=== PATIENT | male | born 1960 | race Caucasian/White ===

== ENCOUNTER 2018-07-20 13:21 | Emergency (ER) | payer OTHER ==
[2018-07-20 13:34] VITALS: RESP 18; TEMP 98.2
[2018-07-20 15:25] LABS: Basophils # (A) 0.1 k/uL (0-0.2); Basophils % (A) 1 %; Eosinophils # (A) 0.1 k/uL (0-0.7); Eosinophils % (A) 1 %; HCT 44.4 % (39.0-53.0); HGB 14.6 gm/dL (13.0-17.5); Lymphocytes # (A) 1.7 k/uL (1.0-4.8); Lymphocytes % (A) 25 %; MCH 34.8 pg (25.0-35.0); MCV 105.4 fL (80.0-100.0); Macrocytosis Slight; Mean Platelet Volume 6.8; Monocytes # (A) 0.3 k/uL (0-1.0); Monocytes % (A) 5 %; Neutrophils # (A) 4.4 k/uL (1.3-7.7); Neutrophils % (A) 67 %; Platelet Count 336 k/uL (150-450); RBC 4.21 m/uL (4.30-5.90); WBC 6.6 k/uL (3.8-10.6)
[2018-07-20 15:44] LABS: ALT 58 U/L (21-72); AST 94 U/L (17-59); Alkaline Phosphatase 83 U/L (38-126); Anion Gap 11 mmol/L; Blood Urea Nitrogen 16 mg/dL (9-20); Calcium 9.8 mg/dL (8.4-10.2); Carbon Dioxide 23 mmol/L (22-30); Chloride 103 mmol/L (98-107); Glucose 83 mg/dL (74-99); Potassium 5.1 mmol/L (3.5-5.1); Sodium 137 mmol/L (137-145); Total Bilirubin 0.9 mg/dL (0.2-1.3); Total Protein 7.6 g/dL (6.3-8.2)
--- NOTE | 2018-07-20 15:58 | ED ---
Recheck HPI - General Chief Complaint: Recheck/Abnormal Lab/Rx Stated Complaint: HTN Time Seen by Provider: 07/20/18 14:20 Source: patient Mode of arrival: ambulatory Limitations: no limitations - History of Present Illness Initial Comments: This a 58-year-old male with past medical history of hypertension presenting today after being sent by primary care provider for evaluation for elevated blood pressure reading. Patient states that he was at his primary care provider 's office's morning when he had an elevated blood pressure reading, and EKG was obtained which she obtained a copy of. He stated that they were not concerned of the EKG. Patient stated that repeat blood pressures in office were lowering , however physicians and stated that a more thorough evaluation could be obtained in the ER. Pt denies any symptoms including headache, chest pain, dizziness, oliguria, abdominal pain, shortness of breath, shortness of breath with exertion, visual changes, diplopia, palpatations, fever, chills, LE edema, muscle weakness, jaw pain, back pain, nausea, vomiting, diarrhea or any other symptoms. Pt denies symptoms stating that he feels great. Denies history of NH, CAD, TIA or CVA. Upon arrival pt 167/93. Pt appears well, smiling in no acute distress. - Related Data Home Medications Medication Instructions Recorded Confirmed Ibuprofen [Motrin Ib] 400 mg PO Q6H PRN 07/20/18 07/20/18 Previous Rx's Medication Instructions Recorded Lisinopril [Zestril] 5 mg PO DAILY 30 Days #30 tablet 07/20/18 Allergies Allergy/AdvReac Type Severity Reaction Status Date / Time No Known Allergies Allergy Verified 07/20/18 14:21 Review of Systems ROS Statement: Those systems with pertinent positive or pertinent negative responses have been documented in the HPI. ROS Other: All systems not noted in ROS Statement are negative. Constitutional: Denies: fever, chills, weakness, weight change, night sweats Eyes: Denies: vision change ENT: Denies: ear pain, throat pain, hearing loss, epistaxis Respiratory: Denies: cough, dyspnea, wheezes, hemoptysis, stridor Cardiovascular: Denies: chest pain, palpitations, dyspnea on exertion, orthopnea , edema Endocrine: Denies: fatigue Gastrointestinal: Denies: abdominal pain, nausea, vomiting, diarrhea, constipation, hematemesis Genitourinary: Denies: urgency, dysuria, frequency, hematuria, discharge Musculoskeletal: Denies: back pain Skin: Denies: rash, lesions, change in color Neurological: Denies: headache, weakness, numbness, paresthesias, confusion, abnormal gait, vertigo Past Medical History Past Medical History: Hypertension History of Any Multi-Drug Resistant Organisms: None Reported Past Surgical History: Orthopedic Surgery, Tonsillectomy Past Psychological History: No Psychological Hx Reported Smoking Status: Current every day smoker Past Alcohol Use History: Abuse, Daily Past Drug Use History: None Reported General Exam - General Exam Comments Initial Comments: General: The patient is awake and alert, in no distress, and does not appear acutely ill. Pleasant, smiling. (-) Levigns sign. Eye: Pupils are equal, round and reactive to light, extra-ocular movements are intact. No nystagmus. There is normal conjunctiva bilaterally. No signs of icterus. Ears, nose, mouth and throat: There are moist mucous membranes and no oral lesions. Neck: The neck is supple, there is no tenderness or JVD. Cardiovascular: There is a regular rate and rhythm. No murmur, rub or gallop is appreciated. Respiratory: Lungs are clear to auscultation, respirations are non-labored, breath sounds are equal. No wheezes, stridor, rales, or rhonchi. Gastrointestinal: Soft, non-distended, non-tender abdomen without masses or organomegaly noted. There is no rebound or guarding present. No CVA tenderness. Bowel sounds are unremarkable. Musculoskeletal: Normal ROM, no tenderness. Strength 5/5 of the UE and LE equally b/l. Sensation intact. Radial pulses equal bilaterally 2+. No LE edema. Neurological: A&O x 3. CN II-XII intact, There are no obvious motor or sensory deficits. Coordination appears grossly intact. Speech is normal. Skin: Skin is warm and dry and no rashes or lesions are noted. Psychiatric: Cooperative, appropriate mood & affect, normal judgment. Limitations: no limitations Course Vital Signs 07/20/18 07/20/18 13:31 16:00 Temperature 98.2 F Pulse Rate 97 99 Respiratory 18 18 Rate Blood Pressure 131/97 142/107 O2 Sat by Pulse 98 97 Oximetry Medical Decision Making - Medical Decision Making Pt presenting for elevated BP reading with no signs of EOD. EKG from primary care provider was obtained and reviewed by myself and Dr. Schroeder- no specific findings for ACS, heart block or arrythmia. Basic labs were obtained returned unremarkable. Given pt denies any symptoms of EOD. EKG within acceptable limits and lab unremarkable. Pt stated that primary care provider did not start him on BP medications yet, just sent him here first but scheduled an appointment next Monday for BP management. Repeat BP elevated, Pt was given 10mg lisinopril and an RX for 5mg lisinopril daily, thirty day supply according to [facility]NC-8 BP guideline for chronic HTN mgmt. Case discussed with both Dr. Schroeder and Dr. Holcomb prior to d/c. Pt discharged in stable condition. - Lab Data Result diagrams: 07/20/18 15:12 07/20/18 15:12 Lab Results 07/20/18 07/20/18 Range/Units 15:12 15:12 WBC 6.6 (3.8-10.6) k/uL RBC 4.21 L (4.30-5.90) m/uL Hgb 14.6 (13.0-17.5) gm/dL Hct 44.4 (39.0-53.0) % MCV 105.4 H (80.0-100.0) fL MCH 34.8 (25.0-35.0) pg MCHC 33.0 (31.0-37.0) g/dL RDW 13.0 (11.5-15.5) % Plt Count 336 (150-450) k/uL Neutrophils % 67 % Lymphocytes % 25 % Monocytes % 5 % Eosinophils % 1 % Basophils % 1 % Neutrophils # 4.4 (1.3-7.7) k/uL Lymphocytes # 1.7 (1.0-4.8) k/uL Monocytes # 0.3 (0-1.0) k/uL Eosinophils # 0.1 (0-0.7) k/uL Basophils # 0.1 (0-0.2) k/uL Macrocytosis Slight Sodium 137 (137-145) mmol/L Potassium 5.1 (3.5-5.1) mmol/L Chloride 103 (98-107) mmol/L Carbon Dioxide 23 (22-30) mmol/L Anion Gap 11 mmol/L BUN 16 (9-20) mg/dL Creatinine 0.96 (0.66-1.25) mg/dL Est GFR (CKD-EPI)AfAm >90 (>60 ml/min/1.73 sqM) Est GFR (CKD-EPI)NonAf 87 (>60 ml/min/1.73 sqM) Glucose 83 (74-99) mg/dL Calcium 9.8 (8.4-10.2) mg/dL Total Bilirubin 0.9 (0.2-1.3) mg/dL AST 94 H (17-59) U/L ALT 58 (21-72) U/L Alkaline Phosphatase 83 (38-126) U/L Total Protein 7.6 (6.3-8.2) g/dL Albumin 4.0 (3.5-5.0) g/dL Disposition Clinical Impression: Elevated blood pressure reading in office with diagnosis of hypertension Disposition: HOME SELF-CARE Condition: Good Instructions: Hypertension in the Older Adult (ED) Additional Instructions: Please follow-up with family doctor in the next 2 days for blood pressure management. Please return to emergency room if the symptoms increase or worsen or for any other concerns. Prescriptions: Lisinopril [Zestril] 5 mg PO DAILY 30 Days #30 tablet Is patient prescribed a controlled substance at d/c from ED?: No Referrals: Iveth Goode MD [Primary Care Provider] - 1-2 days Time of Disposition: 15:57
[2018-07-20 16:05] VITALS: BP 142/107; PULSE 99
[2018-07-20] MEDS ORDERED: LISINOPRIL 10 MG TAB PO STA (16:07)
== END 2018-07-20 16:26 | disposition home or self-care (01) ==
LOC: EC 13:21
DX: I10 Essential (primary) hypertension (principal); F17.200 Nicotine dependence, unspecified, uncomplicated
CPT/HCPCS: 36415; 80053; 85025; 99283

== ENCOUNTER → 2018-10-01 | Day surgery (SDC) | payer OTHER ==
[2018-09-28 08:45] VITALS: BMI 29.4
[~2018-10-01] MED LIST: LACTATED RINGERS 1,000 ML IV SCH
== END ==
LOC: ORWHC2ENDO 08:39
PROVIDERS: ATTEND Surgery
DX: Z53.9 Procedure and treatment not carried out, unspecified reason (principal)

== ENCOUNTER 2021-12-14 12:53 | Emergency (ER) | payer OTHER ==
[2021-12-14 13:43] VITALS: TEMP 98.5
--- NOTE | 2021-12-14 14:40 | XR ---
EXAMINATION TYPE: XR foot complete bilateral DATE OF EXAM: 12/14/2021 CLINICAL HISTORY: Bilateral foot and heel pain. TECHNIQUE: Frontal, lateral, and oblique images of the bilateral feet are obtained. COMPARISON: None FINDINGS: There is no acute fracture/dislocation evident in either foot. The Vidal's toe is present bilaterally. Mild to moderate narrowing first interphalangeal joint with moderate peripheral spurrin g is seen bilaterally. There is partial visualization of surgical change in the lateral and medial ma lleolus of the left ankle. Overlying soft tissue is unremarkable bilaterally. There is some calcifica tion at distal Achilles tendon insertion on the right noted. IMPRESSION: As above.
[2021-12-14] MEDS ORDERED: Acetaminophen-Codeine 300-30mg TAB PO STA (16:57)
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
[2021-12-14 17:25] VITALS: RESP 18
[2021-12-14 17:59] LABS: ALT 15 U/L (4-49); AST 27 U/L (17-59); African American GFR (CKD) >90 (>60 ml/min/1.73 sqM); Albumin 4.5 g/dL (3.5-5.0); Alkaline Phosphatase 57 U/L (38-126); Anion Gap 13 mmol/L; Blood Urea Nitrogen 8 mg/dL (9-20); Calcium 9.3 mg/dL (8.4-10.2); Carbon Dioxide 19 mmol/L (22-30); Chloride 108 mmol/L (98-107); Glucose 92 mg/dL (74-99); Non-African American GFR(CKD) >90 (>60 ml/min/1.73 sqM); Potassium 4.7 mmol/L (3.5-5.1); Sodium 140 mmol/L (137-145); Total Bilirubin 1.2 mg/dL (0.2-1.3); Total Protein 7.7 g/dL (6.3-8.2)
[2021-12-14] MEDS ORDERED: ACET/COD 300 MG/30 MG STARTER PACK 6 TAB BTL PO STA (19:13)
[2021-12-14 19:26] VITALS: BP 150/84; PULSE 88
== END 2021-12-14 19:25 | disposition home or self-care (01) ==
LOC: EC 12:53
DX: R20.2 Paresthesia of skin (principal); M79.672 Pain in left foot; I10 Essential (primary) hypertension; F17.200 Nicotine dependence, unspecified, uncomplicated; F12.90 Cannabis use, unspecified, uncomplicated
CPT/HCPCS: 36415; 80053; 82607; 83036; 99284

== ENCOUNTER → 2021-12-17 | Outpatient (CLI) | payer OTHER ==
--- NOTE | 2021-12-17 14:32 | US ---
EXAMINATION TYPE: US venous doppler duplex LE LT DATE OF EXAM: 12/17/2021 2:20 PM COMPARISON: US 2013 CLINICAL HISTORY: M79.89 OTHER SPECIFIED SOFT TISSUE DISORDERS. Intermittent left leg pain and swelli ng SIDE PERFORMED: Left TECHNIQUE: The lower extremity deep venous system is examined utilizing real time linear array sonog stepan with graded compression, doppler sonography and color-flow sonography. VESSELS IMAGED: Common Femoral Vein Deep Femoral Vein Greater Saphenous Vein * Femoral Vein Popliteal Vein Small Saphenous Vein * Proximal Calf Veins (* superficial vessels) Left Leg: Appears negative for DVT IMPRESSION: No evidence for DVT.
== END | disposition home or self-care (01) ==
LOC: RADUSWWP 13:52
PROVIDERS: ATTEND Family Medicine
DX: M79.89 Other specified soft tissue disorders (principal)

== ENCOUNTER → 2022-09-19 | Outpatient (CLI) | payer OTHER ==
--- NOTE | 2022-09-19 10:42 | XR ---
EXAMINATION TYPE: XR ribs LT w pa chest xray DATE OF EXAM: 09/19/2022 COMPARISON: NONE HISTORY: Pain TECHNIQUE: Frontal view of the chest and 4 views of the left ribs are submitted FINDINGS: Chronic left-sided rib cage deformity. Heart size normal. Atherosclerotic change aorta. No overt failure. No pneumothorax. No acute displaced rib fracture. IMPRESSION: Chronic left-sided rib fractures with no definite acute fracture.
== END | disposition home or self-care (01) ==
LOC: RADXRMAIN 10:07
PROVIDERS: ATTEND Family Medicine
DX: S22.42XA Multiple fractures of ribs, left side, initial encounter for closed fracture (principal); R93.89 Abnormal findings on diagnostic imaging of other specified body structures; Z87.81 Personal history of (healed) traumatic fracture

== ENCOUNTER → 2023-02-08 | Outpatient (CLI) | payer OTHER ==
[2023-02-08 15:24] LABS: HCT 41.4 % (39.6-50.0); HGB 14.2 g/dL (13.0-17.0); MCH 31.3 pg (27.0-32.0); MCHC 34.3 g/dL (32.0-37.0); MCV 91.4 fL (80.0-97.0); Mean Platelet Volume 9.6 fL (9.5-12.2); NRBC Per 100 WBC 0 /100 WBCS (0.0-0.0); Platelet Count 295 X 10*3/uL (140-440); RBC 4.53 X 10*6/uL (4.40-5.60); RDW 12.5 % (11.5-14.5); WBC 7.01 X 10*3/uL (4.50-10.00)
[2023-02-08 16:23] LABS: African American GFR (CKD) 92.4 (60.0-200.0); Anion Gap 10.9 mmol/L (10.00-18.00); Blood Urea Nitrogen 16.7 mg/dL (9.0-27.0); Carbon Dioxide 24.1 mmol/L (20.0-27.5); Non-African American GFR(CKD) 79.7 (60.0-200.0); Potassium 5.2 mmol/L (3.5-5.5)
== END | disposition home or self-care (01) ==
LOC: LABPAT 09:53
PROVIDERS: ATTEND Internal Medicine
DX: Z01.812 Encounter for preprocedural laboratory examination (principal); R00.2 Palpitations; R06.02 Shortness of breath
CPT/HCPCS: 80051; 82565; 84520; 85027

== ENCOUNTER 2023-02-21 08:12 | Day surgery (SDC) | payer OTHER ==
[2023-02-16 18:04] VITALS: BMI 33.7
[~2023-02-21 08:12] MED LIST changes: +ALPRAZolam 0.25 MG TAB PO PRN; +ALPRAZolam 0.5 MG TAB PO PRN; +ASPIRIN 325 MG TAB PO ONE; +ATORVASTATIN 80 MG TAB PO ONE; +HEPARIN SODIUM,PORCINE 10,000 UNIT in SODIUM CHLORIDE 0.9% 1,000 ML IRRIGATION PRN; +HEPARIN SODIUM,PORCINE 2,500 UNIT in SODIUM CHLORIDE 0.9% 250 ML IRRIGATION PRN; -LACTATED RINGERS 1,000 ML IV SCH; +NITROGLYCERIN SL TABS 0.4 MG TAB SUBLINGUAL PRN; +SODIUM CHLORIDE 0.9% 1,000 ML in EMPTY BAG 1 BAG IV SCH
[2023-02-21] MEDS ORDERED: SODIUM CHLORIDE 0.9% 1,000 ML IV ONE (08:23)
[2023-02-21 10:25] VITALS: TEMP 97.6
[2023-02-21] MEDS ORDERED: VERAPAMIL 2.5 MG/ML 2 ML AMP ONE (10:35)
[2023-02-21] MEDS ORDERED: fentaNYL (PF) 50 MCG/ML 2 ML AMP ONE (10:41)
[2023-02-21] MEDS ORDERED: HEPARIN SODIUM 1,000 UN/ML (10ML VL) ONE (10:41)
[2023-02-21] MEDS ORDERED: fentaNYL (PF) 50 MCG/ML 2 ML AMP IV ONE (10:50)
[2023-02-21] MEDS ORDERED: MIDAZOLAM 2 MG/2 ML VIAL IV ONE (10:50)
[2023-02-21] MEDS ORDERED: LIDOCAINE 1% INJ 10MG/ML (5 ML VIAL-PF) SQ ONE (10:52)
[2023-02-21] MEDS ORDERED: VERAPAMIL SYRINGE (5 MG/10 ML) INTRAARTER ONE (10:53)
[2023-02-21] MEDS: HEPARIN SODIUM 1,000 UN/ML (10ML VL) IV ONE ×2 (10:56→11:13)
[2023-02-21] MEDS ORDERED: IOPAMIDOL-370 100ML BTL INJ ONE ×2 (11:09→11:22)
[2023-02-21 16:47] VITALS: RESP 16
[2023-02-21 16:51] VITALS: PULSE 86
[2023-02-21 16:54] VITALS: BP 139/71
--- NOTE | 2023-02-22 22:41 | P.CARDCATH ---
Date of Procedure: 02/21/23 Description of Procedure: PROCEDURES PERFORMED: Bilateral coronary angiography, iFR RCA INDICATION: Abnormal stress test CONSENT:I have discussed the risks, benefits and alternative therapies for the above-mentioned procedure and for both sedation/analgesia as well as necessary blood product administration, if indicated, as they pertain to this patient. The patient has indicated understanding and acceptance of the risks and procedures discussed. PROCEDURE: After the risks, benefits and alternatives of the above mentioned procedure explained in detail with the patient, informed consent was obtained. Patient was taken to the catheterization lab and prepped and draped in usual fashion. 1% lidocaine was used to anesthetize the right radial artery. A 6- Guyanese sheath was placed in the right radial artery using modified Seldinger technique. Left coronary angiography was performed with a 5-Guyanese JL 3.5 catheter and right coronary angiography was performed with a 5-Guyanese JR5 catheter in various views. The decision was made to perform iFR of the RCA. A 6-Guyanese AL 0.75 guide was used to engage the RCA. A 0.014 pressure wire was advanced into the proximal RCA and normalized. The wire was then advanced in the distal RCA. iFR was performed and was abnormal at 0.79. Given diffuse disease with likely significant difficulty of intervention initial medical therapy was recommended. The right radial sheath was removed and a TR band was placed with hemostasis achieved. The patient tolerated the procedure well. Patient was transported back to the post catheterization holding area in stable condition. Conscious Sedation: Patient was monitored under the direct supervision of myself for conscious sedation using Versed and fentanyl for a total duration of 24 minutes HEMODYNAMICS: Aorta: 144/76 SELECTIVE CORONARY ARTERIOGRAPHY: LEFT MAIN: The left main is a large caliber vessel which bifurcates into the LAD and circumflex. There is no significant stenosis. LEFT ANTERIOR DESCENDING CORONARY ARTERY: LAD is a large caliber vessel which wraps around to the apex. There is a mid LAD 40-50% stenosis just after the takeoff of 2 diagonal branches with nearly trifurcation. Otherwise there are mild luminal irregularities. LEFT CIRCUMFLEX CORONARY ARTERY: Left circumflex is a moderate caliber vessel with mild luminal irregularities. OM1 is small caliber and OM2 is moderate caliber with a mid 60-70% stenosis. RIGHT CORONARY ARTERY: The right coronary artery is a large caliber vessel which gives off a PDA and PLV branch and is the dominant vessel. There is diffuse heavily calcified stenosis with proximal long 50-80% stenosis and mid to distal diffuse 50-80% stenosis. FINAL IMPRESSION: 1. CAD as described above including 40-50% LAD, OM2 60-70%, proximal and distal RCA 50-80% stenosis 2. iFR abnormal of RCA PLAN: 1. Aggressive risk factor modification per most recent ACC/AHA guidelines. 2. Given long, heavily calcified and diffuse disease with likely difficult stenting with iFR wire pushing out the AL 0.75 guide, recommend trial of medical therapy. If having further angina, may consider trial of PCI likely from a femoral approach and possibly with 8FR catheters.
== END 2023-02-21 15:41 | disposition home or self-care (01) ==
LOC: CATHCVL 08:12
PROVIDERS: ATTEND Internal Medicine
DX: I25.10 Atherosclerotic heart disease of native coronary artery without angina pectoris (principal); I25.9 Chronic ischemic heart disease, unspecified; I49.3 Ventricular premature depolarization; I10 Essential (primary) hypertension; E78.5 Hyperlipidemia, unspecified; F10.90 Alcohol use, unspecified, uncomplicated; F17.210 Nicotine dependence, cigarettes, uncomplicated; Z82.49 Family history of ischemic heart disease and other diseases of the circulatory system; Z79.899 Other long term (current) drug therapy
CPT/HCPCS: 93454; 93799; 76937; 99152; 99153; C1887; C1769 ×2; C1894; J2250; J2001; J3010; J1644; Q9967

== ENCOUNTER 2023-12-03 14:29 | Inpatient (IN) | payer OTHER ==
--- NOTE | 2023-12-03 15:58 | ED ---
Abdominal Pain HPI - General Chief Complaint: Abdominal Pain Stated Complaint: NVD/Weakness Time Seen by Provider: 12/03/23 15:24 Source: patient, RN notes reviewed Mode of arrival: ambulatory Limitations: no limitations - History of Present Illness Initial Comments: This is a 63-year-old male who presents to the emergency department for weakness, shortness of breath, and heartburn. About a week ago, he had severe nausea and vomiting. That improved, however over the last several days anytime he tries to eat or even drink water, he develops severe heartburn almost immediately afterwards. He has been taking Tums, which have not been effective. Also reports feeling very weak and short of breath, which is uncommon for him. Denies any history of similar symptoms in the past. States that he barely has the energy to move through his apartment. MD Complaint: abdominal pain - Related Data Home Medications Medication Instructions Recorded Confirmed Atorvastatin [Lipitor] 20 mg PO HS 02/16/23 12/03/23 allopurinoL 100 mg PO DAILY 02/16/23 12/03/23 amLODIPine [Norvasc] 10 mg PO DAILY 02/16/23 12/03/23 Calcium Carbonate [Tums] 1,000 mg PO TID PRN 12/03/23 12/03/23 Allergies Allergy/AdvReac Type Severity Reaction Status Date / Time No Known Allergies Allergy Verified 12/03/23 14:45 Review of Systems ROS Statement: Those systems with pertinent positive or pertinent negative responses have been documented in the HPI. ROS Other: All systems not noted in ROS Statement are negative. Past Medical History Past Medical History: Hyperlipidemia, Hypertension, Osteoarthritis (OA) Additional Past Medical History / Comment(s): gout, past skull fracture (fell off bridge), tingling at times bilateral hands History of Any Multi-Drug Resistant Organisms: None Reported Past Surgical History: Orthopedic Surgery, Tonsillectomy Additional Past Surgical History / Comment(s): L foot plate/screws, rhinoplasty Past Anesthesia/Blood Transfusion Reactions: No Reported Reaction Past Psychological History: No Psychological Hx Reported Smoking Status: Current every day smoker Past Alcohol Use History: Abuse, Daily, Heavy Past Drug Use History: Marijuana - Past Family History Mother Family Medical History: Cancer Additional Family Medical History / Comment(s): Pt cannot recall type of cancer. Father Additional Family Medical History / Comment(s): ETOH General Exam Limitations: no limitations General appearance: alert, in no apparent distress Head exam: Present: atraumatic, normocephalic, normal inspection Respiratory exam: Present: normal lung sounds bilaterally. Absent: respiratory distress, wheezes, rales, rhonchi, stridor Cardiovascular Exam: Present: normal rhythm, tachycardia, normal heart sounds GI/Abdominal exam: Present: soft, normal bowel sounds. Absent: distended, tenderness, guarding, rebound, rigid Neurological exam: Present: alert, oriented X3, CN II-XII intact Psychiatric exam: Present: normal affect, normal mood Skin exam: Present: warm, dry, intact, normal color. Absent: rash Course Vital Signs 12/03/23 12/03/23 12/03/23 14:41 15:41 20:20 Temperature 98.4 F Pulse Rate 70 79 76 Respiratory 22 20 20 Rate Blood Pressure 100/75 138/105 140/101 O2 Sat by Pulse 99 97 97 Oximetry 12/03/23 12/03/23 12/04/23 22:05 22:11 00:00 Temperature Pulse Rate 74 68 Respiratory Rate Blood Pressure 144/102 O2 Sat by Pulse Oximetry 12/04/23 12/04/23 02:10 04:17 Temperature Pulse Rate 66 76 Respiratory 18 18 Rate Blood Pressure 125/89 112/77 O2 Sat by Pulse 97 98 Oximetry Medical Decision Making - Medical Decision Making This is a 63-year-old male who presents to the emergency department for weakness, shortness of breath, and heartburn. Was pt. sent in by a medical professional or institution? @ -No Did you speak to anyone other than the patient for history? @ -No Did you review nursing and triage notes? @ -Yes, and I agree, it is accurate with regards to the patient's symptoms. Were old charts reviewed? @ -No Differential Diagnosis? @ -Differential Weakness: Hypoglycemia, shock, sepsis, hyponatremia, anemia, infection, NC, ETOH, adverse medicine reaction, overdose, stroke, this is not meant to be an all-inclusive list. EKG interpreted by me (3pts min.)? @ -EKG interpreted by me demonstrating the following: Sinus tachycardia. Ventricular rate 107 bpm, HI interval 189 ms, QRS duration 95 ms, QTC 381 ms. X-rays interpreted by me (1pt min.)? @ -Chest x-ray obtained. My interpretation identifies no localized consolidations or infiltrates. CT interpreted by me (1pt min.)? @ -Not obtained U/S interpreted by me (1pt. min.)? @ -Gallbladder US obtained. My interpretation identifies no evidence of wall thickening. What testing was considered but not performed? (CT, X-rays, U/S, labs)? Why? @ -None What meds were considered but not given? Why? @ -None Did you discuss the management of the patient with other professionals? @ -Yes, Virginia Barron with [facility], who accepts the patient for admission. Did you reconcile home meds? @ -Yes - Tums on hold due to hypercalcemia Was smoking cessation discussed for >3mins.? @ -I discussed smoking cessation for greater than 3 minutes. The risk of smoking were discussed with the patient including but not limited to risks of cancer, stroke, coronary artery disease and COPD. Also discussed with patient were multiple methods of quitting smoking. Lastly we discussed the financial cost of smoking. Was critical care preformed (if so, how long)? @ -No Were there social determinants of health that impacted care today? How? (Homelessness, low income, unemployed, alcoholism, drug addiction, transportatio n, low edu. Level, literacy, decrease access to med. care, residential, rehab)? @ -No Was there de-escalation of care discussed even if they declined? (Discuss DNR or withdrawal of care, Hospice)? @ -No What co-morbidities impacted this encounter? (DM, HTN, Smoking, COPD, CAD, Cancer, CVA, Hep., AIDS, mental health diagnosis, sleep apnea, morbid obesity)? @ -HTN, HLD, smoking Was patient admitted / discharged? @ -Admitted. Lab work obtained revealing critically elevated calcium of 16.5 and ionized calcium of 8.0. LFTs are also elevated. Magnesium slightly low at 1.5. Chest x-ray reveals no acute process. Ultrasound of the gallbladder obtained given the elevated LFTs. This revealed hepatic steatosis with biliary sludge and adenomyomatosis. CBD was within normal limits and no acute process was identified. Given the patient's excessive alcohol use, this is unlikely to be suggestive of an acute problem and can likely be worked up on a nonemergent basis. Patient not currently exhibiting any abdominal pain. Heartburn may be related to GERD or a gastritis. He was given a dose of pantoprazole in the emergency department. Patient given 2 L bolus of IV fluids and started on maintenance IV fluids for hypercalcemia. Calcitonin also administered given the critically elevated calcium level as well as 400 mg of magnesium oxide. Patient admitted to medicine for hypercalcemia and weakness. PTH, vitamin D, hepatitis panel, and heterophile ordered with results pending at the time of admission. Patient has been using Tums fairly excessively due to heartburn, which may be a contributing factor to the hypercalcemia. Tums listed under patient's home meds and placed on hold due to hypercalcemia. Consult placed for nephrology and general surgery. Undiagnosed new problem with uncertain prognosis? @ -None Drug Therapy requiring intensive monitoring for toxicity (Heparin, Nitro, Insulin, Cardizem)? @ -None Were any procedures done? @ -None Diagnosis/symptom? @ -Hypercalcemia, weakness Acute, or Chronic, or Acute on Chronic? @ -Acute Uncomplicated (without systemic symptoms) or Complicated (systemic symptoms)? @ -Complicated Side effects of treatment? @ -None Exacerbation, Progression, or Severe Exacerbation] @ -Not applicable Poses a threat to life or bodily function? @ -Yes This case was discussed in detail with the attending ED physician, Dr. Mathews. Presentation, findings, and treatment plan discussed in detail as well. - Lab Data Result diagrams: 12/03/23 15:51 12/03/23 15:51 Lab Results 12/03/23 12/03/23 12/03/23 Range/Units 15:51 15:51 15:51 WBC 5.5 (3.8-10.6) k/uL RBC 4.93 (4.30-5.90) m/uL Hgb 16.5 (13.0-17.5) gm/dL Hct 48.5 (39.0-53.0) % MCV 98.5 (80.0-100.0) fL MCH 33.6 (25.0-35.0) pg MCHC 34.1 (31.0-37.0) g/dL RDW 13.3 (11.5-15.5) % Plt Count 269 (150-450) k/uL MPV 8.3 Neutrophils % 54 % Lymphocytes % 27 % Monocytes % 15 % Eosinophils % 1 % Basophils % 1 % Neutrophils # 2.9 (1.3-7.7) k/uL Lymphocytes # 1.5 (1.0-4.8) k/uL Monocytes # 0.8 (0-1.0) k/uL Eosinophils # 0.1 (0-0.7) k/uL Basophils # 0.1 (0-0.2) k/uL PT (10.0-12.5) sec INR (<1.2) APTT (22.0-30.0) sec D-Dimer (<0.60) mg/L FEU Sodium 136 L (137-145) mmol/L Potassium 4.2 (3.5-5.1) mmol/L Chloride 94 L (98-107) mmol/L Carbon Dioxide 33 H (22-30) mmol/L Anion Gap 9 mmol/L BUN 23 H (9-20) mg/dL Creatinine 1.32 H (0.66-1.25) mg/dL Est GFR (CKD-EPI)AfAm 66 (>60 ml/min/1.73 sqM) Est GFR (CKD-EPI)NonAf 57 (>60 ml/min/1.73 sqM) Glucose 119 H (74-99) mg/dL Plasma Lactic Acid Chau 1.8 (0.7-2.0) mmol/L Calcium 16.5 H* (8.4-10.2) mg/dL Ionized Calcium Lucho (4.5-5.3) mg/dL Phosphorus (2.5-4.5) mg/dL Magnesium (1.6-2.3) mg/dL Total Bilirubin 0.9 (0.2-1.3) mg/dL AST 648 H (17-59) U/L ALT 514 H (4-49) U/L Alkaline Phosphatase 79 (38-126) U/L Troponin I (0.000-0.034) ng/mL Total Protein 7.7 (6.3-8.2) g/dL Albumin 4.5 (3.5-5.0) g/dL Amylase 54 (30-110) U/L Lipase 247 (23-300) U/L Heterophile Antibody (Negative) 12/03/23 12/03/23 12/03/23 Range/Units 16:39 16:39 16:39 WBC (3.8-10.6) k/uL RBC (4.30-5.90) m/uL Hgb (13.0-17.5) gm/dL Hct (39.0-53.0) % MCV (80.0-100.0) fL MCH (25.0-35.0) pg MCHC (31.0-37.0) g/dL RDW (11.5-15.5) % Plt Count (150-450) k/uL MPV Neutrophils % % Lymphocytes % % Monocytes % % Eosinophils % % Basophils % % Neutrophils # (1.3-7.7) k/uL Lymphocytes # (1.0-4.8) k/uL Monocytes # (0-1.0) k/uL Eosinophils # (0-0.7) k/uL Basophils # (0-0.2) k/uL PT 11.6 (10.0-12.5) sec INR 1.1 (<1.2) APTT 19.7 L (22.0-30.0) sec D-Dimer 0.49 (<0.60) mg/L FEU Sodium (137-145) mmol/L Potassium (3.5-5.1) mmol/L Chloride (98-107) mmol/L Carbon Dioxide (22-30) mmol/L Anion Gap mmol/L BUN (9-20) mg/dL Creatinine (0.66-1.25) mg/dL Est GFR (CKD-EPI)AfAm (>60 ml/min/1.73 sqM) Est GFR (CKD-EPI)NonAf (>60 ml/min/1.73 sqM) Glucose (74-99) mg/dL Plasma Lactic Acid Chau (0.7-2.0) mmol/L Calcium (8.4-10.2) mg/dL Ionized Calcium Lucho 8.0 H* (4.5-5.3) mg/dL Phosphorus 3.2 (2.5-4.5) mg/dL Magnesium 1.5 L (1.6-2.3) mg/dL Total Bilirubin (0.2-1.3) mg/dL AST (17-59) U/L ALT (4-49) U/L Alkaline Phosphatase (38-126) U/L Troponin I <0.012 (0.000-0.034) ng/mL Total Protein (6.3-8.2) g/dL Albumin (3.5-5.0) g/dL Amylase (30-110) U/L Lipase (23-300) U/L Heterophile Antibody (Negative) 12/03/23 Range/Units 16:39 WBC (3.8-10.6) k/uL RBC (4.30-5.90) m/uL Hgb (13.0-17.5) gm/dL Hct (39.0-53.0) % MCV (80.0-100.0) fL MCH (25.0-35.0) pg MCHC (31.0-37.0) g/dL RDW (11.5-15.5) % Plt Count (150-450) k/uL MPV Neutrophils % % Lymphocytes % % Monocytes % % Eosinophils % % Basophils % % Neutrophils # (1.3-7.7) k/uL Lymphocytes # (1.0-4.8) k/uL Monocytes # (0-1.0) k/uL Eosinophils # (0-0.7) k/uL Basophils # (0-0.2) k/uL PT (10.0-12.5) sec INR (<1.2) APTT (22.0-30.0) sec D-Dimer (<0.60) mg/L FEU Sodium (137-145) mmol/L Potassium (3.5-5.1) mmol/L Chloride (98-107) mmol/L Carbon Dioxide (22-30) mmol/L Anion Gap mmol/L BUN (9-20) mg/dL Creatinine (0.66-1.25) mg/dL Est GFR (CKD-EPI)AfAm (>60 ml/min/1.73 sqM) Est GFR (CKD-EPI)NonAf (>60 ml/min/1.73 sqM) Glucose (74-99) mg/dL Plasma Lactic Acid Chau (0.7-2.0) mmol/L Calcium (8.4-10.2) mg/dL Ionized Calcium Lucho (4.5-5.3) mg/dL Phosphorus (2.5-4.5) mg/dL Magnesium (1.6-2.3) mg/dL Total Bilirubin (0.2-1.3) mg/dL AST (17-59) U/L ALT (4-49) U/L Alkaline Phosphatase (38-126) U/L Troponin I (0.000-0.034) ng/mL Total Protein (6.3-8.2) g/dL Albumin (3.5-5.0) g/dL Amylase (30-110) U/L Lipase (23-300) U/L Heterophile Antibody Negative (Negative) - Radiology Data Radiology results: report reviewed, image reviewed Disposition Clinical Impression: Hypercalcemia, Weakness, Nicotine dependence Disposition: ADMITTED IP TO THIS [facility] Time of Disposition: 18:00
[2023-12-03 16:08] LABS: Basophils # (A) 0.1 k/uL (0-0.2); Basophils % (A) 1 %; Eosinophils # (A) 0.1 k/uL (0-0.7); Eosinophils % (A) 1 %; HCT 48.5 % (39.0-53.0); HGB 16.5 gm/dL (13.0-17.5); Lymphocytes # (A) 1.5 k/uL (1.0-4.8); Lymphocytes % (A) 27 %; MCH 33.6 pg (25.0-35.0); MCHC 34.1 g/dL (31.0-37.0); MCV 98.5 fL (80.0-100.0); Mean Platelet Volume 8.3; Monocytes # (A) 0.8 k/uL (0-1.0); Monocytes % (A) 15 %; Neutrophils # (A) 2.9 k/uL (1.3-7.7); Neutrophils % (A) 54 %; Platelet Count 269 k/uL (150-450); RBC 4.93 m/uL (4.30-5.90); RDW 13.3 % (11.5-15.5); WBC 5.5 k/uL (3.8-10.6)
[2023-12-03 16:10] LABS: ALT 514 U/L (4-49); AST 648 U/L (17-59); African American GFR (CKD) 66 (>60 ml/min/1.73 sqM); Albumin 4.5 g/dL (3.5-5.0); Alkaline Phosphatase 79 U/L (38-126); Amylase 54 U/L (30-110); Anion Gap 9 mmol/L; Blood Urea Nitrogen 23 mg/dL (9-20); Carbon Dioxide 33 mmol/L (22-30); Chloride 94 mmol/L (98-107); Glucose 119 mg/dL (74-99); Lipase 247 U/L (23-300); Non-African American GFR(CKD) 57 (>60 ml/min/1.73 sqM); Potassium 4.2 mmol/L (3.5-5.1); Sodium 136 mmol/L (137-145); Total Bilirubin 0.9 mg/dL (0.2-1.3); Total Protein 7.7 g/dL (6.3-8.2)
[2023-12-03 16:21] LABS: Calcium 16.5 mg/dL (8.4-10.2)
[2023-12-03] MEDS: SODIUM CHLORIDE 0.9% 1,000 ML IV STA ×3 (16:33→19:13)
[2023-12-03 17:09] LABS: INR 1.1 (<1.2); Prothrombin Time 11.6 sec (10.0-12.5)
[2023-12-03 17:28] LABS: Partial Thromboplastin Time 19.7 sec (22.0-30.0)
[2023-12-03 17:31] LABS: Magnesium 1.5 mg/dL (1.6-2.3); Phosphorus 3.2 mg/dL (2.5-4.5)
--- NOTE | 2023-12-03 17:33 | US ---
EXAMINATION TYPE: US gallbladder DATE OF EXAM: 12/03/2023 COMPARISON: NONE CLINICAL INDICATION: Male, 63 years old with history of Elevated LFTs, N/V; N/V, elevated LFT's TECHNIQUE: Multiple sonographic images of the right upper quadrant are obtained. FINDINGS: EXAM MEASUREMENTS: Liver Length: 20.2 cm Gallbladder Wall: 0.3 cm CBD: 0.3 cm Right Kidney: 11.6 x 5.7 x 6.5 cm Pancreas: Obscured by bowel gas Liver: Enlarged, heterogeneous with increased echotexture. Gallbladder: Sludge with possible adenomyomatosis anterior wall comet tail artifact present. The wal ls are within normal limits.. Evidence for sonographic Collier's sign: No CBD: wnl Right Kidney: wnl IMPRESSION: 1. Hepatic steatosis. 2. Biliary sludge with fundal adenomyomatosis.
[2023-12-03] MEDS: MAGNESIUM OXIDE 400 MG TAB PO STA (18:01)
[2023-12-03] MEDS ORDERED: NALOXONE 0.4 MG/ML 1 ML VIAL IV PRN (18:02)
[2023-12-03] MEDS ORDERED: MORPHINE SULFATE 4 MG/ML SYRINGE IV PRN (18:02)
[2023-12-03] MEDS ORDERED: ACETAMINOPHEN TAB 325 MG TAB PO PRN (18:02)
[2023-12-03 18:37] LABS: Appearance,Urine Cloudy (Clear); Bacteria,Urine Rare /hpf; Bilirubin,Urine Negative (Negative); Blood,Urine Trace (Negative); Cellular Casts,Urine 9 /lpf (0); Color,Urine Yellow; Glucose,Urine (UA) Negative (Negative); Hyaline Casts,Urine 31 /lpf (0-2); Ketones,Urine Negative (Negative); Leukocyte Esterase,Urine Small (Negative); Mucus,Urine Few /hpf; Nitrite,Urine Negative (Negative); PH, Urine 5.5 (5.0-8.0); Protein,Urine 1+ (Negative); RBC,Urine 5 /hpf (0-5); Specific Gravity,Urine 1.028 (1.001-1.035); Squamous Epithelial Cell,Urine 1 /hpf (0-4); Triple Phosphate Crystal,Urine Occasional /hpf; WBC,Urine 24 /hpf (0-5)
[2023-12-03] MEDS: CALCITONIN INJ 200 UNIT/ML (MDV) VIAL SQ ONE (19:12)
--- NOTE | 2023-12-03 19:13 | XR ---
EXAMINATION TYPE: XR chest 2V DATE OF EXAM: 12/03/2023 6:25 PM CLINICAL INDICATION:Male, 63 years old with history of BARRY; [facility] COMPARISON: Chest radiographs from 09/19/2022 TECHNIQUE: XR chest 2V Frontal and lateral views of the chest. FINDINGS: Lungs/Pleura: There is no evidence of pleural effusion, focal consolidation, or pneumothorax. Pulmonary vascularity: Unremarkable. Heart/mediastinum: Cardiomediastinal silhouette is unremarkable. Musculoskeletal: No acute osseous pathology. IMPRESSION: No acute cardiopulmonary disease/process.
[2023-12-03] MEDS: FAMOTIDINE 20 MG/2 ML VIAL IV STA (20:12)
[2023-12-03] MEDS: MAG HYDROX/AL HYDROX/SIMETH 30 ML, HYOSCYAMINE ELIXIR 10 ML, LIDOCAINE VISCOUS 2% 10 ML PO STA (20:12)
[2023-12-03] MEDS: PANTOPRAZOLE 40 MG/10 ML VIAL IVP STA (20:17)
[2023-12-03] MEDS: ATORVASTATIN 20 MG TAB PO SCH (22:03)
[2023-12-04] MEDS: PANTOPRAZOLE 40 MG/10 ML VIAL IV SCH (08:55)
[2023-12-04] MEDS: allopurinoL 100 MG TAB PO SCH (08:59)
[2023-12-04] MEDS: amLODIPine 10 MG TAB PO SCH (08:59)
[2023-12-04 09:54] LABS: ALT 380 U/L (4-49); AST 407 U/L (17-59); African American GFR (CKD) >90 (>60 ml/min/1.73 sqM); Albumin 3.5 g/dL (3.5-5.0); Albumin/Globulin Ratio 1.3; Alkaline Phosphatase 62 U/L (38-126); Anion Gap 5 mmol/L; Blood Urea Nitrogen 16 mg/dL (9-20); Calcium 11.2 mg/dL (8.4-10.2); Carbon Dioxide 34 mmol/L (22-30); Chloride 99 mmol/L (98-107); Globulin 2.6 g/dL; Glucose 102 mg/dL (74-99); Non-African American GFR(CKD) >90 (>60 ml/min/1.73 sqM); Potassium 3.9 mmol/L (3.5-5.1); Sodium 138 mmol/L (137-145); Total Bilirubin 0.8 mg/dL (0.2-1.3); Total Protein 6.1 g/dL (6.3-8.2)
[2023-12-04 10:06] LABS: Hepatitis A Antibody IgM Nonreactive; Hepatitis B Core IgM Nonreactive; Hepatitis B Surface Antigen Nonreactive; Hepatitis C IgG Antibody Nonreactive
--- NOTE | 2023-12-04 11:53 | P.GSCN ---
History of Present Illness Consult date: 12/04/23 History of present illness: CHIEF COMPLAINT: Heartburn HISTORY OF PRESENT ILLNESS: This is a 63-year-old male who presented to the ER with complaints of heartburn weakness and shortness of breath. Patient reports that he has been having significant heartburn after eating. He is also been having nausea and vomiting. Denies abdominal pain. But does report that the h eartburn does go down into the epigastric area. He has been taking a lot of Tums with no improvement in symptoms. He drinks a pint of whiskey daily. Last alcoholic beverage was on Monday. Patient gallbladder ultrasound completed reporting hepatic steatosis and biliary sludge with fundal adenomyomatosis. Patient denies any blood thinners. Denies any cardiac history. He is a smoker. Patient is on room air satting at 97%. PAST MEDICAL HISTORY: Hyperlipidemia, Hypertension, Osteoarthritis (OA),gout, past skull fracture (fell off bridge), PAST SURGICAL HISTORY: See below. Orthopedic Surgery, Tonsillectomy MEDICATIONS: See below ALLERGIES: See below SOCIAL HISTORY: No illicit drug use. Daily alcohol use. Nicotine dependence. REVIEW OF SYSTEMS: CONSTITUTIONAL: Denies fever or chills. HEENT: Denies blurred vision, vision changes, or eye pain. Denies hemoptysis CARDIOVASCULAR: Denies chest pain or pressure. RESPIRATORY: No shortness of breath. GASTROINTESTINAL: See HPI for pertinent findings HEMATOLOGIC: Denies bleeding disorders. GENITOURINARY: Denies any blood in urine or increased urinary frequency. SKIN: Denies pruitis. Denies rash. PHYSICAL EXAM: VITAL SIGNS: Reviewed GENERAL: Well-developed in no acute distress. ABDOMEN: Soft. Nondistended. Nontender NEUROLOGIC: Alert and oriented. Cranial nerves II through XII grossly intact. LABORATORY DATA: WBC 5.5 Hgb of 16.5 platelets 269 INR 1.1 D-dimer 0.49 Sodium 138 potassium is 3.9 creatinine 1.32 down to 0.88 Calcium 16.5 down to 11.2 Total bilirubin 0.8 AST 648 down to 407 ALT 514 down to 380 Alk phos 62 Lipase 247 Hepatitis panel negative IMAGING: Gallbladder ultrasound reports hepatic steatosis and biliary sludge with fundal adenomyomatosis Chest x-ray no acute cardiopulmonary process ASSESSMENT: 1. Chronic cholecystitis. Ultrasound revealing biliary sludge with fundal adenomyomatosis 2. Hepatic steatosis 3. Daily alcohol use 4. Elevated LFTs PLAN: -Patient scheduled for laparoscopic cholecystectomy tomorrow with Dr. Ventura -Start clear liquid diet -N.p.o. after midnight -Repeat LFTs in a.m. Physician Train Operations Supervisor note has been reviewed by physician. Signing provider agrees with the documented findings, assessment, and plan of care. Past Medical History Past Medical History: Hyperlipidemia, Hypertension, Osteoarthritis (OA) Additional Past Medical History / Comment(s): gout, past skull fracture (fell off bridge), tingling at times bilateral hands History of Any Multi-Drug Resistant Organisms: None Reported Past Surgical History: Orthopedic Surgery, Tonsillectomy Additional Past Surgical History / Comment(s): L foot plate/screws, rhinoplasty Past Anesthesia/Blood Transfusion Reactions: No Reported Reaction Past Psychological History: No Psychological Hx Reported Smoking Status: Current every day smoker Past Alcohol Use History: Abuse, Daily, Heavy Past Drug Use History: Marijuana - Past Family History Mother Family Medical History: Cancer Additional Family Medical History / Comment(s): Pt cannot recall type of cancer. Father Additional Family Medical History / Comment(s): ETOH Medications and Allergies Home Medications Medication Instructions Recorded Confirmed Type Atorvastatin [Lipitor] 20 mg PO HS 02/16/23 12/03/23 History allopurinoL 100 mg PO DAILY 02/16/23 12/03/23 History amLODIPine [Norvasc] 10 mg PO DAILY 02/16/23 12/03/23 History Calcium Carbonate [Tums] 1,000 mg PO TID PRN 12/03/23 12/03/23 History Allergies Allergy/AdvReac Type Severity Reaction Status Date / Time No Known Allergies Allergy Verified 12/03/23 14:45 Surgical - Exam Vital Signs Temp Pulse Resp BP Pulse Ox 98.4 F 70 22 100/75 99 12/03/23 14:41 12/03/23 14:41 12/03/23 14:41 12/03/23 14:41 12/03/23 14:41 Results - Labs 12/03/23 15:51 12/04/23 07:17 Abnormal Lab Results - Last 24 Hours (Table) 12/03/23 12/03/23 12/03/23 Range/Units 15:51 16:39 16:39 APTT 19.7 L (22.0-30.0) sec Sodium 136 L (137-145) mmol/L Chloride 94 L (98-107) mmol/L Carbon Dioxide 33 H (22-30) mmol/L BUN 23 H (9-20) mg/dL Creatinine 1.32 H (0.66-1.25) mg/dL Glucose 119 H (74-99) mg/dL Calcium 16.5 H* (8.4-10.2) mg/dL Ionized Calcium Lucho 8.0 H* (4.5-5.3) mg/dL Magnesium 1.5 L (1.6-2.3) mg/dL AST 648 H (17-59) U/L ALT 514 H (4-49) U/L Total Protein (6.3-8.2) g/dL PTH Intact (14.0-72.0) pg/mL Urine Protein (Negative) Urine Blood (Negative) Ur Leukocyte Esterase (Negative) Urine WBC (0-5) /hpf Triple Phos Crystals (None) /hpf Urine Bacteria (None) /hpf Hyaline Casts (0-2) /lpf Urine Mucus (None) /hpf 12/03/23 12/03/23 12/04/23 Range/Units 18:04 20:00 07:17 APTT (22.0-30.0) sec Sodium (137-145) mmol/L Chloride (98-107) mmol/L Carbon Dioxide 34 H (22-30) mmol/L BUN (9-20) mg/dL Creatinine (0.66-1.25) mg/dL Glucose 102 H (74-99) mg/dL Calcium 11.2 H (8.4-10.2) mg/dL Ionized Calcium Lucho (4.5-5.3) mg/dL Magnesium (1.6-2.3) mg/dL AST 407 H (17-59) U/L ALT 380 H (4-49) U/L Total Protein 6.1 L (6.3-8.2) g/dL PTH Intact 7.8 L (14.0-72.0) pg/mL Urine Protein 1+ H (Negative) Urine Blood Trace H (Negative) Ur Leukocyte Esterase Small H (Negative) Urine WBC 24 H (0-5) /hpf Triple Phos Crystals Occasional H (None) /hpf Urine Bacteria Rare H (None) /hpf Hyaline Casts 31 H (0-2) /lpf Urine Mucus Few H (None) /hpf Diabetes panel 12/03/23 12/04/23 Range/Units 15:51 07:17 Sodium 136 L 138 (137-145) mmol/L Potassium 4.2 3.9 (3.5-5.1) mmol/L Chloride 94 L 99 (98-107) mmol/L Carbon Dioxide 33 H 34 H (22-30) mmol/L BUN 23 H 16 (9-20) mg/dL Creatinine 1.32 H 0.88 (0.66-1.25) mg/dL Glucose 119 H 102 H (74-99) mg/dL Calcium 16.5 H* 11.2 H (8.4-10.2) mg/dL AST 648 H 407 H (17-59) U/L ALT 514 H 380 H (4-49) U/L Alkaline Phosphatase 79 62 (38-126) U/L Total Protein 7.7 6.1 L (6.3-8.2) g/dL Albumin 4.5 3.5 (3.5-5.0) g/dL Calcium panel 12/03/23 12/03/23 12/04/23 Range/Units 15:51 16:39 07:17 Calcium 16.5 H* 11.2 H (8.4-10.2) mg/dL Ionized Calcium Lucho 8.0 H* (4.5-5.3) mg/dL Phosphorus 3.2 (2.5-4.5) mg/dL Albumin 4.5 3.5 (3.5-5.0) g/dL Pituitary panel 12/03/23 12/04/23 Range/Units 15:51 07:17 Sodium 136 L 138 (137-145) mmol/L Potassium 4.2 3.9 (3.5-5.1) mmol/L Chloride 94 L 99 (98-107) mmol/L Carbon Dioxide 33 H 34 H (22-30) mmol/L BUN 23 H 16 (9-20) mg/dL Creatinine 1.32 H 0.88 (0.66-1.25) mg/dL Glucose 119 H 102 H (74-99) mg/dL Calcium 16.5 H* 11.2 H (8.4-10.2) mg/dL Adrenal panel 02/18/24 02/19/24 Range/Units 15:51 07:17 Sodium 136 L 138 (137-145) mmol/L Potassium 4.2 3.9 (3.5-5.1) mmol/L Chloride 94 L 99 (98-107) mmol/L Carbon Dioxide 33 H 34 H (22-30) mmol/L BUN 23 H 16 (9-20) mg/dL Creatinine 1.32 H 0.88 (0.66-1.25) mg/dL Glucose 119 H 102 H (74-99) mg/dL Calcium 16.5 H* 11.2 H (8.4-10.2) mg/dL Total Bilirubin 0.9 0.8 (0.2-1.3) mg/dL AST 648 H 407 H (17-59) U/L ALT 514 H 380 H (4-49) U/L Alkaline Phosphatase 79 62 (38-126) U/L Total Protein 7.7 6.1 L (6.3-8.2) g/dL Albumin 4.5 3.5 (3.5-5.0) g/dL
--- NOTE | 2023-12-04 11:54 | P.HPIM ---
History of Present Illness This 21 patient is a 33-year-old male, complains of nausea vomiting epigastric burning sensation and burning sensation in the chest has been going on for few days patient has been taking Tums Patient has been taking about 20 times a day which contains calcium. Patient found to be hypercalcemic with serum calcium of 16. Patient was given IV fluids with rapid improvement in calcium patient was given calcitonin as well. Patient is n.p.o. show patient is complaining of nausea vomiting. Patient has history of coronary artery disease in the past EKG showed lymphoproliferative changes no acute ST-T wave changes. Last inferior leads no abnormalities on EKG troponins were negative. REVIEW OF SYSTEMS: CONSTITUTIONAL: No fever, no malaise, no fatigue. HEENT: No recent visual problems or hearing problems. Denied any sore throat. CARDIOVASCULAR: No orthopnea, PND, no palpitations, no syncope. PULMONARY: No shortness of breath, no cough, no hemoptysis. GASTROINTESTINAL: As mentioned in HPI NEUROLOGICAL: No headaches, no weakness, no numbness. HEMATOLOGICAL: Denies any bleeding or petechiae. GENITOURINARY: Denies any burning micturition, frequency, or urgency. MUSCULOSKELETAL/RHEUMATOLOGICAL: Denies any joint pain, swelling, or any muscle pain. ENDOCRINE: Denies any polyuria or polydipsia. The rest of the 14-point review of systems is negative. PHYSICAL EXAMINATION: GENERAL: The patient is alert and oriented x3, not in any acute distress. Well developed, well nourished. HEENT: Pupils are round and equally reacting to light. EOMI. No scleral icterus. No conjunctival pallor. Normocephalic, atraumatic. No pharyngeal erythema. No thyromegaly. CARDIOVASCULAR: S1 and S2 present. No murmurs, rubs, or gallops. PULMONARY: Chest is clear to auscultation, no wheezing or crackles. ABDOMEN: Soft, nontender, nondistended, normoactive bowel sounds. No palpable organomegaly. MUSCULOSKELETAL: No joint swelling or deformity. EXTREMITIES: No cyanosis, clubbing, or pedal edema. NEUROLOGICAL: Gross neurological examination did not reveal any focal deficits. SKIN: No rashes. Assessment and plan -Hypercalcemia symptoms improved at this time continue with IV fluids today. Possibly discharge tomorrow -Nausea vomiting epigastric abdominal discomfort 1 sensation of the chest to secondary gastritis with no significant [place] more mild. hypercalcemia which is going to stay close nephrology evaluated the patient -Hypertension. Blood pressure is on the lower side because of return of abd ominal amlodipine dose was decreased -Hyperlipidemia -Obesity -Continue nicotine use: Counseling was provided DVT prophylaxis: Lovenox 50 mg subcutaneous Past Medical History Past Medical History: Hyperlipidemia, Hypertension, Osteoarthritis (OA) Additional Past Medical History / Comment(s): gout, past skull fracture (fell off bridge), tingling at times bilateral hands History of Any Multi-Drug Resistant Organisms: None Reported Past Surgical History: Orthopedic Surgery, Tonsillectomy Additional Past Surgical History / Comment(s): L foot plate/screws, rhinoplasty Past Anesthesia/Blood Transfusion Reactions: No Reported Reaction Past Psychological History: No Psychological Hx Reported Smoking Status: Current every day smoker Past Alcohol Use History: Abuse, Daily, Heavy Past Drug Use History: Marijuana - Past Family History Mother Family Medical History: Cancer Additional Family Medical History / Comment(s): Pt cannot recall type of cancer. Father Additional Family Medical History / Comment(s): ETOH Medications and Allergies Home Medications Medication Instructions Recorded Confirmed Type Atorvastatin [Lipitor] 20 mg PO HS 02/16/23 12/03/23 History allopurinoL 100 mg PO DAILY 02/16/23 12/03/23 History amLODIPine [Norvasc] 10 mg PO DAILY 02/16/23 12/03/23 History Calcium Carbonate [Tums] 1,000 mg PO TID PRN 12/03/23 12/03/23 History Allergies Allergy/AdvReac Type Severity Reaction Status Date / Time No Known Allergies Allergy Verified 12/03/23 14:45 Physical Exam Vitals: Vital Signs Temp Pulse Resp BP Pulse Ox 12/04/23 10:52 97.5 F L 67 18 101/73 97 12/04/23 08:47 98.4 F 78 18 112/77 96 12/04/23 04:17 76 18 112/77 98 12/04/23 02:10 66 18 125/89 97 12/04/23 00:00 68 12/03/23 22:11 144/102 12/03/23 22:05 74 12/03/23 20:20 76 20 140/101 97 12/03/23 15:41 79 20 138/105 97 02/18/24 14:41 98.4 F 70 22 100/75 99 Results CBC & Chem 7: 12/03/23 15:51 12/04/23 07:17 Labs: Abnormal Lab Results - Last 24 Hours (Table) 12/03/23 12/03/23 12/03/23 Range/Units 15:51 16:39 16:39 APTT 19.7 L (22.0-30.0) sec Sodium 136 L (137-145) mmol/L Chloride 94 L (98-107) mmol/L Carbon Dioxide 33 H (22-30) mmol/L BUN 23 H (9-20) mg/dL Creatinine 1.32 H (0.66-1.25) mg/dL Glucose 119 H (74-99) mg/dL Calcium 16.5 H* (8.4-10.2) mg/dL Ionized Calcium [place] 8.0 H* (4.5-5.3) mg/dL Magnesium 1.5 L (1.6-2.3) mg/dL AST 648 H (17-59) U/L ALT 514 H (4-49) U/L Total Protein (6.3-8.2) g/dL PTH Intact (14.0-72.0) pg/mL Urine Protein (Negative) Urine Blood (Negative) Ur Leukocyte Esterase (Negative) Urine WBC (0-5) /hpf Triple Phos Crystals (None) /hpf Urine Bacteria (None) /hpf Hyaline Casts (0-2) /lpf Urine Mucus (None) /hpf 12/03/23 12/03/23 12/04/23 Range/Units 18:04 20:00 07:17 APTT (22.0-30.0) sec Sodium (137-145) mmol/L Chloride (98-107) mmol/L Carbon Dioxide 34 H (22-30) mmol/L BUN (9-20) mg/dL Creatinine (0.66-1.25) mg/dL Glucose 102 H (74-99) mg/dL Calcium 11.2 H (8.4-10.2) mg/dL Ionized Calcium [place]ucho (4.5-5.3) mg/dL Magnesium (1.6-2.3) mg/dL AST 407 H (17-59) U/L ALT 380 H (4-49) U/L Total Protein 6.1 L (6.3-8.2) g/dL PTH Intact 7.8 L (14.0-72.0) pg/mL Urine Protein 1+ H (Negative) Urine Blood Trace H (Negative) Ur Leukocyte Esterase Small H (Negative) Urine WBC 24 H (0-5) /hpf Triple Phos Crystals Occasional H (None) /hpf Urine Bacteria Rare H (None) /hpf Hyaline Casts 31 H (0-2) /lpf Urine Mucus Few H (None) /hpf
[2023-12-04] MEDS: SODIUM CHLORIDE 0.9% 1,000 ML IV SCH (12:09)
--- NOTE | 2023-12-04 14:00 | P.NPCON ---
History of Present Illness - Reason for Consult acute renal failure - History of Present Illness Patient is a 63-year-old male who presented to the hospital due to upper abdominal pain. Patient was noted to have a serum calcium of 16.5 with serum creatinine at 1.3. Patient admits to having taken at least 10-20 Tums daily for the last week to 4 days for severe symptoms of heartburn and nausea. No previous history of kidney diseases Serum calcium improved to 11.2. Status post IV fluids. Good urine output. Review of Systems As per HPI Past Medical History Past Medical History: Hyperlipidemia, Hypertension, Osteoarthritis (OA) Additional Past Medical History / Comment(s): gout, past skull fracture (fell off bridge), tingling at times bilateral hands History of Any Multi-Drug Resistant Organisms: None Reported Past Surgical History: Orthopedic Surgery, Tonsillectomy Additional Past Surgical History / Comment(s): L foot plate/screws, rhinoplasty Past Anesthesia/Blood Transfusion Reactions: No Reported Reaction Past Psychological History: No Psychological Hx Reported Smoking Status: Current every day smoker Past Alcohol Use History: Abuse, Daily, Heavy Past Drug Use History: Marijuana - Past Family History Mother Family Medical History: Cancer Additional Family Medical History / Comment(s): Pt cannot recall type of cancer. Father Additional Family Medical History / Comment(s): ETOH Medications and Allergies Home Medications Medication Instructions Recorded Confirmed Type Atorvastatin [Lipitor] 20 mg PO HS 02/16/23 12/03/23 History allopurinoL 100 mg PO DAILY 02/16/23 12/03/23 History amLODIPine [Norvasc] 10 mg PO DAILY 02/16/23 12/03/23 History Calcium Carbonate [Tums] 1,000 mg PO TID PRN 12/03/23 12/03/23 History Allergies Allergy/AdvReac Type Severity Reaction Status Date / Time No Known Allergies Allergy Verified 12/03/23 14:45 Physical Exam Vitals: Vital Signs Temp Pulse Resp BP Pulse Ox 12/04/23 13:25 66 18 101/73 95 12/04/23 11:59 61 18 103/73 12/04/23 10:52 97.5 F L 67 18 101/73 97 12/04/23 08:47 98.4 F 78 18 112/77 96 12/04/23 04:17 76 18 112/77 98 02/19/24 02:10 66 18 125/89 97 12/04/23 00:00 68 12/03/23 22:11 144/102 12/03/23 22:05 74 12/03/23 20:20 76 20 140/101 97 12/03/23 15:41 79 20 138/105 97 12/03/23 14:41 98.4 F 70 22 100/75 99 Patient is awake, comfortable, no acute distress. Examination of the heart S1 and S2 Examination of the lungs bilateral breath sounds are heard Abdomen is soft nontender Examination of lower extremities shows no significant edema NURSE PRACTITIONER PHYSICIANS ASSISTANT exam grossly intact Results - Lab Results Most recent lab results Calcium 11.2 mg/dL (8.4-10.2) H 12/04/23 07:17 Phosphorus 3.2 mg/dL (2.5-4.5) 12/03/23 16:39 Magnesium 1.5 mg/dL (1.6-2.3) L 12/03/23 16:39 12/03/23 15:51 12/04/23 07:17 Assessment and Plan Assessment: 1. Acute kidney injury secondary to hypercalcemia, improved with IV hydration. UA shows 1+ protein and trace blood and hyaline casts 31 2. Hypercalcemia secondary to excessive intake of Tums, currently improving. Maintain IV hydration. PTH is appropriately low at 7.8 and vitamin D was 41.9. 3. Gastroesophageal reflux disease. Started on Protonix 4. Volume depletion maintained on IV fluids 5. Hypertension, currently controlled. Blood pressure is on the lower side. May need to hold Norvasc. Plan: Continue IV fluids Check urine immunofixation Repeat labs in a.m. Patient is advised to avoid any further use of Tums or calcium supplements. Next Thank you for the consultation. We will continue to follow the patient with you during his hospitalization.
[2023-12-04] MEDS: NICOTINE 14MG/24HR PATCH TRANSDERM SCH (18:16)
[2023-12-05 05:55] LABS: Basophils # (A) 0.1 k/uL (0-0.2); Basophils % (A) 1 %; Eosinophils # (A) 0.1 k/uL (0-0.7); Eosinophils % (A) 1 %; HCT 43.5 % (39.0-53.0); HGB 14.4 gm/dL (13.0-17.5); Lymphocytes # (A) 2.1 k/uL (1.0-4.8); Lymphocytes % (A) 32 %; MCH 33.4 pg (25.0-35.0); MCHC 33.2 g/dL (31.0-37.0); MCV 100.6 fL (80.0-100.0); Monocytes # (A) 0.6 k/uL (0-1.0); Monocytes % (A) 10 %; Neutrophils # (A) 3.4 k/uL (1.3-7.7); Neutrophils % (A) 54 %; Platelet Count 235 k/uL (150-450); RBC 4.32 m/uL (4.30-5.90); RDW 13.1 % (11.5-15.5); WBC 6.4 k/uL (3.8-10.6)
[2023-12-05 06:11] LABS: ALT 300 U/L (4-49); AST 279 U/L (17-59); African American GFR (CKD) >90 (>60 ml/min/1.73 sqM); Albumin 3.6 g/dL (3.5-5.0); Albumin/Globulin Ratio 1.4; Alkaline Phosphatase 66 U/L (38-126); Anion Gap 5 mmol/L; Blood Urea Nitrogen 10 mg/dL (9-20); Calcium 9.6 mg/dL (8.4-10.2); Carbon Dioxide 34 mmol/L (22-30); Chloride 98 mmol/L (98-107); Globulin 2.5 g/dL; Glucose 108 mg/dL (74-99); Non-African American GFR(CKD) >90 (>60 ml/min/1.73 sqM); Sodium 137 mmol/L (137-145); Total Bilirubin 0.8 mg/dL (0.2-1.3); Total Protein 6.1 g/dL (6.3-8.2)
[2023-12-05] MEDS: ENOXAPARIN 60 MG/0.6 ML SYRINGE SQ SCH (07:18)
[2023-12-05] MEDS ORDERED: LORazepam 2 MG/ML INJ IV PRN ×3 (09:43)
[2023-12-05] MEDS: amLODIPine 5 MG TAB PO SCH (10:17)
[2023-12-05] MEDS: THIAMINE 100 MG/ML 2 ML VIAL IM STA (11:44)
[2023-12-05] MEDS ORDERED: GLYCOPYRROLATE 0.2 MG/ML 2 ML VIAL ONE (12:52)
[2023-12-05] MEDS ORDERED: LIDOCAINE 1% INJ 10MG/ML (20 ML MDV) ONE (12:52)
[2023-12-05] MEDS ORDERED: MIDAZOLAM 2 MG/2 ML VIAL ONE (12:52)
[2023-12-05] MEDS ORDERED: NEOSTIGMINE 1 MG/ML 10 ML VIAL ONE (12:52)
[2023-12-05] MEDS ORDERED: SUGAMMADEX SODIUM 200 MG/2 ML SDV IV ONE (12:52)
[2023-12-05] MEDS ORDERED: fentaNYL (PF) 50 MCG/ML 2 ML AMP ONE (12:52)
[2023-12-05] MEDS ORDERED: SUCCINYLCHOLINE CHLORIDE 200 MG/10 ML VIAL IV ONE (12:52)
[2023-12-05] MEDS ORDERED: ROCURONIUM 10 MG/ML (5 ML VIAL) IV ONE (12:52)
[2023-12-05] MEDS ORDERED: PROPOFOL 10 MG/ML 20 ML VIAL IV ONE (12:52)
--- NOTE | 2023-12-05 13:54 | P.PN ---
Subjective Progress Note Date: 12/05/23 CHIEF COMPLAINT: Chronic cholecystitis HISTORY OF PRESENT ILLNESS: Patient denies pain at this time. Denies any nausea or vomiting. Afebrile. WBC 6.4 LFTs elevated but trending downwards PHYSICAL EXAM: VITAL SIGNS: Reviewed. GENERAL: Well-developed in no acute distress. ABDOMEN: Soft. Nondistended. Nontender. NEUROLOGIC: Alert and oriented. Cranial nerves II through XII grossly intact. ASSESSMENT: 1. Chronic cholecystitis. Ultrasound revealing biliary sludge with fundal adenomyomatosis 2. Hepatic steatosis 3. Daily alcohol use 4. Elevated LFTs PLAN: -Patient scheduled for laparoscopic cholecystectomy today with Dr. Ventura -Keep patient n.p.o. Physician Lead Caster Helper note has been reviewed by physician. Signing provider agrees with the documented findings, assessment, and plan of care. Objective - Vital Signs Vital signs: Vital Signs Temp 98.9 F 12/05/23 12:48 Pulse 68 12/05/23 12:48 Resp 18 12/05/23 12:48 BP 122/83 12/05/23 12:48 Pulse Ox 97 12/05/23 12:48 FiO2 Intake & Output 12/04/23 12/05/23 12/05/23 18:59 06:59 18:59 Intake Total 640 Output Total 3 Balance 637 Weight 99.79 kg Intake: Oral 640 Output: Urine 3 Other: Voiding Method Toilet Toilet Urinal Urinal - Labs CBC & Chem 7: 12/05/23 05:19 12/05/23 05:19 Labs: Abnormal Lab Results - Last 24 Hours (Table) 12/05/23 12/05/23 Range/Units 05:19 05:19 MCV 100.6 H (80.0-100.0) fL Carbon Dioxide 34 H (22-30) mmol/L Glucose 108 H (74-99) mg/dL AST 279 H (17-59) U/L ALT 300 H (4-49) U/L Total Protein 6.1 L (6.3-8.2) g/dL
[2023-12-05] MEDS: ONDANSETRON 4 MG/2 ML VIAL IVP PRN (17:08)
[2023-12-05] MEDS: IV FLUID CONTINUATION 1,000 ML IV ONE (17:09)
[2023-12-05] MEDS: HEPARIN SODIUM,PORCINE 5,000 UNIT/ML 1 ML VIAL SQ ONE (17:26)
[2023-12-05] MEDS: BUPIVACAINE (PF) 0.25% 30 ML VIAL SQ ONE (17:48)
--- NOTE | 2023-12-05 17:48 | P.PN ---
Subjective Patient is seen for follow-up for acute kidney injury and hypercalcemia. Calcium has improved to 9.6 today. Patient is scheduled for cholecystectomy in a.m. No significant complaints today. Objective - Vital Signs Vital signs: Vital Signs Temp 98.9 F 12/05/23 12:48 Pulse 75 12/05/23 17:01 Resp 16 12/05/23 17:01 BP 140/94 12/05/23 17:01 Pulse Ox 96 12/05/23 17:01 FiO2 Intake & Output 12/04/23 12/05/23 12/05/23 18:59 06:59 18:59 Intake Total 640 900 Output Total 3 Balance 637 900 Weight 99.79 kg Intake: Intake, IV Titration 900 Amount Sodium Chloride 0.9% 1, 900 000 ml @ 75 mls/hr IV . [id number] [facility] Rx#:[id number] Oral 640 Output: Urine 3 Other: Voiding Method Toilet Toilet Urinal Urinal # Voids 3 - Exam Patient is awake, comfortable, no acute distress Alert oriented x 3 Examination of the heart S1 and S2 Examination of the lungs bilateral breath sounds are heard Abdomen is soft nontender Examination of lower extremity shows no significant edema SUPERVISOR WET POUR exam grossly intact - Labs CBC & Chem 7: 12/05/23 05:19 12/05/23 05:19 Labs: Abnormal Lab Results - Last 24 Hours (Table) 12/05/23 12/05/23 Range/Units 05:19 05:19 MCV 100.6 H (80.0-100.0) fL Carbon Dioxide 34 H (22-30) mmol/L Glucose 108 H (74-99) mg/dL AST 279 H (17-59) U/L ALT 300 H (4-49) U/L Total Protein 6.1 L (6.3-8.2) g/dL Assessment and Plan Assessment: 1. Acute kidney injury secondary to hypercalcemia, improved with IV hydration. UA shows 1+ protein and trace blood and hyaline casts 31 2. Hypercalcemia secondary to excessive intake of Tums, currently improving. Maintain IV hydration. PTH is appropriately low at 7.8 and vitamin D was 41.9. 3. Gastroesophageal reflux disease. Started on Protonix 4. Volume depletion maintained on IV fluids 5. Hypertension, currently controlled. Blood pressure is on the lower side. May need to hold Norvasc. Plan: Continue IV fluids Repeat labs in a.m.
[2023-12-05] MEDS: LIDOCAINE 1%-EPI 1:100,000 50 ML VIAL SQ ONE ×2 (17:52→18:15)
--- NOTE | 2023-12-05 18:37 | P.OP ---
Date of Procedure: 12/05/23 Preoperative Diagnosis: Cholecystitis Cholelithiasis Postoperative Diagnosis: Cholecystitis Cholelithiasis Procedure(s) Performed: Laparoscopic cholecystectomy Anesthesia: RINKU Surgeon: Darien Ventura Estimated Blood Loss (ml): 5 Pathology: other (Gallbladder) Condition: stable Disposition: PACU Description of Procedure: The patient's placed on the operative table in the supine position. The patient received general endotracheal anesthesia. His abdomen was prepped with sterile fashion. An infraumbilical skin incision was made. The Veress needles positioned into the peritoneal cavity. Position of the Veress needle was confirmed with a positive drop test. The abdomen was then insufflated. After adequate insufflation a 5 mm trochars placed. Cavity. Next the laparoscope placed. Cavity. A 8 mm robotic trocar was placed in the left mid abdomen. A a 8 mm robotic trochars placed in the right lateral position and then the right mid abdomen position. The patient was then placed in reverse Trendelenburg. Patient with was docked to the robot. There were adhesions to the dome of the gallbladder. These were lysed using the hook cautery. The gallbladder fundus was then grasped with a pro-grasp grasper. And then the gallbladder was retracted cephalad. There were adhesions along the body of the gallbladder. These were lysed with sharp dissection. The fundus of the gallbladder was then grasped in the lateral traction was placed in the fundus. And then using blunt and sharp dissection the cystic duct was identified. Using firing applied the cystic duct was identified. A critical view of safety was achieved. The cystic duct was seen entering the common bile duct the common hepatic duct was seen. The cystic duct had been completely dissected and then the cystic duct was clipped and divided. The cystic artery was then identified and then clipped and divided. The gallbladder was then removed from liver bed using left cautery. The gallbladder was placed in a 5 mm Endo Catch bag. The liver bed was hemostasis. There is no bleeding seen. The abdomen was irrigated. No bleeding was seen. The patient was then undocked from the robot. The gallbladder was extracted through the umbilical port site. The umbilical port site was then closed with 0 Ethibond suture. The trochars withdrawn. Skin was closed interrupted 3-0 Monocryl suture. Dermabond dressing applied. Patient top she will was sent to recovery room in stable condition.
[2023-12-05] MEDS: ONDANSETRON 4 MG/2 ML VIAL IVP ONE (19:49)
[2023-12-05] MEDS: SODIUM CHLORIDE 0.9% 1,000 ML IV ONE (19:50)
[2023-12-05 20:24] VITALS: RESP 16
--- NOTE | 2023-12-05 21:05 | P.PN ---
Subjective Progress Note Date: 12/05/23 This 21 patient is a 33-year-old male, complains of nausea vomiting epigastric burning sensation and burning sensation in the chest has been going on for few days patient has been taking Tums Patient has been taking about 20 times a day which contains calcium. Patient found to be hypercalcemic with serum calcium of 16. Patient was given IV fluids with rapid improvement in calcium patient was given calcitonin as well. Patient is n.p.o. show patient is complaining of nausea vomiting. Patient has history of coronary artery disease in the past EKG showed lymphoproliferative changes no acute ST-T wave changes. Last inferior leads no abnormalities on EKG troponins were negative. 12/05/2023 Patients calcium level has normalized. Reports improvement in abdominal pain. Was found to have chronic cholecystits with biliary sludge of imaging and general surgery recommending laproscopic cholecystectomy planned for later on today. Patient does report drinking daily states his last drink was monday. He feels he is outside of the withdrawal window however CIWA ativan protocol will be added. Patient reports having increased shortness of breath lately. Hepatitis panel negative, LFTs remain elevated. Review of Systems Constitutional: Denied any fatigue denied any fever. Cardio vascular: denied any chest pain, palpitations Gastrointestinal: denied any nausea, vomiting, diarrhea Pulmonary: Denied any shortness of breath cough Neurologic denied any new focal deficits All inpatient medications were reviewed and appropriate changes in these medications as dictated in the interval history and assessment and plan. PHYSICAL EXAMINATION: GENERAL: The patient is alert and oriented x3, not in any acute distress. Well developed, well nourished. HEENT: Pupils are round and equally reacting to light. EOMI. No scleral icterus. No conjunctival pallor. Normocephalic, atraumatic. No pharyngeal erythema. No thyromegaly. CARDIOVASCULAR: S1 and S2 present. No murmurs, rubs, or gallops. PULMONARY: Chest is clear to auscultation, no wheezing or crackles. ABDOMEN: Soft, nontender, nondistended, normoactive bowel sounds. No palpable organomegaly. MUSCULOSKELETAL: No joint swelling or deformity. EXTREMITIES: No cyanosis, clubbing, or pedal edema. NEUROLOGICAL: Gross neurological examination did not reveal any focal deficits. SKIN: No rashes. Assessment and plan -Hypercalcemia symptoms improved at this time continue with IV fluids, hypercalcemia secondary to excessive ingestion of calcium carbonate. -Nausea vomiting epigastric abdominal discomfort possible gastritis, gallbladder US reveals biliary sludge and suggestive of chronic cholecystitis, general surgery recommending laproscopic cholecystecomy patient will undergo today. -Hypertension. Initially low amlodipine was decreased, BP is increasing and will follow up tomorrow may need to have dose of amlodipine increased. -Hyperlipidemia -Obesity -Continue nicotine use: Counseling was provided DVT prophylaxis: Lovenox 50 mg subcutaneous GI prophylaxis: Protonix Full Code The impression and plan of care has been dictated by Virginia Barron, Nurse Practitioner as directed. Dr. Madhu MD I have performed a history and physical examination and medical decision making of this patient, discussed the same with the dictator, and agree with the dictators assessment and plan as written, documented as a scribe. Based on total visit time, I have performed more than 50% of this visit. Objective - Vital Signs Vital signs: Vital Signs Temp 97.8 F 12/05/23 20:00 Pulse 74 12/05/23 20:00 Resp 16 12/05/23 20:00 BP 135/91 12/05/23 20:00 Pulse Ox 97 12/05/23 20:00 FiO2 Intake & Output 12/05/23 12/05/23 12/06/23 06:59 18:59 06:59 Intake Total 640 1950 Output Total 3 5 Balance 637 1945 Intake: IV 1050 Intake, IV Titration 900 Amount Sodium Chloride 0.9% 1, 900 000 ml @ 75 mls/hr IV . [id number] [facility] Rx#:[id number] Oral 640 Output: Urine 3 Estimated Blood Loss 5 Other: Voiding Method Toilet Toilet Urinal Urinal # Voids 3 - Labs CBC & Chem 7: 12/05/23 05:19 12/05/23 05:19 Labs: Abnormal Lab Results - Last 24 Hours (Table) 12/05/23 12/05/23 Range/Units 05:19 05:19 MCV 100.6 H (80.0-100.0) fL Carbon Dioxide 34 H (22-30) mmol/L Glucose 108 H (74-99) mg/dL AST 279 H (17-59) U/L ALT 300 H (4-49) U/L Total Protein 6.1 L (6.3-8.2) g/dL
[2023-12-05] MEDS: HYDROmorphone 1 MG/ML 1 ML SYRINGE IVP PRN (23:17)
[2023-12-06] MEDS: MULTIVITAMINS, THERA 1 EACH TAB PO SCH (10:17)
[2023-12-06] MEDS: THIAMINE 100 MG TAB PO SCH (10:17)
[2023-12-06] MEDS: FOLIC ACID 1 MG TAB PO SCH (10:17)
[2023-12-06] MEDS: HYDROcodone/APAP 5-325MG 1 EACH TAB PO PRN (11:11)
[2023-12-06 12:37] VITALS: BP 120/82; PULSE 71; TEMP 98.3
[2023-12-06 14:08] LABS: ALT 252 U/L (10-49); AST 233 U/L (14-35); Albumin 3.4 g/dL (3.8-4.9); Albumin/Globulin Ratio 1.62 Ratio (1.60-3.17); Alkaline Phosphatase 79 U/L (41-126); BUN/Creat Ratio 7.75 Ratio (12.00-20.00); Blood Urea Nitrogen 6.2 mg/dL (9.0-27.0); Calcium 7.8 mg/dL (8.7-10.3); Carbon Dioxide 22.8 mmol/L (21.6-31.8); Chloride 103 mmol/L (96-109); Globulin 2.1 g/dL (1.6-3.3); Glucose 110 mg/dL (70-110); Potassium 3.8 mmol/L (3.5-5.5); Sodium 139 mmol/L (135-145); Total Bilirubin 0.5 mg/dL (0.3-1.2); Total Protein 5.5 g/dL (6.2-8.2)
--- NOTE | 2023-12-06 14:38 | P.PN ---
Subjective Progress Note Date: 12/06/23 CHIEF COMPLAINT: cholecystitis HISTORY OF PRESENT ILLNESS: Postop day 1 status post laparoscopic cholecy stectomy. Patient reports his pain is controlled. Tolerated diet. He has been up and ambulating. Denies any difficulty urinating. No flatus. Afebrile. LFTs elevated but trending down PHYSICAL EXAM: VITAL SIGNS: Reviewed. GENERAL: Well-developed in no acute distress. ABDOMEN: Soft. Nondistended. Nontender. NEUROLOGIC: Alert and oriented. Cranial nerves II through XII grossly intact. ASSESSMENT: 1. cholecystitis status post laparoscopic cholecystectomy 2. Hepatic steatosis 3. Daily alcohol use 4. Elevated LFTs PLAN: -Patient can be discharged from surgical standpoint -Commend alcohol abstinence Physician Molding Process Technician note has been reviewed by physician. Signing provider agrees with the documented findings, assessment, and plan of care. Objective - Vital Signs Vital signs: Vital Signs Temp 98.3 F 12/06/23 12:02 Pulse 71 12/06/23 12:02 Resp 16 12/06/23 12:02 BP 120/82 12/06/23 12:02 Pulse Ox 94 L 12/06/23 12:02 FiO2 Intake & Output 12/05/23 12/06/23 12/06/23 18:59 06:59 18:59 Intake Total 1950 400 Output Total 5 Balance 1945 400 Intake: IV 1050 Intake, IV Titration 900 Amount Sodium Chloride 0.9% 1, 900 000 ml @ 75 mls/hr IV . [id number] [facility] Rx#:[id number] Oral 400 Output: Estimated Blood Loss 5 Other: Voiding Method Toilet Urinal Toilet Urinal Urinal # Voids 3 3 - Labs CBC & Chem 7: 12/05/23 05:19 12/06/23 07:00 Labs: Abnormal Lab Results - Last 24 Hours (Table) 12/06/23 Range/Units 07:00 Anion Gap 13.20 H (4.00-12.00) mmol/L BUN 6.2 L (9.0-27.0) mg/dL BUN/Creatinine Ratio 7.75 L (12.00-20.00) Ratio Calcium 7.8 L (8.7-10.3) mg/dL AST 233 H (14-35) U/L ALT 252 H (10-49) U/L Total Protein 5.5 L (6.2-8.2) g/dL Albumin 3.4 L (3.8-4.9) g/dL
--- NOTE | 2023-12-06 17:43 | P.PN ---
Subjective Patient is seen for follow-up for acute kidney injury and hypercalcemia. Calcium has decreased to 7.8 today. Status post cholecystectomy on 12/05/2023 No significant complaints today. Objective - Vital Signs Vital signs: Vital Signs Temp 98.3 F 12/06/23 12:02 Pulse 71 12/06/23 12:02 Resp 16 12/06/23 12:02 BP 120/82 12/06/23 12:02 Pulse Ox 94 L 12/06/23 12:02 FiO2 Intake & Output 12/05/23 12/06/23 12/06/23 18:59 06:59 18:59 Intake Total 1950 400 Output Total 5 Balance 1945 400 Intake: IV 1050 Intake, IV Titration 900 Amount Sodium Chloride 0.9% 1, 900 000 ml @ 75 mls/hr IV . [id number] [facility] Rx#:[id number] Oral 400 Output: Estimated Blood Loss 5 Other: Voiding Method Toilet Urinal Toilet Urinal Urinal # Voids 3 3 - Exam Patient is awake, comfortable, no acute distress Alert oriented x 3 Examination of the heart S1 and S2 Examination of the lungs bilateral breath sounds are heard Abdomen is soft nontender Examination of lower extremity shows no significant edema OFFICE CORRESPONDENT exam grossly intact - Labs CBC & Chem 7: 12/05/23 05:19 12/06/23 07:00 Labs: Abnormal Lab Results - Last 24 Hours (Table) 12/06/23 Range/Units 07:00 Anion Gap 13.20 H (4.00-12.00) mmol/L BUN 6.2 L (9.0-27.0) mg/dL BUN/Creatinine Ratio 7.75 L (12.00-20.00) Ratio Calcium 7.8 L (8.7-10.3) mg/dL AST 233 H (14-35) U/L ALT 252 H (10-49) U/L Total Protein 5.5 L (6.2-8.2) g/dL Albumin 3.4 L (3.8-4.9) g/dL Assessment and Plan Assessment: 1. Acute kidney injury secondary to hypercalcemia, improved with IV hydration. UA shows 1+ protein and trace blood and hyaline casts 31 2. Hypercalcemia secondary to excessive intake of Tums, currently improving. Maintain IV hydration. PTH is appropriately low at 7.8 and vitamin D was 41.9. 3. Gastroesophageal reflux disease. Started on Protonix 4. Volume depletion maintained on IV fluids 5. Hypertension, currently controlled. Blood pressure is on the lower side. May need to hold Norvasc. Plan: DC IV fluids if tolerating oral intake. Patient is advised to avoid any further use of Tums.
== END 2023-12-06 17:16 | disposition home or self-care (01) | DRG 263 ==
LOC: EC 14:29 → 5NMEDONC 18:04 → 4SSUR 23:26 → 5NMEDONC 12-04 00:14
PROVIDERS: ADMIT Hospitalist; ATTEND Hospitalist
PROC: 0FT44ZZ Resection of Gallbladder, Percutaneous Endoscopic Approach (ICD-10-PCS; principal; 2023-12-05 07:30)
DX: K80.10 Calculus of gallbladder with chronic cholecystitis without obstruction (principal); T47.1X1A Poisoning by other antacids and anti-gastric-secretion drugs, accidental (unintentional), initial encounter; E83.52 Hypercalcemia; N17.9 Acute kidney failure, unspecified; K21.9 Gastro-esophageal reflux disease without esophagitis; E86.9 Volume depletion, unspecified; I10 Essential (primary) hypertension; Z28.310 Unvaccinated for COVID-19; M10.9 Gout, unspecified; Z71.6 Tobacco abuse counseling; F17.210 Nicotine dependence, cigarettes, uncomplicated; K76.0 Fatty (change of) liver, not elsewhere classified; F10.10 Alcohol abuse, uncomplicated; Z28.21 Immunization not carried out because of patient refusal; E66.9 Obesity, unspecified; Z68.31 Body mass index [BMI] 31.0-31.9, adult; E78.5 Hyperlipidemia, unspecified; F17.200 Nicotine dependence, unspecified, uncomplicated; Z79.899 Other long term (current) drug therapy
CPT/HCPCS: 36415; 71046; 76705; 80053; 80074; 81001; 82150; 82306; 82330; 83605; 83690; 83735; 83970; 84100; 84484; 85025; 85379; 85610; 85730; 86308; 88304; 93005; 96361; 96372; 96374; 96376; 99285

== ENCOUNTER 2024-03-04 11:28 | Inpatient (IN) | payer OTHER ==
--- NOTE | 2024-03-04 11:58 | ED ---
General Adult HPI - General Chief complaint: Fall Stated complaint: Seizure Time Seen by Provider: 03/04/24 11:30 Source: patient, EMS, RN notes reviewed, old records reviewed Mode of arrival: EMS Limitations: altered mental status - History of Present Illness Initial comments: Patient approximately 59 years of age presenting with altered level of consc iousness, suspected seizure. Patient was witnessed by bystanders, became unsteady and fallen with head injury. He there was the possibility of seizure activity although this was not witnessed by paramedics. Patient was obtunded with rapid respirations, tachycardia. It was felt that the patient may have had some focal weakness on the right which was resolved prior to arrival. There is a history of alcohol abuse according to paramedics. Patient is unable to contribute to the history initially. - Related Data Home Medications Medication Instructions Recorded Confirmed No Known Home Medications 03/04/24 03/04/24 Allergies Allergy/AdvReac Type Severity Reaction Status Date / Time No Known Allergies Allergy Verified 03/04/24 14:36 Review of Systems ROS Statement: Those systems with pertinent positive or pertinent negative responses have been documented in the HPI. ROS Other: All systems not noted in ROS Statement are negative. Past Medical History Past Medical History: Unable to Obtain History of Any Multi-Drug Resistant Organisms: None Reported Past Surgical History: Unable to Obtain Past Psychological History: No Psychological Hx Reported Past Alcohol Use History: Abuse Past Drug Use History: Unable to Obtain - Past Family History Mother Family Medical History: Cancer Additional Family Medical History / Comment(s): Pt cannot recall type of cancer. Father Additional Family Medical History / Comment(s): ETOH General Exam Limitations: altered mental status General appearance: obtunded, in distress Head exam: Present: other (Superficial laceration above the right eye) Eye exam: Present: PERRL, EOMI Neck exam: Present: other (C-collar placed by paramedics) Respiratory exam: Present: other (kussmual respiration tachypnea with large volume) Cardiovascular Exam: Present: normal rhythm, tachycardia GI/Abdominal exam: Present: soft. Absent: distended, tenderness, guarding Extremities exam: Present: normal inspection, normal capillary refill Neurological exam: Present: motor sensory deficit (Patient is withdrawing to pain symmetrically, he is able to hold his arms in the air, no specific focal findings). Absent: oriented X3 Skin exam: Present: warm Course Vital Signs 05/20/24 05/20/24 11:32 13:56 Temperature 98.0 F 98.2 F Pulse Rate 141 H 117 H Respiratory 40 H 12 Rate Blood Pressure 104/58 77/44 O2 Sat by Pulse 98 93 L Oximetry Medical Decision Making - Medical Decision Making Was pt. sent in by a medical professional or institution (, [facility], BUSINESS ANALYSIS CONSULTANT, urgent care, hospital, or long-term...) When possible be specific @ -No Did you speak to anyone other than the patient for history (EMS, parent, family, police, friend...)? What history was obtained from this source @ -No Did you review nursing and triage notes (agree or disagree)? Why? @ -I reviewed and agree with nursing and triage notes Were old charts reviewed (outside hosp., previous admission, EMS record, old EKG, old radiological studies, urgent care reports/EKG's, long-term records)? Report findings @ -No old charts were reviewed Differential Seizure: Recurrent seizure disorder, febrile seizure, alcohol withdrawal, stimulants, meningitis, encephalitis, intercranial hemorrhage, intracranial tumor, stroke, eclampsia, thyrotoxicosis, hypocalcemia, hyponatremia, hypernatremia, hypomagnesemia, psychogenic, this is not meant to be an all-inclusive list. EKG interpreted by me (3pts min.). @Narrow complex rhythm, sinus tach versus atrial flutter rate of 141, QRS duration 98, QTc 386, no ST segment elevation. X-rays interpreted by me (1pt min.). @ -None done CT interpreted by me (1pt min.). @ -[CT head and cervical spine negative for acute intracranial pathology, no cervical fracture or subluxation. U/S interpreted by me (1pt. min.). @ -None done What testing was considered but not performed or refused? (CT, X-rays, U/S, labs)? Why? @ -None What meds were considered but not given or refused? Why? @ -None Did you discuss the management of the patient with other professionals (professionals i.e. [facility] Bee, BUSINESS ANALYSIS CONSULTANT, lab, RT, psych nurse, hospice social worker, director enterprise sales, teacher, customs patrol officer, case management director)? Give summary @ -Dr. Reveles who will admit Was smoking cessation discussed for >3mins.? @ -No Was critical care preformed (if so, how long)? @ -yes 35 min Were there social determinants of health that impacted care today? How? (Homelessness, low income, unemployed, alcoholism, drug addiction, transportation, low edu. Level, literacy, decrease access to med. care, senior living, rehab)? @ -No Was there de-escalation of care discussed even if they declined (Discuss DNR or withdrawal of care, Hospice)? DNR status @ -No What co-morbidities impacted this encounter? (DM, HTN, Smoking, COPD, CAD, Cancer, CVA, ARF, Chemo, Hep., AIDS, mental health diagnosis, sleep apnea, morbid obesity)? @ -alcohol abuse Was patient admitted / discharged? Hospital course, mention meds given and route, prescriptions, significant lab abnormalities, going to OR and other pertinent info. @63-year-old male presenting with altered mental status, suspected seizure. Patient regains normal level of consciousness after approximately 30 minutes. He has rapid respiratory rate suggestive of acidosis. His initial lactic is greater than 24 I suspect this is from prolonged seizure. Patient given 2 mg of Ativan, placed on IV fluids his laboratory tests normalize quickly after treatment. Patient will be observed with neurology on consult for suspected alcohol withdrawal seizure. Undiagnosed new problem with uncertain prognosis? @ -No Drug Therapy requiring intensive monitoring for toxicity (Heparin, Nitro, Insulin, Cardizem)? @ -No Were any procedures done? @ -No Diagnosis/symptom? @ -Seizure, alcohol abuse Acute, or Chronic, or Acute on Chronic? @ -[acute Uncomplicated (without systemic symptoms) or Complicated (systemic symptoms)? @ -Default Side effects of treatment? @ -No Exacerbation, Progression, or Severe Exacerbation? @ -No Poses a threat to life or bodily function? How? (Chest pain, [place], [place], pneumonia, PE, COPD, DKA, ARF, appy, cholecystitis, CVA, Diverticulitis, Homicidal, Suicidal, threat to staff... and all critical care pts) @ -[Yes, seizure, alcohol abuse, alcohol withdrawal - Lab Data Result diagrams: 03/04/24 11:59 03/04/24 14:39 Lab Results 03/04/24 03/04/24 03/04/24 Range/Units 11:59 11:59 11:59 WBC 10.8 H (3.8-10.6) k/uL RBC 5.00 (4.30-5.90) m/uL Hgb 16.5 (13.0-17.5) gm/dL Hct 56.4 H (39.0-53.0) % MCV 112.7 H (80.0-100.0) fL MCH 32.9 (25.0-35.0) pg MCHC 29.2 L (31.0-37.0) g/dL RDW 13.1 (11.5-15.5) % Plt Count 278 (150-450) k/uL MPV 9.5 Neutrophils % 40 % Lymphocytes % 52 % Monocytes % 4 % Eosinophils % 1 % Basophils % 1 % Neutrophils # 4.3 (1.3-7.7) k/uL Lymphocytes # 5.6 H (1.0-4.8) k/uL Monocytes # 0.4 (0-1.0) k/uL Eosinophils # 0.1 (0-0.7) k/uL Basophils # 0.1 (0-0.2) k/uL Manual Slide Review Performed Hypochromasia Marked Macrocytosis Marked A Sodium 141 (137-145) mmol/L Potassium 4.2 (3.5-5.1) mmol/L Chloride 97 L (98-107) mmol/L Carbon Dioxide <5 L* (22-30) mmol/L Anion Gap mmol/L BUN 10 (9-20) mg/dL Creatinine 1.38 H (0.66-1.25) mg/dL Est GFR (CKD-EPI)AfAm 62 (>60 ml/min/1.73 sqM) Est GFR (CKD-EPI)NonAf 54 (>60 ml/min/1.73 sqM) Glucose 233 H (74-99) mg/dL Lactic Ac Sepsis Rflx Plasma Lactic Acid Chau >24.0 H* (0.7-2.0) mmol/L Calcium 10.3 H (8.4-10.2) mg/dL Magnesium 1.6 (1.6-2.3) mg/dL Total Bilirubin 2.2 H (0.2-1.3) mg/dL AST 117 H (17-59) U/L ALT 106 H (4-49) U/L Alkaline Phosphatase 82 (38-126) U/L Total Protein 9.0 H (6.3-8.2) g/dL Albumin 5.5 H (3.5-5.0) g/dL Serum Alcohol 10 mg/dL 03/04/24 03/04/24 03/04/24 Range/Units 12:51 14:39 14:39 WBC (3.8-10.6) k/uL RBC (4.30-5.90) m/uL Hgb (13.0-17.5) gm/dL Hct (39.0-53.0) % MCV (80.0-100.0) fL MCH (25.0-35.0) pg MCHC (31.0-37.0) g/dL RDW (11.5-15.5) % Plt Count (150-450) k/uL MPV Neutrophils % % Lymphocytes % % Monocytes % % Eosinophils % % Basophils % % Neutrophils # (1.3-7.7) k/uL Lymphocytes # (1.0-4.8) k/uL Monocytes # (0-1.0) k/uL Eosinophils # (0-0.7) k/uL Basophils # (0-0.2) k/uL Manual Slide Review Hypochromasia Macrocytosis Sodium 134 L (137-145) mmol/L Potassium 3.8 (3.5-5.1) mmol/L Chloride 104 (98-107) mmol/L Carbon Dioxide 20 L (22-30) mmol/L Anion Gap 10 mmol/L BUN 15 (9-20) mg/dL Creatinine 1.49 H (0.66-1.25) mg/dL Est GFR (CKD-EPI)AfAm 57 (>60 ml/min/1.73 sqM) Est GFR (CKD-EPI)NonAf 49 (>60 ml/min/1.73 sqM) Glucose 163 H (74-99) mg/dL Lactic Ac Sepsis Rflx Y Plasma Lactic Acid Chau 3.9 H* (0.7-2.0) mmol/L Calcium 8.3 L (8.4-10.2) mg/dL Magnesium (1.6-2.3) mg/dL Total Bilirubin (0.2-1.3) mg/dL AST (17-59) U/L ALT (4-49) U/L Alkaline Phosphatase (38-126) U/L Total Protein (6.3-8.2) g/dL Albumin (3.5-5.0) g/dL Serum Alcohol mg/dL Critical Care Time Critical Care Time: Yes Total Critical Care Time: 35 Disposition Clinical Impression: Alcohol withdrawal, Seizure Disposition: ADMITTED IP TO THIS HOSP Condition: Stable Is patient prescribed a controlled substance at d/c from ED?: No Referrals: None,Stated [REFERRING] - 1-2 days Time of Disposition: 14:20
[2024-03-04] MEDS: SODIUM CHLORIDE 0.9% 1,000 ML IV STA ×2 (12:06→16:11)
[2024-03-04 12:25] LABS: ALT 106 U/L (4-49); AST 117 U/L (17-59); African American GFR (CKD) 62 (>60 ml/min/1.73 sqM); Albumin 5.5 g/dL (3.5-5.0); Alcohol 10 mg/dL; Alkaline Phosphatase 82 U/L (38-126); Basophils # (A) 0.1 k/uL (0-0.2); Basophils % (A) 1 %; Blood Urea Nitrogen 10 mg/dL (9-20); Calcium 10.3 mg/dL (8.4-10.2); Chloride 97 mmol/L (98-107); Eosinophils # (A) 0.1 k/uL (0-0.7); Eosinophils % (A) 1 %; Glucose 233 mg/dL (74-99); HGB 16.5 gm/dL (13.0-17.5); Hypochromasia Marked; Lymphocytes # (A) 5.6 k/uL (1.0-4.8); Lymphocytes % (A) 52 %; MCH 32.9 pg (25.0-35.0); MCHC 29.2 g/dL (31.0-37.0); MCV 112.7 fL (80.0-100.0); Macrocytosis Marked; Magnesium 1.6 mg/dL (1.6-2.3); Mean Platelet Volume 9.5; Monocytes # (A) 0.4 k/uL (0-1.0); Monocytes % (A) 4 %; Neutrophils # (A) 4.3 k/uL (1.3-7.7); Neutrophils % (A) 40 %; Non-African American GFR(CKD) 54 (>60 ml/min/1.73 sqM); Platelet Count 278 k/uL (150-450); Potassium 4.2 mmol/L (3.5-5.1); RDW 13.1 % (11.5-15.5); Sodium 141 mmol/L (137-145); Total Bilirubin 2.2 mg/dL (0.2-1.3); WBC 10.8 k/uL (3.8-10.6)
[2024-03-04 12:26] LABS: HCT 56.4 % (39.0-53.0)
--- NOTE | 2024-03-04 12:36 | CT ---
EXAMINATION TYPE: CT brain cspine wo con CT DLP: 1660.7 mGycm, Automated exposure control for dose reduction was used. DATE OF EXAM: 03/04/2024 12:10 PM COMPARISON: None. CLINICAL INDICATION:Male, 63 years old with history of fall/seizure; seizure/fall TECHNIQUE: Brain: Multiple axial CT images of the brain were obtained without IV contrast. Cspine: Axial CT images from the skull base to the inferior aspect of T2 we obtained without intraven ous contrast. Coronal and sagittal reformatted images were also reviewed. FINDINGS: Brain: Extra-axial spaces: No abnormal extra-axial fluid collections. Ventricular system: Dilatation in proportion to cerebral atrophy. Cerebral parenchyma: Cerebral atrophy. No acute intraparenchymal hemorrhage or mass effect. The liu -white junction is well differentiated. Scattered hypoattenuating areas are seen within the white mat ter. Cerebellum: Unremarkable. Mass effect: No evidence of midline shift. Intracranial vasculature: Atherosclerotic calcifications of the intracranial vessels. Soft tissues: Normal. Calvarium/osseous structures: No depressed skull fracture. Paranasal sinuses and mastoid air cells: Clear. Visualized orbits: Orbital contents are intact. Cervical spine: Fracture: None. Osseous structures: Multilevel degenerative disc disease changes with endplate spurring and disc oste ophyte complex's. Vertebral alignment: Within normal limits. Spinal canal/Neural Foramina: No evidence of significant spinal canal narrowing. No evidence for sign ificant neural foraminal stenosis. Neck soft tissues: Prevertebral soft tissues are within normal limits. Other: The airway is patent. The lung apices are clear. IMPRESSION: 1. No acute intracranial process. 2. Nonspecific white matter changes, likely secondary to chronic small vessel ischemic disease. 3. No evidence of cervical spine fracture. 4. Mild multilevel degenerative disc disease.
[2024-03-04 12:51] LABS: Carbon Dioxide <5 mmol/L (22-30)
[2024-03-04] MEDS: SODIUM CHLORIDE 0.9% 1,000 ML IV ONE (13:25)
[2024-03-04] MEDS: LORazepam 2 MG/ML INJ IV STA (13:25)
[2024-03-04] MEDS ORDERED: LORazepam 2 MG/ML INJ IV PRN ×2 (13:28)
[2024-03-04] MEDS ORDERED: DEXTROSE 50% SYRINGE 50 ML IVP PRN ×2 (14:38)
[2024-03-04 15:06] LABS: African American GFR (CKD) 57 (>60 ml/min/1.73 sqM); Anion Gap 10 mmol/L; Blood Urea Nitrogen 15 mg/dL (9-20); Calcium 8.3 mg/dL (8.4-10.2); Carbon Dioxide 20 mmol/L (22-30); Chloride 104 mmol/L (98-107); Glucose 163 mg/dL (74-99); Non-African American GFR(CKD) 49 (>60 ml/min/1.73 sqM); Sodium 134 mmol/L (137-145)
[2024-03-04 15:10] LABS: Potassium 3.8 mmol/L (3.5-5.1)
[2024-03-04] MEDS ORDERED: NALOXONE 0.4 MG/ML 1 ML VIAL IV PRN (15:15)
[2024-03-04] MEDS: MAGNESIUM SULFATE-D5W PMX 1 GM in DEXTROSE/WATER 1 100ML.BAG IVPB ONE (16:37)
[2024-03-04] MEDS: SODIUM CHLORIDE 0.9% 1,000 ML IV SCH (16:37)
[2024-03-04] MEDS: THIAMINE 100 MG/ML 2 ML VIAL IM STA (16:39)
[2024-03-04] MEDS: HEPARIN SODIUM,PORCINE 5,000 UNIT/ML 1 ML VIAL SQ SCH (16:42)
[2024-03-04 16:46] LABS: Glucose,Whole Blood 109 mg/dL (70-110)
[2024-03-04] MEDS: INSULIN ASPART (NovoLOG) 100 UNIT/ML VIAL SQ SCH (16:47)
[2024-03-04] MEDS: levETIRAcetam IV 500 MG/5 ML VIAL IVP STA (17:50)
[2024-03-04 18:07] LABS: Lactic Acid, Venous 1.2 mmol/L (0.7-2.0)
[2024-03-04 19:43] LABS: Appearance,Urine Cloudy (Clear); Bacteria,Urine Rare /hpf; Bilirubin,Urine Negative (Negative); Blood,Urine Small (Negative); Color,Urine Light Yellow; Glucose,Urine (UA) Trace (Negative); Hyaline Casts,Urine 7 /lpf (0-2); Ketones,Urine Negative (Negative); Leukocyte Esterase,Urine Negative (Negative); Mucus,Urine Occasional /hpf; Nitrite,Urine Negative (Negative); PH, Urine 6.5 (5.0-8.0); Protein,Urine 1+ (Negative); RBC,Urine 2 /hpf (0-5); Urobilinogen,Urine <2.0 mg/dL (<2.0); WBC,Urine 5 /hpf (0-5)
[2024-03-04 19:50] LABS: Amphetamine Screen,Urine Not Detected (NotDetected); Barbiturate Screen,Urine Not Detected (NotDetected); Benzodiazepines Screen,Urine Detected (NotDetected); Cocaine Screen,Urine Not Detected (NotDetected); Methadone Screen, Urine Not Detected (NotDetected); Opiate Screen,Urine Not Detected (NotDetected); Oxycodone Screen, Urine Not Detected (NotDetected); Phencyclidine Screen,Urine Not Detected (NotDetected); Tricyclic Antidepressant,Urine Not Detected (NotDetected); Urn Cannabinoid Scrn Not Detected (NotDetected)
[2024-03-04 22:18] LABS: Glucose,Whole Blood 97 mg/dL (70-110)
[2024-03-04] MEDS: LORazepam 2 MG/ML INJ IV PRN (22:20)
[2024-03-04] MEDS: levETIRAcetam IV 500 MG/5 ML VIAL IVP SCH (22:22)
--- NOTE | 2024-03-05 00:32 | P.HPIM ---
History of Present Illness H&P Date: 03/04/24 Chief Complaint: Fall and altered mental status Patient is a 63-year-old male with a past medical history of alcohol abuse presents to ER due to altered mental status. Patient states that she was at home and became unsteady while he was was going inside and suddenly fell on the side and had a laceration on the right eyebrow. Patient was witnessed by history bystanders. Patient was also had having altered consciousness and suspected seizures. EMS was called and patient was brought to ER. Patient was obtunded with rapid respirations and tachycardia. Patient otherwise does not drink about 1 to 2 pint a day. Patient became more conscious and back to his baseline while in the ER. Denies any recent illnesses. No complaints of chest pain or shortness of breath. Denies any focal weakness. No leg swelling. CT head and cervical spine showed no evidence of intracranial acute process. Nonspecific white matter changes likely secondary to chronic small ischemic di sease. No evidence of cervical spine fracture. Mild multilevel degenerative disc disease. EKG showed atrial flutter/tachycardia with rapid ventricular response. Laboratory data showed WBC 10.8 hemoglobin 16.5 and MCV 112.7 and platelets 278 Sodium 141 potassium 4.2 chloride 97 bicarb is less than 5 BUN 10 and creatinine 1.38 and blood sugar 233 Lactic acid greater than 24 calcium 10.3 and magnesium 1.6. Bili total bili 2.2 ALT 106 AST 117 and alk phos 106 and serum alcohol is 10. Review of Systems Constitutional: Patient denies any fever or chills . No generalized weakness or weight loss. Abdomen: Patient denied nausea vomiting and diarrhea and abdominal pain. Cardiovascular: Patient denies any chest pain or short of breath no palpitations. Respiratory: patient denied any cough is from production. No shortness of breath Neurologic: Patient denied any numbness or tingling headache. Musculoskeletal: Patient denies any complaints of joint swelling or deformity. Skin: Negative Psychiatric: Negative Endocrine: No heat or cold intolerance. No recent weight gain. Genitourinary: No dysuria or hematuria. All other 14 point ROS negative except the above Past Medical History Past Medical History: Unable to Obtain Additional Past Medical History / Comment(s): gout, past skull fracture (fell off bridge), tingling at times bilateral hands History of Any Multi-Drug Resistant Organisms: None Reported Past Surgical History: Unable to Obtain Additional Past Surgical History / Comment(s): L foot plate/screws, rhinoplasty Past Anesthesia/Blood Transfusion Reactions: No Reported Reaction Past Psychological History: No Psychological Hx Reported Past Alcohol Use History: Abuse Past Drug Use History: Unable to Obtain - Past Family History Mother Family Medical History: Cancer Additional Family Medical History / Comment(s): Pt cannot recall type of cancer. Father Additional Family Medical History / Comment(s): ETOH Medications and Allergies Home Medications Medication Instructions Recorded Confirmed Type No Known Home Medications 03/04/24 03/04/24 History Allergies Allergy/AdvReac Type Severity Reaction Status Date / Time No Known Allergies Allergy Verified 03/04/24 14:36 Physical Exam Vitals: Vital Signs Temp Pulse Resp BP Pulse Ox 03/04/24 13:56 98.2 F 117 H 12 77/44 93 L 03/04/24 11:32 98.0 F 141 H 40 H 104/58 98 Intake and Output 03/04/24 03/04/24 03/04/24 06:59 14:59 22:59 Other: Weight 81.647 kg PHYSICAL EXAMINATION: Patient is lying in the bed comfortably, no acute distress, awake alert and oriented.. HEENT: Normocephalic. Neck is supple. Pupils reactive. Nostrils clear. Oral c avity is moist. Neck reveals no JVD, carotid bruits, or thyromegaly. CHEST EXAMINATION: Trachea is central. Symmetrical expansion. Lung marcum clear to auscultation and percussion. CARDIAC: Normal S1, S2 with no gallops. No murmurs ABDOMEN: Soft. Bowel sounds normal. No organomegaly. No abdominal bruits. Extremities: reveal no edema. No clubbing or cyanosis Neurologically awake, alert, oriented x3 with well-coordinated movements. No focal deficits noted Skin: No rash or skin lesions. Psychiatric: Coperative. Nonsuicidal Musculoskeletal: No joint swelling or deformity. Normal range of motion. Results CBC & Chem 7: 03/04/24 11:59 03/04/24 14:39 Labs: Abnormal Lab Results - Last 24 Hours (Table) 03/04/24 03/04/24 03/04/24 Range/Units 11:59 11:59 11:59 WBC 10.8 H (3.8-10.6) k/uL Hct 56.4 H (39.0-53.0) % MCV 112.7 H (80.0-100.0) fL MCHC 29.2 L (31.0-37.0) g/dL Lymphocytes # 5.6 H (1.0-4.8) k/uL Macrocytosis Marked A Sodium (137-145) mmol/L Chloride 97 L (98-107) mmol/L Carbon Dioxide <5 L* (22-30) mmol/L Creatinine 1.38 H (0.66-1.25) mg/dL Glucose 233 H (74-99) mg/dL Plasma Lactic Acid Chau >24.0 H* (0.7-2.0) mmol/L Calcium 10.3 H (8.4-10.2) mg/dL Total Bilirubin 2.2 H (0.2-1.3) mg/dL AST 117 H (17-59) U/L ALT 106 H (4-49) U/L Total Protein 9.0 H (6.3-8.2) g/dL Albumin 5.5 H (3.5-5.0) g/dL 03/04/24 03/04/24 Range/Units 14:39 14:39 WBC (3.8-10.6) k/uL Hct (39.0-53.0) % MCV (80.0-100.0) fL MCHC (31.0-37.0) g/dL Lymphocytes # (1.0-4.8) k/uL Macrocytosis Sodium 134 L (137-145) mmol/L Chloride (98-107) mmol/L Carbon Dioxide 20 L (22-30) mmol/L Creatinine 1.49 H (0.66-1.25) mg/dL Glucose 163 H (74-99) mg/dL Plasma Lactic Acid Chau 3.9 H* (0.7-2.0) mmol/L Calcium 8.3 L (8.4-10.2) mg/dL Total Bilirubin (0.2-1.3) mg/dL AST (17-59) U/L ALT (4-49) U/L Total Protein (6.3-8.2) g/dL Albumin (3.5-5.0) g/dL Assessment and Plan Assessment: Altered mental status, unsteady gait and status post fall. Suspected seizures versus rule out arrhythmia Status post fall and laceration on the right eyebrow and back of the head. Severe lactic acidosis Acute kidney injury likely prerenal Hyperglycemia Elevated liver enzymes Hypomagnesemia replaced GI DVT prophylaxis Plan: Patient will be continued on telemetry monitoring. Continue with IV hydration and replace electrolytes. Patient's mentation is back to baseline. Follow-up repeat lactic acid level. Neurology was consulted for further evaluation of suspected seizures. Follow-up closely. Wanted to monitor for alcohol withdrawal symptoms. Repeat CBC and CMP. Prognosis is guarded. Time with Patient: Greater than 30
[2024-03-05 07:33] LABS: Glucose,Whole Blood 102 mg/dL (70-110)
[2024-03-05] MEDS: THIAMINE 100 MG TAB PO SCH (08:16)
[2024-03-05 11:43] LABS: Glucose,Whole Blood 94 mg/dL (70-110)
--- NOTE | 2024-03-05 12:07 | P.CNNES ---
History of Present Illness Consult date: 03/05/24 Requesting physician: Francesco Frederick Reason for Consult: seizure History of Present Illness: This is a 63-year-old gentleman with history of significant alcohol use who presents because of loss of consciousness that shaken and there is a suspicion for seizure. Patient states he drinks alcohol heavily about 5th a day a day and yesterday he was outside his apartment and it seems that he had shaking of the extremities and cannot control him and lost consciousness and hit the back of the head. He denies any tongue bite, urinary incontinence or bowel incontinence. He denies any history of seizures in the past. He states his last drink was this Monday. He states he was sober for some time in the past but again he relapsed again. Denies any history of stroke. Denies having any headaches right now. Denies of any focal weakness or numbness. Some of the workup during this hospital visit consisted of: Vitamin B12 is 506 Serum folate is 10.8 Ammonia level is 10. Creatinine is 1.49 Serum glucose 233 AST of 117 ALT of 107 Serum alcohol is less than 10 Urine drug screen is positive for benzos Initial plasma lactic acid vein is more than 20 4 repeat is 3.9 and the most recent has normalized. CT of the head and cervical spine is reported as no acute intracranial process. Nonspecific white matter changes, likely secondary due to chronic small vessel ischemic disease. No evidence of cervical spine fracture. Mild multilevel degenerative disc disease. Reviewed the CT of the head and agree with the r eport. Review of Systems Review of system: The 12 point system was reviewed and apparent positive and negative per HPI. Past Medical History Past Medical History: Unable to Obtain Additional Past Medical History / Comment(s): gout, past skull fracture (fell off bridge), tingling at times bilateral hands History of Any Multi-Drug Resistant Organisms: None Reported Past Surgical History: Unable to Obtain Additional Past Surgical History / Comment(s): L foot plate/screws, rhinoplasty Past Anesthesia/Blood Transfusion Reactions: No Reported Reaction Past Psychological History: No Psychological Hx Reported Past Alcohol Use History: Abuse Past Drug Use History: Unable to Obtain - Past Family History Mother Family Medical History: Cancer Additional Family Medical History / Comment(s): Pt cannot recall type of cancer. Father Additional Family Medical History / Comment(s): ETOH Medications and Allergies Home Medications Medication Instructions Recorded Confirmed Type No Known Home Medications 03/04/24 03/04/24 History Allergies Allergy/AdvReac Type Severity Reaction Status Date / Time No Known Allergies Allergy Verified 03/04/24 14:36 Physical Examination - Vital Signs Vital Signs: Vital Signs Temp Pulse Resp BP Pulse Ox 03/05/24 08:18 91 16 162/113 97 03/05/24 05:00 84 21 123/99 94 L 03/05/24 04:00 97.9 F 84 17 151/103 95 03/05/24 00:00 82 16 155/99 96 03/04/24 22:00 90 14 141/99 96 03/04/24 19:10 92 13 123/90 95 03/04/24 17:30 100 22 140/98 98 03/04/24 16:34 89 22 134/95 98 03/04/24 14:00 100 26 H 120/78 99 03/04/24 13:56 98.2 F 117 H 12 77/44 93 L GENERAL: The patient is lying in bed and is not in acute distress. HENT: Has bruise on right lateral side of face. NEUROLOGICAL: Higher mental function: The patient is awake, alert, oriented to self, place and time. Patient is following commands. No aphasia and no neglect. Cranial nerves: The pupils are round, equal and reactive to light and accommodation. Visual marcum are full to confrontation throughout. Extraocular movement is intact no nystagmus is noted. Facial sensation is normal to touch throughout. The facial strength is normal throughout. Hearing is normal bilaterally to hand rub. Tongue is midline and moved [id number] without any difficulty. No dysarthria is noted. Shoulder shrug is normal bilaterally. Motor: The strength is 5 over 5 throughout. Normal tone and bulk. Cerebellum: Normal finger to nose heel to payne bilaterally. Sensation: Sensation is normal to touch throughout. Reflexes (right/left): 2+ Plantars are downgoing bilaterally. Results - Laboratory Findings CBC and BMP: 03/04/24 11:59 03/04/24 14:39 Abnormal Lab Findings: Abnormal Labs 03/04/24 03/04/24 03/04/24 11:59 11:59 11:59 WBC 10.8 H Hct 56.4 H MCV 112.7 H MCHC 29.2 L Lymphocytes # 5.6 H Macrocytosis Marked A Sodium Chloride 97 L Carbon Dioxide <5 L* Creatinine 1.38 H Glucose 233 H Plasma Lactic Acid Chau >24.0 H* Calcium 10.3 H Total Bilirubin 2.2 H AST 117 H ALT 106 H Total Protein 9.0 H Albumin 5.5 H Urine Protein Urine Glucose (UA) Urine Blood Urine Bacteria Hyaline Casts Urine Mucus U Benzodiazepines Scrn 03/04/24 03/04/24 03/04/24 14:39 14:39 19:36 WBC Hct MCV MCHC Lymphocytes # Macrocytosis Sodium 134 L Chloride Carbon Dioxide 20 L Creatinine 1.49 H Glucose 163 H Plasma Lactic Acid Chau 3.9 H* Calcium 8.3 L Total Bilirubin AST ALT Total Protein Albumin Urine Protein 1+ H Urine Glucose (UA) Trace H Urine Blood Small H Urine Bacteria Rare H Hyaline Casts 7 H Urine Mucus Occasional H U Benzodiazepines Scrn Detected H Assessment and Plan Assessment: This is a 63-year-old gentleman with significant alcohol use who presents because of seizure-like activity. Patient denies of any history of seizure. His serum alcohol level was less than 10. New onset seizure and it seems provoked due to alcohol withdrawal Elevated liver function test likely due to alcohol use Elevated serum lactic acid vein that reads resolved due to the seizure Significant alcohol use Plan: I loaded with the patient with Keppra 1500 mg once in the ED yesterday and started him on 750mg bid. After imaging and EEG I will consider making changes to the medication since she was not on any seizure medication does not have any history of seizures I ordered MRI of the brain and routine EEG which are pending Seizure precautions seizure pads Patient is on thiamine 100 mg daily. Per the [place] law because of the seizures, to avoid driving for 6 months until seizure-free, avoid heights, avoid swimming unassisted or using heavy machinery. Patient was counseled on alcohol cessation Patient is on CIWA protocol Will defer the rest of the medical management to primary team and other specialists The plan is discussed with patient and primary team. Thank you for the consultation. Time with Patient: Greater than 30
[2024-03-05 13:13] LABS: Basophils % (A) 1 %; Eosinophils # (A) 0.1 k/uL (0-0.7); Eosinophils % (A) 2 %; HCT 43.8 % (39.0-53.0); HGB 14.2 gm/dL (13.0-17.5); Lymphocytes # (A) 1.4 k/uL (1.0-4.8); Lymphocytes % (A) 25 %; MCH 32.5 pg (25.0-35.0); MCHC 32.4 g/dL (31.0-37.0); Mean Platelet Volume 7.9; Monocytes # (A) 0.3 k/uL (0-1.0); Monocytes % (A) 4 %; Neutrophils # (A) 3.9 k/uL (1.3-7.7); Neutrophils % (A) 68 %; Platelet Count 169 k/uL (150-450); RBC 4.36 m/uL (4.30-5.90); RDW 13.7 % (11.5-15.5); WBC 5.7 k/uL (3.8-10.6)
[2024-03-05] MEDS: amLODIPine 10 MG TAB PO SCH (13:17)
[2024-03-05] MEDS: METOPROLOL SUCCINATE (ER) 25 MG TAB.ER.24H PO SCH (13:17)
[2024-03-05 13:31] LABS: MCV 100.4 fL (80.0-100.0)
--- NOTE | 2024-03-05 13:32 | P.CRDCN ---
History of Present Illness Consult date: 03/05/24 Consult reason: atrial flutter History of present illness: History of present illness: This is a 63-year-old male patient of Dr. Lord with past medical history of hypertension, hyperlipidemia, family history of father having NV in his 60s, c hronic tobacco use, previous alcohol use with recent relapse. We have been asked to evaluate the patient for atrial flutter. Patient presented to the emergency center after having loss of consciousness with shaking suspicious for seizure activity. Patient has been drinking 1/5/day and last drink was on Monday. He denies having any chest pain at this time. No shortness of breath. He continues to be a smoker and recent relapse with alcohol. Patient was last in the office to see Dr. Lord on 02/06/2023. Patient had an abnormal stress test and was recommended for cardiac catheterization. 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 Patient is seen today in the emergency center waiting for bed on the cardiac stepdown unit. Neurology is on consult. EKG initial EKG is a tachycardic possible atrial flutter but most likely sinus tachycardia. Repeat EKG is sinus rhythm 90 bpm CAT scan of the cervical spine and brain: No cervical spine fracture. Mild multilevel degenerative disc disease. No acute intracranial process. Chronic small vessel ischemic disease. Laboratory studies: WBC 10.8, hemoglobin 16.5, platelet count 278. Sodium 134, potassium 3.8, BUN 15 creatinine 1.49. Lactic acid 3.9 with repeat 1.2. Ammonia level 10. Urine drug screen positive for benzodiazepines. AST 117, ALT 106. Home cardiac medications:none listed. At patient's last hospital visit, cardiac medications included Norvasc 10 mg daily and Toprol-XL 25 mg daily. Echocardiogram performed in the office on 01/30/2023 revealed EF of 55%. Grade 1 diastolic dysfunction. Moderate left ventricular hypertrophy. Mild BRY. Trace mitral regurgitation. Stress echocardiogram performed in the office on 11/30/[address] ress EKG portion as well as stress echo with inducible inferior ischemia. Good exercise tolerance. Normal LV EF 55%. Review Of Systems: At the time of my exam: CONSTITUTIONAL: Denies fever or chills. HEENT: Denies blurred vision, vision changes, or eye pain. Denies hemoptysis CARDIOVASCULAR: Denies chest pain. Denies orthopnea. Denies PND. Denies palpitations RESPIRATORY: Denies shortness of breath. GASTROINTESTINAL: Denies abdominal pain. Denies nausea or vomiting. HEMATOLOGIC: Denies bleeding disorders. GENITOURINARY: Denies any blood in urine. SKIN: Denies pruitis. Denies rash. Physical examination: Gen: This is a 63-year-old male in no acute distress VS: reviewed, blood pressure 163/113, heart rate 91, pulse ox 95% on room air. HEENT: Head is atraumatic, normocephalic. Pupils equal, round. Sclerae is anicteric. NECK: Supple. No JVD. LUNGS: Clear to auscultation. No wheezes or rhonchi. No intercostal retractions. HEART: Regular rate and rhythm. No murmur. ABDOMEN: Soft No tenderness. EXTREMITIES: No pedal edema. No calf tenderness. NEUROLOGICAL: Patient is awake, alert and oriented x3. Assessment: Tachyarrhythmia most likely a sinus tachycardia versus atrial flutter Suspected seizure activity/loss of consciousness related to alcohol Acute kidney injury Uncontrolled hypertension Hyperlipidemia Abnormal stress test with inducible inferior ischemia Alcohol abuse Tobacco use and dependence Plan: Patient will be started back on amlodipine 10 mg daily and Toprol-XL 25 mg daily Obtain 2-D echocardiogram and Doppler study to assess cardiac structure and function Smoking cessation discussed with the patient and patient will be referred to the [place] quit line. Monitor blood pressure closely Neurological workup for seizure activity Further recommendations to follow based upon clinical course Thank you kindly for this consultation. Nurse practitioner note has been reviewed, I agree with documented findings and plan of care. Patient was seen and examined. Past Medical History Past Medical History: Unable to Obtain Additional Past Medical History / Comment(s): gout, past skull fracture (fell off bridge), tingling at times bilateral hands History of Any Multi-Drug Resistant Organisms: None Reported Past Surgical History: Unable to Obtain Additional Past Surgical History / Comment(s): L foot plate/screws, rhinoplasty Past Anesthesia/Blood Transfusion Reactions: No Reported Reaction Past Psychological History: No Psychological Hx Reported Past Alcohol Use History: Abuse Past Drug Use History: Unable to Obtain - Past Family History Mother Family Medical History: Cancer Additional Family Medical History / Comment(s): Pt cannot recall type of cancer. Father Additional Family Medical History / Comment(s): ETOH Medications and Allergies Home Medications Medication Instructions Recorded Confirmed Type No Known Home Medications 03/04/24 03/04/24 History Allergies Allergy/AdvReac Type Severity Reaction Status Date / Time No Known Allergies Allergy Verified 03/04/24 14:36 Physical Exam Vitals: Vital Signs Temp Pulse Resp BP Pulse Ox 03/05/24 08:18 91 16 162/113 97 03/05/24 05:00 84 21 123/99 94 L 03/05/24 04:00 97.9 F 84 17 151/103 95 03/05/24 00:00 82 16 155/99 96 03/04/24 22:00 90 14 141/99 96 03/04/24 19:10 92 13 123/90 95 03/04/24 17:30 100 22 140/98 98 03/04/24 16:34 89 22 134/95 98 03/04/24 14:00 100 26 H 120/78 99 03/04/24 13:56 98.2 F 117 H 12 77/44 93 L Results 03/04/24 11:59 03/04/24 14:39 Cardiac Enzymes 03/04/24 Range/Units 11:59 AST 117 H (17-59) U/L Comprehensive Metabolic Panel 03/04/24 03/04/24 Range/Units 11:59 14:39 Sodium 141 134 L (137-145) mmol/L Potassium 4.2 3.8 (3.5-5.1) mmol/L Chloride 97 L 104 (98-107) mmol/L Carbon Dioxide <5 L* 20 L (22-30) mmol/L BUN 10 15 (9-20) mg/dL Creatinine 1.38 H 1.49 H (0.66-1.25) mg/dL Glucose 233 H 163 H (74-99) mg/dL Calcium 10.3 H 8.3 L (8.4-10.2) mg/dL AST 117 H (17-59) U/L ALT 106 H (4-49) U/L Alkaline Phosphatase 82 (38-126) U/L Total Protein 9.0 H (6.3-8.2) g/dL Albumin 5.5 H (3.5-5.0) g/dL Current Medications Generic Name Dose Route Start Last Admin Trade Name Freq PRN Reason Stop Dose Admin Dextrose/Water 25 ml 03/04/24 14:38 Dextrose 50% Syringe 50 Ml IVP PER PROTOCOL PRN Hypoglycemia Protocol Dextrose/Water 50 ml 03/04/24 14:38 Dextrose 50% Syringe 50 Ml IVP PER PROTOCOL PRN Hypoglycemia Protocol Heparin Sodium (Porcine) 5,000 unit 03/04/24 16:00 03/05/24 07:36 Heparin Sodium,Porcine 5,000 Unit/Ml 1 Ml Vial SQ Not Given Q8HR ASHIA Sodium Chloride 1,000 mls @ 75 mls/hr 03/04/24 15:30 03/05/24 06:00 Saline 0.9% IV 75 mls/hr .[id number] ASHIA Administration Insulin Aspart 0 unit 03/04/24 17:30 03/05/24 11:43 Insulin Aspart (Novolog) 100 Unit/Ml Vial SQ Not Given ACHS ASHIA Protocol Levetiracetam 750 mg 03/04/24 21:00 03/05/24 08:16 Levetiracetam Iv 500 Mg/5 Ml Vial IVP 750 mg Q12HR ASHIA Administration Lorazepam 1 mg 03/04/24 13:28 Lorazepam 2 Mg/Ml Inj IV Q1HR PRN CIWA 10 to 15 Lorazepam 1 mg 03/04/24 13:28 03/05/24 08:21 Lorazepam 2 Mg/Ml Inj IV 1 mg Q2HR PRN Administration CIWA 8 or 9 Lorazepam 2 mg 03/04/24 13:28 Lorazepam 2 Mg/Ml Inj IV 03/06/24 13:28 Q10M PRN CIWA 16 or higher Naloxone HCl 0.2 mg 03/04/24 15:15 Naloxone 0.4 Mg/Ml 1 Ml Vial IV Q2M PRN Opioid Reversal Thiamine HCl 100 mg 03/05/24 09:00 03/05/24 08:16 Thiamine 100 Mg Tab PO 100 mg DAILY ASHIA Administration 03/04/24 11:59 03/04/24 14:39
[2024-03-05 13:41] LABS: ALT 75 U/L (4-49); AST 114 U/L (17-59); African American GFR (CKD) 79 (>60 ml/min/1.73 sqM); Albumin 3.5 g/dL (3.5-5.0); Alkaline Phosphatase 65 U/L (38-126); Anion Gap 10 mmol/L; Blood Urea Nitrogen 19 mg/dL (9-20); Calcium 8.3 mg/dL (8.4-10.2); Carbon Dioxide 20 mmol/L (22-30); Chloride 106 mmol/L (98-107); Glucose 90 mg/dL (74-99); Non-African American GFR(CKD) 68 (>60 ml/min/1.73 sqM); Potassium 3.4 mmol/L (3.5-5.1); Sodium 136 mmol/L (137-145); Total Bilirubin 1.2 mg/dL (0.2-1.3); Total Protein 6.4 g/dL (6.3-8.2)
[2024-03-05] MEDS ORDERED: Potassium Replacement Protocol 1 EACH MISC MISCELLANE PRN (14:49)
[2024-03-05] MEDS: POTASSIUM CHLORIDE ER 20 MEQ TAB.ER PO SCH (15:09)
[2024-03-05 16:45] LABS: Glucose,Whole Blood 103 mg/dL (70-110)
[2024-03-05 20:09] LABS: Glucose,Whole Blood 122 mg/dL (70-110)
--- NOTE | 2024-03-05 20:39 | P.PN ---
Subjective Progress Note Date: 03/05/24 Patient is a 63-year-old male with a past medical history of alcohol abuse presents to ER due to altered mental status. Patient states that she was at home and became unsteady while he was was going inside and suddenly fell on the side and had a laceration on the right eyebrow. Patient was witnessed by history bystanders. Patient was also had having altered consciousness and suspected seizures. EMS was called and patient was brought to ER. Patient was obtunded with rapid respirations and tachycardia. Patient otherwise does not drink about 1 to 2 pint a day. Patient became more conscious and back to his baseline while in the ER. Denies any recent illnesses. No complaints of chest pain or shortness of breath. Denies any focal weakness. No leg swelling. CT head and cervical spine showed no evidence of intracranial acute process. Nonspecific white matter changes likely secondary to chronic small ischemic disease. No evidence of cervical spine fracture. Mild multilevel degenerative disc disease. EKG showed atrial flutter/tachycardia with rapid ventricular response. Laboratory data showed WBC 10.8 hemoglobin 16.5 and MCV 112.7 and platelets 278 Sodium 141 potassium 4.2 chloride 97 bicarb is less than 5 BUN 10 and creatinine 1.38 and blood sugar 233 Lactic acid greater than 24 calcium 10.3 and magnesium 1.6. Bili total bili 2.2 ALT 106 AST 117 and alk phos 106 and serum alcohol is 10. 03/05/2024 Patient is seen in follow-up today continues to be in the ER as a hold with cardiology as well as neurology following. Patient is maintained on IV Keppra along with CIWA protocol and patient required 1 dose of IV Ativan. No further seizure-like activity noted at this time and EEG along with MRI of the brain is scheduled and pending. Patient to continue with seizure precautions. Patient also reports has not been up and out of the bed and will have PT/OT therapy evaluate the patient. Patient is currently afebrile with no reports of chest pain or shortness of breath. Patient denies palpitations and no reports of nausea or vomiting. Will also add Librium taper. Replace electrolytes per protocol. Follow-up on repeat labs in the a.m. Review of systems: Constitutional: No reports of fatigue, fever, or chills Cardiovascular: No reports of chest pain or palpitations Respiratory: No reports of shortness of breath or cough GI: No reports of nausea, vomiting, or diarrhea : No reports of dysuria or retention Neurovascular: reports of generalized weakness and reports nursing staff will not allow him to get up due to risk of seizures and falls All medications have been reviewed PHYSICAL EXAMINATION: Patient is lying in the bed awake, alert and oriented x 3, no acute distress, well-developed, elderly appearing, unkept. HEENT: Normocephalic. Neck is supple. Pupils reactive. Nostrils clear. Oral cavity is moist. Neck reveals no JVD, carotid bruits, or thyromegaly. CHEST EXAMINATION: Trachea is central. Symmetrical expansion. Lung marcum clear to auscultation and percussion. CARDIAC: S1, S2 are muffled, irregular ABDOMEN: Soft. Obese. Bowel sounds normal. No organomegaly. No abdominal bruits. Extremities: reveal no edema. No clubbing or cyanosis Neurologically awake, alert, oriented x3 with well-coordinated movements. No focal deficits noted, diffusely weak Skin: No rash or skin lesions. Psychiatric: Cooperative. Non-suicidal Musculoskeletal: No joint swelling or deformity. Normal range of motion. Assessment: Altered mental status, multifactorial, suspected seizures, likely secondary to acute alcohol withdrawal EtOH abuse with recent relapse and reports to drinking about 1/5 a day Unsteady gait and status post fall. Severe lactic acidosis, present on admission likely secondary to seizure activity Hypertension history, uncontrolled Possible atrial flutter, cardiology consulted and pending Suspected new onset seizures versus rule out arrhythmia, likely secondary to alcohol induced Status post fall and laceration on the right eyebrow and back of the head. Acute kidney injury likely prerenal Hyperglycemia Elevated liver enzymes likely secondary to alcohol use Recent abnormal stress test in January 2024 with inducible inferior ischemia Failure of outpatient follow-up Noncompliance with medications Continued ongoing nicotine dependence Hypomagnesemia replaced GI DVT prophylaxis Full code Plan: Patient will be continued on telemetry monitoring. Continue with IV hydration and replace electrolytes. Patient's mentation is back to baseline. Lactic acid level improved Neurology following and is maintained on IV Keppra with seizure precautions and EEG along with MRI of the brain is ordered and pending for today Cardiology consulted for an arrhythmia. 2D echo is ordered and pending Potassium and magnesium low and will replace per protocol and follow-up on repeat labs Recommend PT/OT therapy evaluation Patient is a daily drinker and will continue CIWA protocol with concerns of acute alcohol withdrawal and delirium tremens. Will add Librium taper. Continue seizure precautions Due to multiple complex medical issues, prognosis is guarded The impression and plan of care has been dictated by Gaby Vega, Nurse Practitioner as directed. Dr. Anushka MD I have performed a history and examination and MDM of this patient, discussed the same with the dictator, and agree with the dictator's assessment and plan as written ,documented as a scribe. Based on total visit time, I have performed more than 50% of the visit. Objective - Vital Signs Vital signs: Vital Signs Temp 97.9 F 03/05/24 04:00 Pulse 91 03/05/24 08:18 Resp 16 03/05/24 08:18 BP 162/113 03/05/24 08:18 Pulse Ox 97 03/05/24 08:18 FiO2 Intake & Output 03/04/24 03/05/24 03/05/24 18:59 06:59 18:59 Weight 81.647 kg - Labs CBC & Chem 7: 03/05/24 12:34 03/05/24 12:34 Labs: Abnormal Lab Results - Last 24 Hours (Table) 03/04/24 03/04/24 03/04/24 Range/Units 11:59 11:59 11:59 WBC 10.8 H (3.8-10.6) k/uL Hct 56.4 H (39.0-53.0) % MCV 112.7 H (80.0-100.0) fL MCHC 29.2 L (31.0-37.0) g/dL Lymphocytes # 5.6 H (1.0-4.8) k/uL Macrocytosis Marked A Sodium (137-145) mmol/L Chloride 97 L (98-107) mmol/L Carbon Dioxide <5 L* (22-30) mmol/L Creatinine 1.38 H (0.66-1.25) mg/dL Glucose 233 H (74-99) mg/dL Plasma Lactic Acid Chau >24.0 H* (0.7-2.0) mmol/L Calcium 10.3 H (8.4-10.2) mg/dL Total Bilirubin 2.2 H (0.2-1.3) mg/dL AST 117 H (17-59) U/L ALT 106 H (4-49) U/L Total Protein 9.0 H (6.3-8.2) g/dL Albumin 5.5 H (3.5-5.0) g/dL Urine Protein (Negative) Urine Glucose (UA) (Negative) Urine Blood (Negative) Urine Bacteria (None) /hpf Hyaline Casts (0-2) /lpf Urine Mucus (None) /hpf U Benzodiazepines Scrn (NotDetected) 03/04/24 03/04/24 03/04/24 Range/Units 14:39 14:39 19:36 WBC (3.8-10.6) k/uL Hct (39.0-53.0) % MCV (80.0-100.0) fL MCHC (31.0-37.0) g/dL Lymphocytes # (1.0-4.8) k/uL Macrocytosis Sodium 134 L (137-145) mmol/L Chloride (98-107) mmol/L Carbon Dioxide 20 L (22-30) mmol/L Creatinine 1.49 H (0.66-1.25) mg/dL Glucose 163 H (74-99) mg/dL Plasma Lactic Acid Chau 3.9 H* (0.7-2.0) mmol/L Calcium 8.3 L (8.4-10.2) mg/dL Total Bilirubin (0.2-1.3) mg/dL AST (17-59) U/L ALT (4-49) U/L Total Protein (6.3-8.2) g/dL Albumin (3.5-5.0) g/dL Urine Protein 1+ H (Negative) Urine Glucose (UA) Trace H (Negative) Urine Blood Small H (Negative) Urine Bacteria Rare H (None) /hpf Hyaline Casts 7 H (0-2) /lpf Urine Mucus Occasional H (None) /hpf U Benzodiazepines Scrn Detected H (NotDetected)
--- NOTE | 2024-03-05 21:49 | EEG ---
ELECTROENCEPHALOGRAM REPORT CLINICAL HISTORY: This is a 63-year-old gentleman with history of alcohol use, who presents because of seizure-like activity. The video EEG is obtained to evaluate for seizure epileptiform activity. RELEVANT MEDICATIONS: 1. Keppra. 2. Ativan. EEG TYPE: A routine 21-channel EEG with video using the 10/20 electrode placement system. DESCRIPTION: Wakefulness and drowsiness are obtained. During awake state, the posterior-dominant rhythm consists of [id number] voltage of 8.5 hertz activity that is well modulated and well sustained. There is no physiological stage 2 sleep architecture. There is no focal slowing. Interictal and ictal is none. ACTIVATION PROCEDURE: Photic stimulation did not evoke a posterior driving response. There is no abnormality during the photic stimulation. Hyperventilation is not performed. CLINICAL INTERPRETATION: This is a normal routine EEG. There is no focal slowing, epileptiform discharge or seizure on the EEG. A normal routine EEG does not rule out underlying epilepsy. Clinical correlation is recommended. JOVITA / MARTINN: [id number] /
[2024-03-05] MEDS: ACETAMINOPHEN TAB 325 MG TAB PO PRN (22:51)
[2024-03-06 04:53] LABS: Glucose,Whole Blood 109 mg/dL (70-110)
[2024-03-06] MEDS: IBUPROFEN 400 MG TAB PO PRN (07:56)
[2024-03-06] MEDS: ASPIRIN 81 MG PO SCH (07:56)
[2024-03-06] MEDS ORDERED: LORazepam 1 MG/0.5 ML VIAL IV PRN ×3 (08:10→08:11)
[2024-03-06 11:39] LABS: Glucose,Whole Blood 93 mg/dL (70-110)
[2024-03-06 11:46] LABS: Basophils % (A) 1 %; Eosinophils # (A) 0.2 k/uL (0-0.7); Eosinophils % (A) 3 %; HCT 44.6 % (39.0-53.0); HGB 14.3 gm/dL (13.0-17.5); Lymphocytes # (A) 1.4 k/uL (1.0-4.8); Lymphocytes % (A) 24 %; MCH 32.5 pg (25.0-35.0); MCV 101.7 fL (80.0-100.0); Macrocytosis Slight; Monocytes # (A) 0.3 k/uL (0-1.0); Monocytes % (A) 6 %; Neutrophils # (A) 3.8 k/uL (1.3-7.7); Neutrophils % (A) 65 %; Platelet Count 176 k/uL (150-450); RBC 4.38 m/uL (4.30-5.90); RDW 13.7 % (11.5-15.5); WBC 5.8 k/uL (3.8-10.6)
[2024-03-06 12:05] LABS: African American GFR (CKD) >90 (>60 ml/min/1.73 sqM); Anion Gap 6 mmol/L; Blood Urea Nitrogen 16 mg/dL (9-20); Calcium 9.3 mg/dL (8.4-10.2); Carbon Dioxide 27 mmol/L (22-30); Chloride 104 mmol/L (98-107); Glucose 78 mg/dL (74-99); Magnesium 1.6 mg/dL (1.6-2.3); Non-African American GFR(CKD) 85 (>60 ml/min/1.73 sqM); Potassium 3.7 mmol/L (3.5-5.1); Sodium 137 mmol/L (137-145)
--- NOTE | 2024-03-06 13:50 | P.PN ---
Subjective Progress Note Date: 03/06/24 Consult reason: atrial flutter History of present illness: This is a 63-year-old male patient of Dr. Lord with past medical history of hypertension, hyperlipidemia, family history of father having NE in his 60s, chronic tobacco use, previous alcohol use with recent relapse. We have been asked to evaluate the patient for atrial flutter. Patient presented to the emergency center after having loss of consciousness with shaking suspicious for seizure activity. Patient has been drinking 1/5/day and last drink was on Monday. He denies having any chest pain at this time. No shortness of breath. He continues to be a smoker and recent relapse with alcohol. Patient was last in the office to see Dr. Lord on 02/06/2023. Patient had an abnormal stress test and was recommended for cardiac catheterization. Patient did not follow-up and at time of discussion does not recognize Dr. Lord as his regular educational/development assistant. Patient is seen today in the emergency center waiting for bed on the cardiac stepdown unit. Neurology is on consult. EKG initial EKG is a tachycardic possible atrial flutter but most likely sinus tachycardia. Repeat EKG is sinus rhythm 90 bpm CAT scan of the cervical spine and brain: No cervical spine fracture. Mild multilevel degenerative disc disease. No acute intracranial process. Chronic small vessel ischemic disease. Laboratory studies: WBC 10.8, hemoglobin 16.5, platelet count 278. Sodium 134, potassium 3.8, BUN 15 creatinine 1.49. Lactic acid 3.9 with repeat 1.2. Ammonia level 10. Urine drug screen positive for benzodiazepines. AST 117, ALT 106. Home cardiac medications:none listed. At patient's last hospital visit, cardiac medications included Norvasc 10 mg daily and Toprol-XL 25 mg daily. Echocardiogram performed in the office on 01/30/2023 revealed EF of 55%. Grade 1 diastolic dysfunction. Moderate left ventricular hypertrophy. Mild BRY. Trace mitral regurgitation. Stress echocardiogram performed in the office on 11/30/2022 revealed abnormal stress EKG portion as well as stress echo with inducible inferior ischemia. Good exercise tolerance. Normal LV EF 55%. 03/06 Patient is seen today in follow-up on the cardiac stepdown unit. Blood pressure 147/97-151/109, heart rate 72, pulse ox 97% on room air. Repeat blood work reveals hemoglobin 14.3. Creatinine 0.95, potassium 3.7. Telemetry is sinus rhythm. Echocardiogram is pending. Patient is followed by neurology and sche duled for MRI of the brain. Discussed with patient the abnormal stress test that was obtained in the office and his need for follow-up with Dr. Lord. Patient verbalizes understanding. Physical examination: Gen: This is a 63-year-old male in no acute distress VS: reviewed NECK: Supple. No JVD. LUNGS: Clear to auscultation. No wheezes or rhonchi. No intercostal retractions. HEART: Regular rate and rhythm. No murmur. ABDOMEN: Soft No tenderness. EXTREMITIES: No pedal edema. No calf tenderness. NEUROLOGICAL: Patient is awake, alert and oriented x3. Assessment: Tachyarrhythmia most likely a sinus tachycardia versus atrial flutter Suspected seizure activity/loss of consciousness related to alcohol Acute kidney injury Uncontrolled hypertension Hyperlipidemia Abnormal stress test with inducible inferior ischemia Alcohol abuse Tobacco use and dependence Plan: Continue amlodipine 10 mg daily and Toprol-XL 25 mg daily Obtain 2-D echocardiogram and Doppler study to assess cardiac structure and function Smoking cessation discussed with the patient and patient will be referred to the [place] quit line. Add losartan 25 mg daily Monitor blood pressure closely Neurological workup for seizure activity Further recommendations to follow based upon clinical course Nurse practitioner note has been reviewed, I agree with documented findings and plan of care. Patient was seen and examined. Objective - Vital Signs Vital signs: Vital Signs Temp 98.1 F 03/06/24 11:57 Pulse 72 03/06/24 11:57 Resp 17 03/06/24 11:57 BP 147/97 03/06/24 11:57 Pulse Ox 97 03/06/24 11:57 FiO2 Intake & Output 03/05/24 03/06/24 03/06/24 18:59 06:59 18:59 Intake Total 360 0 236 Balance 360 0 236 Weight 81.647 kg Intake: Oral 360 0 236 Other: Voiding Method Toilet Toilet # Voids 0 # Bowel Movements 0 - Labs CBC & Chem 7: 03/06/24 10:35 03/06/24 10:35 Labs: Abnormal Lab Results - Last 24 Hours (Table) 03/05/24 03/06/24 Range/Units 20:07 10:35 MCV 101.7 H (80.0-100.0) fL POC Glucose (mg/dL) 122 H (70-110) mg/dL
[2024-03-06] MEDS: LOSARTAN 25 MG TAB PO SCH (15:37)
--- NOTE | 2024-03-06 16:34 | P.PN ---
Subjective Progress Note Date: 03/06/24 I am following with the patient and patient feels she is doing much better. Denies of any focal weakness or any further seizure-like activity. He stated in the past he used to have tremor with withdrawal or alcohol use but not to the extent that he had prior to present to the hospital and denies any history of seizure. Currently again he is feeling much better. He was adamant that he drank heavily recently and did not think he was in withdrawal. Objective - Vital Signs Vital signs: Vital Signs Temp 98.4 F 03/06/24 15:37 Pulse 80 03/06/24 15:37 Resp 17 03/06/24 15:37 BP 136/94 03/06/24 15:37 Pulse Ox 95 03/06/24 15:37 FiO2 Intake & Output 03/05/24 03/06/24 03/06/24 18:59 06:59 18:59 Intake Total 360 0 776 Balance 360 0 776 Weight 81.647 kg Intake: Oral 360 0 776 Other: Voiding Method Toilet Toilet # Voids 0 3 # Bowel Movements 0 1 - Exam GENERAL: The patient is sitting in a recliner chair and is not in acute dist ress. HENT: Has bruise on right lateral side of face. NEUROLOGICAL: Higher mental function: The patient is awake, alert, oriented to self, place and time. Patient is following commands. No aphasia and no neglect. Cranial nerves: The pupils are round, equal and reactive to light and accommodation. Visual marcum are full to confrontation throughout. Extraocular movement is intact no nystagmus is noted. Facial sensation is normal to touch throughout. The facial strength is normal throughout. Hearing is normal bilaterally to hand rub. Tongue is midline and moved [id number] without any d ifficulty. No dysarthria is noted. Shoulder shrug is normal bilaterally. Motor: The strength is 5 over 5 throughout. Normal tone and bulk. Cerebellum: Normal finger to nose heel to payne bilaterally. Sensation: Sensation is normal to touch throughout. Reflexes (right/left): 2+ Plantars are downgoing bilaterally. Some of the workup during this hospital visit consisted of: Vitamin B12 is 506 Serum folate is 10.8 Ammonia level is 10. Creatinine is 1.49 Serum glucose 233 AST of 117 ALT of 107 Serum alcohol is less than 10 Urine drug screen is positive for benzos Initial plasma lactic acid vein is more than 20 4 repeat is 3.9 and the most recent has normalized. CT of the head and cervical spine is reported as no acute intracranial process. Nonspecific white matter changes, likely secondary due to chronic small vessel ischemic disease. No evidence of cervical spine fracture. Mild multilevel degenerative disc disease. Reviewed the CT of the head and agree with the report. Routine EEG is normal. - Labs CBC & Chem 7: 03/06/24 10:35 03/06/24 10:35 Labs: Abnormal Lab Results - Last 24 Hours (Table) 03/05/24 03/06/24 Range/Units 20:07 10:35 MCV 101.7 H (80.0-100.0) fL POC Glucose (mg/dL) 122 H (70-110) mg/dL Assessment and Plan Assessment: This is a 63-year-old gentleman with significant alcohol use who presents because of seizure-like activity. Patient denies of any history of seizure. His serum alcohol level was less than 10. New onset seizure and it seems provoked due to alcohol withdrawal. Patient states he had mild tremors in the past with alcohol use but not to this extent and denies any history of seizures. Routine EEG is normal. Elevated liver function test likely due to alcohol use Elevated serum lactic acid vein that reads resolved due to the seizure Significant alcohol use Plan: I loaded with the patient with Keppra 1500 mg once in the ED yand started him on 750mg bid. Reports since the EEG is normal I will go down to Keppra 500 mg twice daily and the patient is agreement of being on Keppra. I notified him of the side effects of the Keppra and so far no side effects he is having. Pending MRI of the brain. Seizure precautions seizure pads Patient is on thiamine 100 mg daily. Per the [place] law because of the seizure, to avoid driving for 6 months until seizure-free, avoid heights, avoid swimming unassisted or using heavy machinery. Patient was counseled on alcohol cessation Patient is on [facility] protocol Will defer the rest of the medical management to primary team and other specialists The plan is discussed with patient and primary team. Time with Patient: Less than 30
[2024-03-06] MEDS: levETIRAcetam 500 MG TAB PO SCH (22:08)
--- NOTE | 2024-03-07 05:34 | P.PN ---
Subjective Progress Note Date: 03/06/24 Patient is a 63-year-old male with a past medical history of alcohol abuse presents to ER due to altered mental status. Patient states that she was at home and became unsteady while he was was going inside and suddenly fell on the side and had a laceration on the right eyebrow. Patient was witnessed by history bystanders. Patient was also had having altered consciousness and suspected seizures. EMS was called and patient was brought to ER. Patient was obtunded with rapid respirations and tachycardia. Patient otherwise does not drink about 1 to 2 pint a day. Patient became more conscious and back to his baseline while in the ER. Denies any recent illnesses. No complaints of chest pain or shortness of breath. Denies any focal weakness. No leg swelling. CT head and cervical spine showed no evidence of intracranial acute process. Nonspecific white matter changes likely secondary to chronic small ischemic disease. No evidence of cervical spine fracture. Mild multilevel degenerative disc disease. EKG showed atrial flutter/tachycardia with rapid ventricular response. Laboratory data showed WBC 10.8 hemoglobin 16.5 and MCV 112.7 and platelets 278 Sodium 141 potassium 4.2 chloride 97 bicarb is less than 5 BUN 10 and creatinine 1.38 and blood sugar 233 Lactic acid greater than 24 calcium 10.3 and magnesium 1.6. Bili total bili 2.2 ALT 106 AST 117 and alk phos 106 and serum alcohol is 10. 03/05/2024 Patient is seen in follow-up today continues to be in the ER as a hold with cardiology as well as neurology following. Patient is maintained on IV Keppra along with CIWA protocol and patient required 1 dose of IV Ativan. No further seizure-like activity noted at this time and EEG along with MRI of the brain is scheduled and pending. Patient to continue with seizure precautions. Patient also reports has not been up and out of the bed and will have PT/OT therapy evaluate the patient. Patient is currently afebrile with no reports of chest pain or shortness of breath. Patient denies palpitations and no reports of nausea or vomiting. Will also add Librium taper. Replace electrolytes per protocol. Follow-up on repeat labs in the a.m. 03/06/2024 Patient is seen in follow-up today being followed by neurology along with cardiology. Patient is scheduled to undergo 2D echo as well as an MRI of the brain. Patient did undergo EEG which was normal with neurology following and titrating the dose of Keppra. Continues to currently await MRI of the brain which is pending. Per nursing staff there is no current time set for when the MRI will be performed. Patient reports to feeling significantly improved and would like to go home. Cardiology following as well and will discuss with consultations regarding discharge planning. Review of systems: Constitutional: No reports of fatigue, fever, or chills Cardiovascular: No reports of chest pain or palpitations Respiratory: No reports of shortness of breath or cough GI: No reports of nausea, vomiting, or diarrhea : No reports of dysuria or retention Neurovascular: No reports of generalized weakness, reports some chronic knee and leg discomfort All medications have been reviewed PHYSICAL EXAMINATION: Patient is currently sitting up in the chair awake, alert and oriented x 3, no acute distress, well-developed, elderly appearing, unkept. HEENT: Normocephalic. Neck is supple. Pupils reactive. Nostrils clear. Oral cavity is moist. Neck reveals no JVD, carotid bruits, or thyromegaly. CHEST EXAMINATION: Trachea is central. Symmetrical expansion. Lung marucm clear to auscultation and percussion. CARDIAC: S1, S2 are muffled, irregular ABDOMEN: Soft. Obese. Bowel sounds normal. No organomegaly. No abdominal bruits. Extremities: reveal no edema. No clubbing or cyanosis Neurologically awake, alert, oriented x3 with well-coordinated movements. No focal deficits noted, diffusely weak Skin: No rash or skin lesions. Psychiatric: Cooperative. Non-suicidal Musculoskeletal: No joint swelling or deformity. Normal range of motion. Assessment: Altered mental status, multifactorial, suspected seizures, likely secondary to acute alcohol withdrawal EtOH abuse with recent relapse and reports to drinking about 1/5 a day Unsteady gait and status post fall. Severe lactic acidosis, present on admission likely secondary to seizure activity, improved Hypertension history, uncontrolled Possible atrial flutter, cardiology consulted and following making adjustments to medications Suspected new onset seizures versus rule out arrhythmia, likely secondary to alcohol induced Status post fall and laceration on the right eyebrow and back of the head. Acute kidney injury likely prerenal Hyperglycemia Elevated liver enzymes likely secondary to alcohol use Recent abnormal stress test in January 2024 with inducible inferior ischemia Failure of outpatient follow-up Noncompliance with medications Continued ongoing nicotine dependence Hypomagnesemia replaced GI/DVT prophylaxis Full code Plan: Patient will be continued on telemetry monitoring. Continue with IV hydration and replace electrolytes. Patient's mentation is back to baseline. Lactic acid level improved Neurology following and is maintained on IV Keppra with seizure precautions and EEG is within normal limits and making adjustments to Keppra. MRI is pending Cardiology following for an arrhythmia. 2D echo is ordered and pending Potassium and magnesium are being replaced per protocol Recommend PT/OT therapy evaluation Patient is a daily drinker and will continue CIWA protocol with concerns of acute alcohol withdrawal and delirium tremens. Will continue Librium taper. Continue seizure precautions Due to multiple complex medical issues, prognosis is guarded The impression and plan of care has been dictated by Gaby Vega, Nurse Practitioner as directed. Dr. Anushka MD I have performed a history and examination and MDM of this patient, discussed the same with the dictator, and agree with the dictator's assessment and plan as written ,documented as a scribe. Based on total visit time, I have performed more than 50% of the visit. Objective - Vital Signs Vital signs: Vital Signs Temp 96.8 F L 03/06/24 07:50 Pulse 104 H 03/06/24 07:50 Resp 17 03/06/24 07:50 BP 151/109 03/06/24 07:50 Pulse Ox 97 03/06/24 07:50 FiO2 Intake & Output 03/05/24 03/06/24 03/06/24 18:59 06:59 18:59 Intake Total 360 0 118 Balance 360 0 118 Weight 81.647 kg Intake: Oral 360 0 118 Other: Voiding Method Toilet # Voids 0 # Bowel Movements 0 - Labs CBC & Chem 7: 03/06/24 10:35 03/06/24 10:35 Labs: Abnormal Lab Results - Last 24 Hours (Table) 03/05/24 03/05/24 03/05/24 Range/Units 12:34 12:34 20:07 MCV 100.4 H D (80.0-100.0) fL Sodium 136 L (137-145) mmol/L Potassium 3.4 L (3.5-5.1) mmol/L Carbon Dioxide 20 L (22-30) mmol/L POC Glucose (mg/dL) 122 H (70-110) mg/dL Calcium 8.3 L (8.4-10.2) mg/dL AST 114 H (17-59) U/L ALT 75 H (4-49) U/L
--- NOTE | 2024-03-07 13:07 | CA ---
Transthoracic Echo Report Name: Cisco Sandoval Age: 63 Gender: M : 1960 Exam Date: 03/07/2024 09:18 Exam Location: [facility] Ht (in): 69 Wt (lb): 180 Ordering Physician: Gladys Gage Attending/Referring Phys: [id number], [employer] Vice President Amy Haro, NO Procedure CPT: Indications: LVF Cardiac Hx: Technical Quality: Fair Contrast 1: Total Dose (mL): Contrast 2: Total Dose (mL): MEASUREMENTS (Male / Female) Normal Values 2D ECHO LV Diastolic Diameter PLAX 3.3 cm 4.2 - 5.9 / 3.9 - 5.3 cm LV Systolic Diameter PLAX 2.6 cm IVS Diastolic Thickness 1.5 cm 0.6 - 1.0 / 0.6 - 0.9 cm LVPW Diastolic Thickness 1.6 cm 0.6 - 1.0 / 0.6 - 0.9 cm LV Relative Wall Thickness 0.9 RV Internal Dim ED PLAX 2.5 cm LA Systolic Diameter LX 3.4 cm 3.0 - 4.0 / 2.7 - 3.8 cm LV Diastolic Volume MOD BP 54.6 cm??? 67 - 155 / 56 - 104 cm??? LV Systolic Volume MOD BP 27.3 cm??? 22 - 58 / 19 - 49 cm??? LV Ejection Fraction MOD BP 50.0 % >= 55 % LV Cardiac Index MOD BP 1143.7 cm???/min???m??? LV Diastolic Volume MOD 4C 54.4 cm??? LV Systolic Volume MOD 4C 23.7 cm??? LV Ejection Fraction MOD 4C 56.4 % LV Cardiac Index MOD 4C 1284.9 cm???/min???m??? LV Diastolic Length 4C 8.8 cm LV Systolic Length 4C 7.3 cm LV Diastolic Volume MOD 2C 53.9 cm??? LV Systolic Volume MOD 2C 29.3 cm??? LV Ejection Fraction MOD 2C 45.6 % LV Cardiac Index MOD 2C 1027.9 cm???/min???m??? LV Diastolic Length 2C 8.6 cm LV Systolic Length 2C 7.9 cm M-MODE Aortic Root Diameter MM 3.7 cm LA Systolic Diameter MM 3.6 cm LA Ao Ratio MM 1.0 AV Cusp Separation MM 2.5 cm DOPPLER Mitral E Point Velocity 39.3 cm/s Mitral A Point Velocity 61.5 cm/s Mitral E to A Ratio 0.6 MV Deceleration Time 223.0 ms MV E' Velocity 4.7 cm/s Mitral E to MV E' Ratio 8.4 FINDINGS Left Ventricle Left ventricular ejection fraction is estimated at 55-60 %. Moderately increased septal wall thickness. Normal left ventricular wall motion. Left ventricular cavity size normal. Right Ventricle Right ventricle not well visualized. Right ventricular systolic pressure within normal limits. Right Atrium Normal right atrial size. Left Atrium Normal left atrial size. Mitral Valve Structurally normal mitral valve. Trace to mild mitral regurgitation. Aortic Valve Trileaflet aortic valve. No aortic stenosis. No aortic regurgitation. Tricuspid Valve Structurally normal tricuspid valve. Trace tricuspid regurgitation. Pulmonic Valve Structurally normal pulmonic valve. Trace pulmonic regurgitation. No pulmonic stenosis. Pericardium No pericardial or pleural effusion. Aorta Aorta at upper limits of normal. CONCLUSIONS Left ventricular ejection fraction 55-60% Moderate increased left ventricular wall thickness Trace to mild mitral regurgitation Trace tricuspid regurgitation No pericardial effusion Previewed by: Dr. Ezekiel Lord DO (Electronically Signed) Final Date: 07 Mar 2024 13:06
--- NOTE | 2024-03-07 13:40 | P.PN ---
Subjective Progress Note Date: 03/07/24 I am following-up with patient and he feels he is doing well. Still pending MRI Brain. Objective - Vital Signs Vital signs: Vital Signs Temp 97.9 F 03/07/24 09:00 Pulse 83 03/07/24 12:51 Resp 18 03/07/24 12:51 BP 116/75 03/07/24 12:51 Pulse Ox 92 L 03/07/24 12:51 FiO2 Intake & Output 03/06/24 03/07/24 03/07/24 18:59 06:59 18:59 Intake Total 894 486 Balance 894 486 Intake: IV 10 Invasive Line 1 10 Oral 894 476 Other: Voiding Method Toilet Toilet Toilet # Voids 3 # Bowel Movements 1 - Labs CBC & Chem 7: 03/06/24 10:35 03/06/24 10:35 Assessment and Plan Assessment: This is a 63-year-old gentleman with significant alcohol use who presents because of seizure-like activity. Patient denies of any history of seizure. His serum alcohol level was less than 10. New onset seizure and it seems provoked due to alcohol withdrawal. Patient states he had mild tremors in the past with alcohol use but not to this extent and denies any history of seizures. Routine EEG is normal. Elevated liver function test likely due to alcohol use Elevated serum lactic acid vein that reads resolved due to the seizure Significant alcohol use Plan: I loaded with the patient with Keppra 1500 mg once in the ED yand started him on 750mg bid. Reports since the EEG is normal I will go down to Keppra 500 mg twice daily and the patient is agreement of being on Keppra. I notified him of the side effects of the Keppra and so far no side effects he is having. Pending MRI of the brain. Seizure precautions seizure pads Patient is on thiamine 100 mg daily. Per the [place] law because of the seizure, to avoid driving for 6 months until seizure-free, avoid heights, avoid swimming unassisted or using heavy machinery. Patient was counseled on alcohol cessation Patient is on CIWA protocol Will defer the rest of the medical management to primary team and other specialists Upon discharge, recommend the patient to follow-up with neurologist as outpatient within 2 weeks. The plan is discussed with patient and primary team. If MRI brain is unremarkable then no further neurological work-up. Time with Patient: Less than 30
--- NOTE | 2024-03-07 14:43 | P.PN ---
Subjective Progress Note Date: 03/07/24 Consult reason: atrial flutter History of present illness: This is a 63-year-old male patient of Dr. Lord with past medical history of hypertension, hyperlipidemia, family history of father having RI in his 60s, chronic tobacco use, previous alcohol use with recent relapse. We have been asked to evaluate the patient for atrial flutter. Patient presented to the emergency center after having loss of consciousness with shaking suspicious for seizure activity. Patient has been drinking 1/5/day and last drink was on Monday. He denies having any chest pain at this time. No shortness of breath. He continues to be a smoker and recent relapse with alcohol. Patient was last in the office to see Dr. Lord on 02/06/2023. Patient had an abnormal stress test and was recommended for cardiac catheterization. 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 Patient is seen today in the emergency center waiting for bed on the cardiac stepdown unit. Neurology is on consult. EKG initial EKG is a tachycardic possible atrial flutter but most likely sinus tachycardia. Repeat EKG is sinus rhythm 90 bpm CAT scan of the cervical spine and brain: No cervical spine fracture. Mild multilevel degenerative disc disease. No acute intracranial process. Chronic small vessel ischemic disease. Laboratory studies: WBC 10.8, hemoglobin 16.5, platelet count 278. Sodium 134, potassium 3.8, BUN 15 creatinine 1.49. Lactic acid 3.9 with repeat 1.2. Ammonia level 10. Urine drug screen positive for benzodiazepines. AST 117, ALT 106. Home cardiac medications:none listed. At patient's last hospital visit, cardiac medications included Norvasc 10 mg daily and Toprol-XL 25 mg daily. Echocardiogram performed in the office on 01/30/2023 revealed EF of 55%. Grade 1 diastolic dysfunction. Moderate left ventricular hypertrophy. Mild BRY. Trace mitral regurgitation. Stress echocardiogram performed in the office on 11/30/2022 revealed abnormal stress EKG portion as well as stress echo with inducible inferior ischemia. Good exercise tolerance. Normal LV EF 55%. 03/06 Patient is seen today in follow-up on the cardiac stepdown unit. Blood pressure 147/97-151/109, heart rate 72, pulse ox 97% on room air. Repeat blood work reveals hemoglobin 14.3. Creatinine 0.95, potassium 3.7. Telemetry is sinus rhythm. Echocardiogram is pending. Patient is followed by neurology and sche duled for MRI of the brain. Discussed with patient the abnormal stress test that was obtained in the office and his need for follow-up with Dr. Lord. Patient verbalizes understanding. 03/07 Patient is seen today in follow-up. Telemetry has been a sinus rhythm, heart rate is controlled in the 80s, blood pressure 116/75. Pulse ox 92% on room air. Repeat blood work reveals sodium 137, potassium 3.7, magnesium 1.6. BUN 16 creatinine 0.95. Echocardiogram reveals EF 55 to 60%. Moderately increased left ventricular wall thickness. Trace to mild mitral regurgitation. Trace tricuspid regurgitation. No pericardial effusion. Physical examination: Gen: This is a 63-year-old male in no acute distress VS: reviewed NECK: Supple. No JVD. LUNGS: Clear to auscultation. No wheezes or rhonchi. No intercostal retractions. HEART: Regular rate and rhythm. No murmur. ABDOMEN: Soft No tenderness. EXTREMITIES: No pedal edema. No calf tenderness. NEUROLOGICAL: Patient is awake, alert and oriented x3. Assessment: Tachyarrhythmia most likely a sinus tachycardia versus atrial flutter Suspected seizure activity/loss of consciousness related to alcohol Acute kidney injury Uncontrolled hypertension Hyperlipidemia Abnormal stress test with inducible inferior ischemia Alcohol abuse Tobacco use and dependence Plan: Continue amlodipine 10 mg daily and Toprol-XL 25 mg daily Continue aspirin 81 mg daily, losartan 25 mg daily Smoking cessation discussed with the patient and patient will be referred to the [place] quit line. Cardiology will sign off this case and follow on an as-needed basis. Please reconsult for any new concerns. Patient may follow-up in the office in one to [address] Lord. Nurse practitioner note has been reviewed, I agree with documented findings and plan of care. Patient was seen and examined. Objective - Vital Signs Vital signs: Vital Signs Temp 97.9 F 03/07/24 09:00 Pulse 86 03/07/24 09:00 Resp 18 03/07/24 09:00 BP 126/88 03/07/24 09:00 Pulse Ox 95 03/07/24 09:00 FiO2 Intake & Output 03/06/24 03/07/24 03/07/24 18:59 06:59 18:59 Intake Total 894 128 Balance 894 128 Intake: IV 10 Invasive Line 1 10 Oral [id number] [id number] Other: Voiding Method Toilet Toilet # Voids 3 # Bowel Movements 1 - Labs CBC & Chem 7: 03/06/24 10:35 03/06/24 10:35 Labs: Abnormal Lab Results - Last 24 Hours (Table) 03/06/24 Range/Units 10:35 MCV 101.7 H (80.0-100.0) fL
--- NOTE | 2024-03-07 16:44 | MR ---
EXAMINATION TYPE: MR brain wo/w con DATE OF EXAM: 03/07/2024 COMPARISON: None HISTORY: Seizure TECHNIQUE: Multiplanar, multisequence images of the brain and brainstem is performed without and with IV contras t, utilizing 8 mL intravenous Gadavist . FINDINGS: On the T1-weighted sagittal images, the midline structures including the craniovertebral junction rel ationships are normal. The ventricles, basal cisterns and sulci over the convexities are moderately enlarged consistent with moderate generalized atrophy. There is moderate diffuse multifocal abnormal increased signal intensity in the white matter of both cerebral hemispheres consistent with chronic ischemic white matter demyelination. Based on diffusion-weighted imaging, there is no diffusion restriction or acute ischemic event. There are multiple small focal areas of marked decreased signal intensity on the susceptibility weigh charles images consistent with tiny remote microhemorrhages scattered throughout both cerebral hemisphere s.. There are 2 larger areas of remote hemorrhages in the right frontal white matter and within the l eft occipital white matter both measuring approximately 10 to 11 mm. Following contrast administration, there is no pathological enhancement throughout the brain ellisy ma. IMPRESSION: 1. Moderate generalized atrophy and moderate chronic ischemic white matter demyelination. 2. Multiple remote white matter microhemorrhages as described above. 3. No acute ischemic event. 4. No pathological enhancement. 5. No mass, mass effect or shift of the midline structures.
--- NOTE | 2024-03-08 00:49 | CT ---
EXAM: CT Head Without Intravenous Contrast CLINICAL HISTORY: ITS.REASON CT Reason: brain bleed on mri TECHNIQUE: Axial computed tomography images of the head/brain without intravenous contrast. CTDI is 49.1 mGy and DLP is 1185.4 mGy-cm. This CT exam was performed using one or more of the following dose reduction techniques: automated exposure control, adjustment of the mA and/or kV according to patient size, and/or use of iterative reconstruction technique. COMPARISON: Comparison made to prior brain MRI from March 07, 2024. FINDINGS: Brain: Unremarkable. No hemorrhage. No significant white matter disease. No edema. Ventricles: Unremarkable. No ventriculomegaly. Bones/joints: Unremarkable. No acute fracture. Soft tissues: Unremarkable. Sinuses: Unremarkable as visualized. No acute sinusitis. Mastoid air cells: Unremarkable as visualized. No mastoid effusion. IMPRESSION: No evidence of acute intracranial pathology. The areas of hemosiderin deposition demonstrated on the MRI are not evident on head CT.
[2024-03-08 03:43] VITALS: RESP 16
--- NOTE | 2024-03-08 04:34 | P.PN ---
Subjective Progress Note Date: 03/07/24 Patient is a 63-year-old male with a past medical history of alcohol abuse presents to ER due to altered mental status. Patient states that she was at home and became unsteady while he was was going inside and suddenly fell on the side and had a laceration on the right eyebrow. Patient was witnessed by history bystanders. Patient was also had having altered consciousness and suspected seizures. EMS was called and patient was brought to ER. Patient was obtunded with rapid respirations and tachycardia. Patient otherwise does not drink about 1 to 2 pint a day. Patient became more conscious and back to his baseline while in the ER. Denies any recent illnesses. No complaints of chest pain or shortness of breath. Denies any focal weakness. No leg swelling. CT head and cervical spine showed no evidence of intracranial acute process. Nonspecific white matter changes likely secondary to chronic small ischemic disease. No evidence of cervical spine fracture. Mild multilevel degenerative disc disease. EKG showed atrial flutter/tachycardia with rapid ventricular response. Laboratory data showed WBC 10.8 hemoglobin 16.5 and MCV 112.7 and platelets 278 Sodium 141 potassium 4.2 chloride 97 bicarb is less than 5 BUN 10 and creatinine 1.38 and blood sugar 233 Lactic acid greater than 24 calcium 10.3 and magnesium 1.6. Bili total bili 2.2 ALT 106 AST 117 and alk phos 106 and serum alcohol is 10. 03/05/2024 Patient is seen in follow-up today continues to be in the ER as a hold with cardiology as well as neurology following. Patient is maintained on IV Keppra along with CIWA protocol and patient required 1 dose of IV Ativan. No further seizure-like activity noted at this time and EEG along with MRI of the brain is scheduled and pending. Patient to continue with seizure precautions. Patient also reports has not been up and out of the bed and will have PT/OT therapy evaluate the patient. Patient is currently afebrile with no reports of chest pain or shortness of breath. Patient denies palpitations and no reports of nausea or vomiting. Will also add Librium taper. Replace electrolytes per protocol. Follow-up on repeat labs in the a.m. 03/06/2024 Patient is seen in follow-up today being followed by neurology along with cardiology. Patient is scheduled to undergo 2D echo as well as an MRI of the brain. Patient did undergo EEG which was normal with neurology following and titrating the dose of Keppra. Continues to currently await MRI of the brain which is pending. Per nursing staff there is no current time set for when the MRI will be performed. Patient reports to feeling significantly improved and would like to go home. Cardiology following as well and will discuss with consultations regarding discharge planning. 03/07/2024 Patient is seen in follow-up continues to await for MRI with neurology following closely undergoing further neurological workup. Patient is continued on Keppra with no seizure activity noted. Patient reports to feeling well and would like to go home. Patient does not appear to be actively withdrawing and is maintaine d on CIWA protocol as needed. Continue Librium taper. Discussed with neurology if MRI is negative patient is to continue on Keppra with close outpatient follow-up with neurology. Will await MRI and discussed with patient regarding discharge planning. Patient is agreeable at this time. No reports of chest pain or shortness of breath. Patient denies any dizziness, lightheadedness, visual disturbances at this time. Patient is tolerating diet with no reported nausea or vomiting. Review of systems: Constitutional: No reports of fatigue, fever, or chills Cardiovascular: No reports of chest pain or palpitations Respiratory: No reports of shortness of breath or cough GI: No reports of nausea, vomiting, or diarrhea : No reports of dysuria or retention Neurovascular: No reports of generalized weakness, reports some chronic knee and leg discomfort All medications have been reviewed PHYSICAL EXAMINATION: Patient is currently sitting up in the chair awake, alert and oriented x 3, no acute distress, well-developed, elderly appearing, unkept. HEENT: Normocephalic. Neck is supple. Pupils reactive. Nostrils clear. Oral cavity is moist. Neck reveals no JVD, carotid bruits, or thyromegaly. CHEST EXAMINATION: Trachea is central. Symmetrical expansion. Lung marcum clear to auscultation and percussion. CARDIAC: S1, S2 are muffled, irregular ABDOMEN: Soft. Obese. Bowel sounds normal. No organomegaly. No abdominal bruits. Extremities: reveal no edema. No clubbing or cyanosis Neurologically awake, alert, oriented x3 with well-coordinated movements. No focal deficits noted, diffusely weak Skin: No rash or skin lesions. Psychiatric: Cooperative. Non-suicidal Musculoskeletal: No joint swelling or deformity. Normal range of motion. Assessment: Altered mental status, multifactorial, suspected seizures, likely secondary to acute alcohol withdrawal EtOH abuse with recent relapse and reports to drinking about 1/5 a day Unsteady gait and status post fall. Severe lactic acidosis, present on admission likely secondary to seizure activity, improved Hypertension history, uncontrolled Possible atrial flutter, cardiology consulted and following making adjustments to medications Suspected new onset seizures versus rule out arrhythmia, likely secondary to alcohol induced Status post fall and laceration on the right eyebrow and back of the head. Acute kidney injury likely prerenal Hyperglycemia Elevated liver enzymes likely secondary to alcohol use Recent abnormal stress test in January 2024 with inducible inferior ischemia Failure of outpatient follow-up Noncompliance with medications Continued ongoing nicotine dependence Hypomagnesemia replaced GI/DVT prophylaxis Full code Plan: Patient being followed by neurology awaiting MRI of the brain for further evaluation. Patient is continued on Keppra and will continue and will also need outpatient follow-up with neurology in the outpatient setting Continue monitoring for any withdrawals and will continue Librium taper and as needed CIWA. Patient does not appear to be actively withdrawing and mentation is baseline. Cardiology following for an arrhythmia. 2D echo is ordered and pending Potassium and magnesium have been replaced per protocol Recommend PT/OT therapy evaluation Continue seizure precautions Due to multiple complex medical issues, prognosis is guarded The impression and plan of care has been dictated by Gaby Vega, Nurse Practitioner as directed. Dr. Anushka MD I have performed a history and examination and MDM of this patient, discussed the same with the dictator, and agree with the dictator's assessment and plan as written ,documented as a scribe. Based on total visit time, I have performed more than 50% of the visit. Objective - Vital Signs Vital signs: Vital Signs Temp 97.9 F 03/07/24 09:00 Pulse 86 03/07/24 09:00 Resp 18 03/07/24 09:00 BP 126/88 03/07/24 09:00 Pulse Ox 95 03/07/24 09:00 FiO2 Intake & Output 03/06/24 03/07/24 03/07/24 18:59 06:59 18:59 Intake Total 894 128 Balance 894 128 Intake: IV 10 Invasive Line 1 10 Oral 894 118 Other: Voiding Method Toilet Toilet # Voids 3 # Bowel Movements 1 - Labs CBC & Chem 7: 03/06/24 10:35 03/06/24 10:35 Labs: Abnormal Lab Results - Last 24 Hours (Table) 03/06/24 Range/Units 10:35 MCV 101.7 H (80.0-100.0) fL
[2024-03-08 06:58] LABS: INR 0.9 (<1.2); Partial Thromboplastin Time 22.5 sec (22.0-30.0); Prothrombin Time 10.5 sec (10.0-12.5)
[2024-03-08 08:35] LABS: Basophils # (A) 0.06 X 10*3/uL (0.00-0.10); Eosinophils # (A) 0.24 X 10*3/uL (0.04-0.35); Eosinophils % (A) 3.9 %; HCT 43.7 % (39.6-50.0); HGB 14.4 g/dL (13.0-17.0); Lymphocytes # (A) 2.21 X 10*3/uL (0.90-5.00); Lymphocytes % (A) 35.5 %; MCH 32.7 pg (27.0-32.0); MCV 99.1 FL (80.0-97.0); Mean Platelet Volume 9.7 FL (9.5-12.2); Monocytes # (A) 0.66 X 10*3/uL (0.20-1.00); Monocytes % (A) 10.6 %; NRBC Per 100 WBC 0 X 10*3/uL (0.00-0.01); Neutrophils # (A) 3.03 X 10*3/uL (1.80-7.70); Neutrophils % (A) 48.5 %; Platelet Count 206 X 10*3/uL (140-440); RBC 4.41 X 10*6/uL (4.40-5.60); RDW 13.4 % (11.5-14.5); WBC 6.23 X 10*3/uL (4.50-10.00)
[2024-03-08 09:05] VITALS: BP 121/86; PULSE 87; TEMP 99
[2024-03-08 10:33] LABS: Blood Urea Nitrogen 14.8 mg/dL (9.0-27.0); Carbon Dioxide 24.5 mmol/L (21.6-31.8); Chloride 102 mmol/L (96-109); Glucose 101 mg/dL (70-110); Magnesium 1.6 mg/dL (1.5-2.4); Potassium 4.2 mmol/L (3.5-5.5); Sodium 139 mmol/L (135-145)
[2024-03-08 12:00] LABS: Glucose,Whole Blood 98 mg/dL (70-110)
[2024-03-08 14:01] VITALS: BMI 33.3
--- NOTE | 2024-03-08 15:42 | P.PN ---
Subjective Progress Note Date: 03/08/24 I am following-up with patient and he feels he is doing better. Objective - Vital Signs Vital signs: Vital Signs Temp 99 F 03/08/24 07:41 Pulse 87 03/08/24 07:41 Resp 16 03/08/24 07:41 BP 121/86 03/08/24 07:41 Pulse Ox 97 03/08/24 07:41 FiO2 Intake & Output 03/07/24 03/08/24 03/08/24 18:59 06:59 18:59 Intake Total 604 Balance 604 Weight 102.2 kg 102.2 kg Intake: IV 10 Invasive Line 1 10 Oral 594 Other: Voiding Method Toilet Toilet # Voids 3 2 1 # Bowel Movements 1 - Exam GENERAL: The patient is sitting in a recliner chair and is not in acute distress. HENT: Has bruise on right lateral side of face. NEUROLOGICAL: Higher mental function: The patient is awake, alert, oriented to self, place and time. Patient is following commands. No aphasia and no neglect. Cranial nerves: The pupils are round, equal and reactive to light and accommodation. Visual marcum are full to confrontation throughout. Extraocular movement is intact no nystagmus is noted. Facial sensation is normal to touch throughout. The facial strength is normal throughout. Hearing is normal bilaterally to hand rub. Tongue is midline and moved [id number] without any difficulty. No dysarthria is noted. Shoulder shrug is normal bilaterally. Motor: The strength is 5 over 5 throughout. Normal tone and bulk. Cerebellum: Normal finger to nose heel to payne bilaterally. Sensation: Sensation is normal to touch throughout. Reflexes (right/left): 2+ Plantars are downgoing bilaterally. Some of the workup during this hospital visit consisted of: Vitamin B12 is 506 Serum folate is 10.8 Ammonia level is 10. Creatinine is 1.49 Serum glucose 233 AST of 117 ALT of 107 Serum alcohol is less than 10 Urine drug screen is positive for benzos Initial plasma lactic acid vein is more than 20 4 repeat is 3.9 and the most recent has normalized. CT of the head and cervical spine is reported as no acute intracranial process. Nonspecific white matter changes, likely secondary due to chronic small vessel ischemic disease. No evidence of cervical spine fracture. Mild multilevel degenerative disc disease. Reviewed the CT of the head and agree with the report. Routine EEG is normal. MRI Brain: Reported as moderate generalized atrophy and moderate chronic ischemic white matter demyelination. Multiple remote white matter micr ohemorrhages. No acute ischemic event. No pathological enhancement. No mass, mass effect or shift of the midline structures. Therefore got repeat CT head to assess if any bleed on CT. NO evidence of acute intracranial pathology. The area of hemosiderin deposition demonstrated on MRI are not evident on head CT. - Labs CBC & Chem 7: 03/08/24 06:32 03/08/24 06:32 Labs: Abnormal Lab Results - Last 24 Hours (Table) 03/08/24 03/08/24 Range/Units 06:32 06:32 MCV 99.1 H (80.0-97.0) FL MCH 32.7 H (27.0-32.0) pg Anion Gap 12.50 H (4.00-12.00) mmol/L Assessment and Plan Assessment: This is a 63-year-old gentleman with significant alcohol use who presents b ecause of seizure-like activity. Patient denies of any history of seizure. His serum alcohol level was less than 10. New onset seizure and it seems provoked due to alcohol withdrawal. Patient stat es he had mild tremors in the past with alcohol use but not to this extent and denies any history of seizures. Routine EEG is normal. MRI Brain showed Multiple remote white matter microhemorrhages but no acute ischemia or enhancement---for past couple days patient has not had further seizure and is table. Elevated liver function test likely due to alcohol use Elevated serum lactic acid vein that reads resolved due to the seizure Abnormal stress test with inducible inferior ischemia Significant alcohol use Plan: Continue Keppra 500 mg twice daily and the patient is agreement of being on Keppra (was started during this hospital visit). I notified him of the side effects of the Keppra and so far no side effects he is having. MRI Brain showed Multiple remote white matter microhemorrhages but no acute ischemia or enhancement Recommend the follow-up as outpatient and recommend surveillance of microhemorrhage. Consider repeat MRI Brain within 6 months or 1 year if no worsening condition or earlier if new deficits. Patient is on ASA 81mg and will not hold since microhemorrhage seems chronic and not seen on CT brain. It is felt the benefit outweigh the risk of being on antiplatelets. Seizure precautions seizure pads Patient is on thiamine 100 mg daily. Per the [place] law because of the seizure, to avoid driving for 6 months until seizure-free, avoid heights, avoid swimming unassisted or using heavy machinery. Patient was counseled on alcohol cessation Patient is on CIWA protocol Will defer the rest of the medical management to primary team and other specialists Upon discharge, recommend the patient to follow-up with neurologist as outpatient within 2 weeks. The plan is discussed with patient and N.P. of primary team. There is no further neurological work-up. Will sign off. Please reconsult if needed. Time with Patient: Less than 30
--- NOTE | 2024-03-11 09:37 | P.DS ---
Providers Date of admission: 03/04/24 15:41 Expected date of discharge: 03/08/24 Attending physician: Canelo Reveles Consults: 03/04/24 15:15 Consult Physician Routine Consulting Provider: Declan Abdul Consult Reason/Comments: Seizure Do you want consulting provider notified?: Yes 03/05/24 10:36 Consult Physician Routine Consulting Provider: Alex Machado Consult Reason/Comments: Atrial flutter Do you want consulting provider notified?: Yes Primary care physician: Iveth Goode [facility] Course: Final diagnosis Altered mental status, multifactorial, suspected seizures, likely secondary to acute alcohol withdrawal EtOH abuse with recent relapse and reports to drinking about 1/5 a day Unsteady gait and status post fall. Severe lactic acidosis, present on admission likely secondary to seizure activity, improved Hypertension history, uncontrolled Possible atrial flutter, cardiology consulted and following making adjustments to medications Suspected new onset seizures versus rule out arrhythmia, likely secondary to alcohol induced Status post fall and laceration on the right eyebrow and back of the head. Acute kidney injury likely prerenal Hyperglycemia Elevated liver enzymes likely secondary to alcohol use Recent abnormal stress test in January 2024 with inducible inferior ischemia Failure of outpatient follow-up Noncompliance with medications Continued ongoing nicotine dependence Hypomagnesemia replaced GI/DVT prophylaxis Full code Discharge disposition Patient is being discharged in a stable condition with guarded prognosis to home. Patient will follow-up with Dr. Eddie Gonzalez in the outpatient setting upon discharge. Patient is to continue with current medications and close outpatient follow-up with neurology as well as cardiology as scheduled. Total time taken is greater than 35 minutes. Hospital course This is a 63-year-old male who was recently admitted with acute altered mental status with new onset concerns for seizures with no history of seizures previously. Patient does drink alcohol almost daily also having concerns for acute alcohol withdrawal maintained on CIWA protocol. Patient evaluated by cardiology as well as neurology and started on Keppra. Patient did undergo EEG along with MRI of the brain and EEG was negative. Patient agreeable to continue with Keppra with close outpatient follow-up and discuss weaning in the outpatient setting. Patient maintained on CIWA protocol overall tolerating well and will continue with Librium taper on discharge. Patient does not want to go to rehab but knows he needs to quit. Patient has been given resources for outpatient AA. Patient's MRI of the brain showing moderate generalized atrophy with moderate chronic ischemic white matter demyelination, multiple remote white matter microhemorrhages with no acute ischemic event and no pathological enhancement with no mass affect or midline shift. Discussed with neurology and underwent repeat CT which was negative for showing these microhemorrhages. Patient will continue on aspirin and close outpatient follow-up with neurology. Patient reports to feeling much improved and would like to go home. Patient has been cleared by consultations. Please refer to other consultation notes for further HPI. Currently no reports of chest pain, shortness of breath, or palpitations. Patient is afebrile. No reports of nausea or vomiting and patient is tolerating diet. Patient will be discharged home today. Guarded prognosis Physical exam: Gen: This is a 63-year-old male who is awake, alert and oriented x 3, well-de veloped, well-nourished, elderly appearing, obese HEENT: Head is atraumatic, normocephalic. Pupils equal, round. Sclerae is anicteric. NECK: Supple. No JVD. No lymphadenopathy. No thyromegaly. LUNGS: Clear to auscultation. No wheezes or rhonchi. No intercostal retractions. HEART: Regular rate and rhythm. No murmur. ABDOMEN: Soft. Bowel sounds are present. No masses. No tenderness. EXTREMITIES: No pedal edema. No calf tenderness. NEUROLOGICAL: Patient is awake, alert and oriented x3. Cranial nerves 2 through 12 are grossly intact. Please refer to medication reconciliation sheet for a list of medications. The impression and plan of care has been dictated by Gaby Vega, Nurse Practitioner as directed. Dr. Carlos MD I have performed a history and examination and MDM of this patient, discussed the same with the dictator, and agree with the dictator's assessment and plan as written ,documented as a scribe. Based on total visit time, I have performed more than 50% of the visit. Patient Condition at Discharge: Stable Plan - Discharge Summary New Discharge Prescriptions: New Aspirin 81 mg PO DAILY #30 tab Losartan [Cozaar] 25 mg PO DAILY #30 tab levETIRAcetam [Keppra] 500 mg PO Q12HR #60 tab chlordiazePOXIDE HCl [Librium] 10 mg PO TID #6 cap Ibuprofen [Motrin] 400 mg PO Q6HR PRN tab PRN Reason: Pain amLODIPine [Norvasc] 10 mg PO DAILY #30 tab Acetaminophen Tab [Tylenol] 650 mg PO Q6HR PRN tab PRN Reason: Fever And/ Or Pain Metoprolol Succinate (ER) [Toprol XL] 25 mg PO DAILY #30 tab Thiamine [Vitamin B-1] 100 mg PO DAILY #30 tab Discharge Medication List Acetaminophen Tab [Tylenol] 650 mg PO Q6HR PRN tab 03/08/24 [Rx] Aspirin 81 mg PO DAILY #30 tab 03/08/24 [Rx] Ibuprofen [Motrin] 400 mg PO Q6HR PRN tab 03/08/24 [Rx] Losartan [Cozaar] 25 mg PO DAILY #30 tab 03/08/24 [Rx] Metoprolol Succinate (ER) [Toprol XL] 25 mg PO DAILY #30 tab 03/08/24 [Rx] Thiamine [Vitamin B-1] 100 mg PO DAILY #30 tab 03/08/24 [Rx] amLODIPine [Norvasc] 10 mg PO DAILY #30 tab 03/08/24 [Rx] chlordiazePOXIDE HCl [Librium] 10 mg PO TID #6 cap 03/08/24 [Rx] levETIRAcetam [Keppra] 500 mg PO Q12HR #60 tab 03/08/24 [Rx] Follow up Appointment(s)/Referral(s): Ezekiel Lord DO [STAFF PHYSICIAN] - 1 Week Iveth Goode MD [Primary Care Provider] - 1 Week Yaya Rizo MD [Medical Doctor] - 1 Week Patient Instructions/Handouts: Abuse of Alcohol (DC), Alcohol Withdrawal (DC) Activity/Diet/Wound Care/Special Instructions: Activity limited until follow-up Follow-up with primary care provider on discharge Follow-up with cardiology as discussed Continue taking medications as prescribed Follow-up neurology outpatient Continue to avoid all alcohol intake Continue Librium taper until finished and do not drink alcohol with this medication Discharge/Stand Alone Forms: AA Meetings [facility], Who Do I Call?, Outpatient Counseling, Inp Substance Abuse Facilities, Personal [facility] [employer] Discharge Disposition: HOME SELF-CARE
== END 2024-03-08 16:53 | disposition home or self-care (01) | DRG 775 ==
LOC: EDBD → SUPCPDRO 11:28 → EC 11:28 → MERGE 11:28 → 3SCARD 15:41 → 4SSUR 03-07 19:17
PROVIDERS: ADMIT Internal Medicine; ATTEND Internal Medicine
DX: F10.231 Alcohol dependence with withdrawal delirium (principal); N17.9 Acute kidney failure, unspecified; E87.20 Acidosis, unspecified; S09.90XA Unspecified injury of head, initial encounter; R56.9 Unspecified convulsions; I48.92 Unspecified atrial flutter; I11.9 Hypertensive heart disease without heart failure; Y90.0 Blood alcohol level of less than 20 mg/100 ml; S01.111A Laceration without foreign body of right eyelid and periocular area, initial encounter; E78.5 Hyperlipidemia, unspecified; R73.9 Hyperglycemia, unspecified; E83.42 Hypomagnesemia; M50.30 Other cervical disc degeneration, unspecified cervical region; R26.81 Unsteadiness on feet; R74.8 Abnormal levels of other serum enzymes; Z91.148 Patient's other noncompliance with medication regimen for other reason; F17.210 Nicotine dependence, cigarettes, uncomplicated; Z71.6 Tobacco abuse counseling; Z71.3 Dietary counseling and surveillance; Z79.899 Other long term (current) drug therapy; W18.30XA Fall on same level, unspecified, initial encounter; Y92.038 Other place in apartment as the place of occurrence of the external cause
CPT/HCPCS: 36415; 70450; 70553; 72125; 80048; 80053; 80306; 80320; 81001; 82140; 82607; 82746; 83036; 83605; 83735; 84443; 85025; 85610; 85730; 93005; 93306; 95816; 96361; 96365; 96372; 96375; 96376; 99291

== ENCOUNTER 2024-09-24 09:44 | Inpatient (IN) | payer MEDICARE, OTHER ==
[2024-09-24] MEDS: SODIUM CHLORIDE 0.9% 1,000 ML IV ONE (10:25)
[2024-09-24 11:08] LABS: Basophils # (A) 0.1 k/uL (0-0.2); Basophils % (A) 1 %; Eosinophils # (A) 0.1 k/uL (0-0.7); Eosinophils % (A) 2 %; HGB 15.6 gm/dL (13.0-17.5); Lymphocytes # (A) 0.7 k/uL (1.0-4.8); Lymphocytes % (A) 14 %; MCH 33.3 pg (25.0-35.0); MCHC 34.6 g/dL (31.0-37.0); MCV 96.2 fL (80.0-100.0); Mean Platelet Volume 7.5; Monocytes # (A) 0.2 k/uL (0-1.0); Monocytes % (A) 3 %; Neutrophils # (A) 4.2 k/uL (1.3-7.7); Neutrophils % (A) 79 %; Platelet Count 344 k/uL (150-450); RBC 4.67 m/uL (4.30-5.90); WBC 5.3 k/uL (3.8-10.6)
[2024-09-24 11:21] LABS: AST 104 U/L (17-59); African American GFR (CKD) 71 (>60 ml/min/1.73 sqM); Albumin 4.8 g/dL (3.5-5.0); Alcohol <10 mg/dL; Alkaline Phosphatase 75 U/L (38-126); Anion Gap 25 mmol/L; Blood Urea Nitrogen 8 mg/dL (9-20); Calcium 8.9 mg/dL (8.4-10.2); Carbon Dioxide 10 mmol/L (22-30); Chloride 97 mmol/L (98-107); Glucose 194 mg/dL (74-99); Non-African American GFR(CKD) 62 (>60 ml/min/1.73 sqM); Potassium 3.8 mmol/L (3.5-5.1); Sodium 132 mmol/L (137-145); Total Bilirubin 2.3 mg/dL (0.2-1.3); Total Protein 7.5 g/dL (6.3-8.2)
[2024-09-24 11:27] LABS: ALT 68 U/L (4-49)
[2024-09-24 11:28] LABS: INR 1.1 (<1.2); Prothrombin Time 11.7 sec (10.0-12.5)
[2024-09-24 11:31] LABS: Lactic Acid, Venous 13.9 mmol/L (0.7-2.0)
[2024-09-24 11:42] LABS: Partial Thromboplastin Time 20.3 sec (22.0-30.0)
--- NOTE | 2024-09-24 12:07 | CT ---
EXAMINATION TYPE: CT brain wo con CT DLP: 1168.9 mGycm, Automated exposure control for dose reduction was used. DATE OF EXAM: 09/24/2024 11:54 AM COMPARISON: CT brain C-spine 03/04/2024, CT brain 03/07/2024, MRI brain 03/07/2024 CLINICAL INDICATION:Male, 64 years old with history of Altered mental status, fall, seizure, FALL,AMS TECHNIQUE: Brain: Multiple axial CT images of the brain were obtained without IV contrast. . Coronal and sagitta l reformats reviewed. FINDINGS: Brain: Extra-axial spaces: No abnormal extra-axial fluid collections. Falx calcifications are present. Ventricular system: Within normal limits Cerebral parenchyma: Mild diffuse cerebral atrophy. No acute intraparenchymal hemorrhage or mass effe ct. Questionable region of liu-white junction loss with hypoattenuation within the right frontal lo be versus artifact. The remaining liu-white junction is well differentiated. Scattered hypoattenuati ng areas are seen within the periventricular subcortical white matter. Cerebellum: Unremarkable. Mass effect: No evidence of midline shift. Intracranial vasculature: Atherosclerotic calcifications of the intracranial vessels. Soft tissues: Normal. Calvarium/osseous structures: No depressed skull fracture. Paranasal sinuses and mastoid air cells: Clear Visualized orbits: Orbital contents are intact. IMPRESSION: 1. Questionable ischemia versus artifact within the right frontal lobe. Further evaluation with MRI i s recommended. 2. Nonspecific white matter changes, likely secondary to chronic small vessel ischemic disease. [facility], , 09/24/2024 12:04 PM
--- NOTE | 2024-09-24 12:49 | XR ---
EXAMINATION TYPE: XR chest 2V DATE OF EXAM: 09/24/2024 11:56 AM COMPARISON: Chest radiographs from 10/02/2024 CLINICAL INDICATION: Male, 64 years old with history of altered mental status; [facility] TECHNIQUE: XR chest 2V Frontal and lateral views of the chest. FINDINGS: Lungs/Pleura: There is no evidence of pleural effusion, focal consolidation, or pneumothorax. Pulmonary vascularity: Unremarkable. Heart/mediastinum: Cardiomediastinal silhouette is unremarkable. Musculoskeletal: No acute osseous pathology. IMPRESSION: No acute cardiopulmonary disease/process. [facility], , 09/24/2024 12:46 PM
[2024-09-24] MEDS ORDERED: LORazepam 2 MG/ML INJ IV PRN ×2 (13:25)
[2024-09-24] MEDS ORDERED: NALOXONE 0.4 MG/ML 1 ML VIAL IV PRN (13:27)
[2024-09-24] MEDS ORDERED: ONDANSETRON 4 MG/2 ML VIAL IVP PRN (13:27)
--- NOTE | 2024-09-24 13:27 | ED ---
General Adult HPI - General Chief complaint: Fall Stated complaint: fall,seizure Time Seen by Provider: 09/24/24 10:00 Source: EMS Mode of arrival: EMS Limitations: altered mental status - History of Present Illness Initial comments: 64-year-old male who presents to the emergency department for a fall. Patient was trying to get out of his car. This was witnessed by his neighbors. The patient fell but denies having any injuries. EMS helped the patient up. In their arms the patient began having a seizure. It was reported by bystanders as the patient has a seizure history. Seizure lasted 3 to 4 minutes. He was given 5 mg of IM Versed and presents postictal. They report that the patient is an alcoholic and has had alcoholic withdrawal seizures before. Reports to THC use. Denies head injury. Patient denies any complaints including chest pain, shortness of breath, pain in his extremities. No other alleviating, precipitating or modifying factors - Related Data Previous Rx's Medication Instructions Recorded Aspirin 81 mg PO DAILY #30 tab 09/25/24 Famotidine [Pepcid] 20 mg PO DAILY #30 tab 09/25/24 Multivitamins, Thera [Multivitamin 1 each PO DAILY@1200 #30 tab 09/25/24 (formulary)] Thiamine [Vitamin B-1] 100 mg PO DAILY #30 tab 09/25/24 levETIRAcetam [Keppra] 750 mg PO Q12HR #60 tab 09/25/24 Acetaminophen Tab [Tylenol] 650 mg PO Q6HR PRN tab 09/26/24 Losartan [Cozaar] 25 mg PO BID #60 tab 09/26/24 amLODIPine [Norvasc] 5 mg PO DAILY #30 tab 09/26/24 Allergies Allergy/AdvReac Type Severity Reaction Status Date / Time No Known Allergies Allergy Verified 09/24/24 12:23 Review of Systems ROS Statement: Those systems with pertinent positive or pertinent negative responses have been documented in the HPI. ROS Other: All systems not noted in ROS Statement are negative. Past Medical History Past Medical History: Unable to Obtain Additional Past Medical History / Comment(s): gout, past skull fracture (fell off bridge), tingling at times bilateral hands History of Any Multi-Drug Resistant Organisms: None Reported Past Surgical History: Unable to Obtain Additional Past Surgical History / Comment(s): L foot plate/screws, rhinoplasty Past Anesthesia/Blood Transfusion Reactions: No Reported Reaction Past Psychological History: No Psychological Hx Reported Past Alcohol Use History: Abuse, Daily, Heavy Past Drug Use History: Marijuana, Unable to Obtain - Past Family History Mother Family Medical History: Cancer Additional Family Medical History / Comment(s): Pt cannot recall type of cancer. Father Additional Family Medical History / Comment(s): ETOH General Exam Limitations: altered mental status General appearance: alert, lethargic Head exam: Present: atraumatic, normocephalic, normal inspection Eye exam: Present: normal appearance, PERRL, EOMI. Absent: scleral icterus, conjunctival injection, periorbital swelling ENT exam: Present: normal exam, mucous membranes moist Respiratory exam: Present: normal lung sounds bilaterally. Absent: respiratory distress, wheezes, rales, rhonchi, stridor Cardiovascular Exam: Present: normal rhythm, tachycardia GI/Abdominal exam: Present: soft, normal bowel sounds. Absent: distended, tenderness, guarding, rebound, rigid Neurological exam: Present: altered Psychiatric exam: Present: flat affect Skin exam: Present: warm, dry, intact, normal color. Absent: rash Course Vital Signs 09/24/24 09/24/24 09/24/24 09:54 11:22 15:41 Temperature 98.2 F Pulse Rate 128 H 102 H 96 Respiratory 20 18 18 Rate Blood Pressure 172/115 128/90 128/90 O2 Sat by Pulse 94 L 98 98 Oximetry 09/24/24 09/24/24 09/24/24 18:00 20:23 22:00 Temperature Pulse Rate 88 96 102 H Respiratory 18 18 18 Rate Blood Pressure 146/110 160/120 162/88 O2 Sat by Pulse 97 98 Oximetry 09/25/24 09/25/24 09/25/24 02:00 03:00 03:35 Temperature Pulse Rate 92 80 86 Respiratory 18 18 18 Rate Blood Pressure 152/120 151/109 155/95 O2 Sat by Pulse 94 L 96 Oximetry 09/25/24 09/25/24 09/25/24 06:21 11:00 14:08 Temperature Pulse Rate 85 110 H 94 Respiratory 16 18 18 Rate Blood Pressure 137/92 161/119 160/105 O2 Sat by Pulse 96 99 97 Oximetry Medical Decision Making - Medical Decision Making Was pt. sent in by a medical professional or institution (Dr., PA, ARTIST'S MANAGER, urgent care, hospital, or jail...) When possible be specific @ -No Did you speak to anyone other than the patient for history (EMS, parent, family, police, friend...)? What history was obtained from this source @ -Spoke with EMS for history Did you review nursing and triage notes (agree or disagree)? Why? @ -I reviewed and agree with nursing and triage notes Were old charts reviewed (outside hosp., previous admission, EMS record, old EKG, old radiological studies, urgent care reports/EKG's, jail records)? Report findings @ -No old charts were reviewed Differential Diagnosis (chest pain, altered mental status, abdominal pain women, abdominal pain men, vaginal bleeding, weakness, fever, dyspnea, syncope, headache, dizziness, GI bleed, back pain, seizure, CVA, palpatations, mental health, musculoskeletal)? @ -Differential Altered Mental Status: Hypoglycemia, DKA, hypercapnia, ETOH, overdose, CO poisoning, trauma, myxedema coma, HTN encephalopathy, infection, encephalitis, psychosis, intercranial hemorrhage, hepatic encephalopathy, meningitis, CVA, this is not meant to be an all-inclusive list EKG interpreted by me (3pts min.). @ -Yes and demonstrates sinus tachycardia with a rate of 120. AK interval 164. QRS 85. QTc of 396. No acute ST segment elevations or depressions X-rays interpreted by me (1pt min.). @ -Yes and demonstrates no acute process CT interpreted by me (1pt min.). @ -Yes and demonstrates no acute process U/S interpreted by me (1pt. min.). @ -None done What testing was considered but not performed or refused? (CT, X-rays, U/S, lab s)? Why? @ -None What meds were considered but not given or refused? Why? @ -None Did you discuss the management of the patient with other professionals (professionals i.e. EYAD Bee, ARTIST'S MANAGER, lab, RT, psych nurse, social insurance administrator, well testing operator, teacher, plain clothes police officer, casework manager)? Give summary @ -Spoke with Dr. Leung for admission Was smoking cessation discussed for >3mins.? @ -No Was critical care preformed (if so, how long)? @ -No Were there social determinants of health that impacted care today? How? (Homelessness, low income, unemployed, alcoholism, drug addiction, transportation, low edu. Level, literacy, decrease access to med. care, half-way, rehab)? @ -No Was there de-escalation of care discussed even if they declined (Discuss DNR or withdrawal of care, Hospice)? DNR status @ -No What co-morbidities impacted this encounter? (DM, HTN, Smoking, COPD, CAD, Cancer, CVA, ARF, Chemo, Hep., AIDS, mental health diagnosis, sleep apnea, morbid obesity)? @ -Alcohol abuse Was patient admitted / discharged? Hospital course, mention meds given and route, prescriptions, significant lab abnormalities, going to OR and other pertinent info. @ -Upon arrival patient seen and evaluated in bed 26. Thorough history and physical exam was performed. IV access was established. Laboratory studies we re conducted. Chest x-ray was performed. CT brain was performed. Results are discussed with the patient who does become more arousable and is able to answer questions appropriately. I did recommend admission for which the patient was agreeable. He will be placed on CIWA protocol. Neurology will be consulted. Spoke with Dr. Leung for admission Undiagnosed new problem with uncertain prognosis? @ -No Drug Therapy requiring intensive monitoring for toxicity (Heparin, Nitro, Insulin, Cardizem)? @ -No Were any procedures done? @ -No Diagnosis/symptom? @ -Acute fall, acute seizure, history of alcohol abuse, possible alcohol withdrawal seizure Acute, or Chronic, or Acute on Chronic? @ -Acute Uncomplicated (without systemic symptoms) or Complicated (systemic symptoms)? @ -Complicated Side effects of treatment? @ -No Exacerbation, Progression, or Severe Exacerbation? @ -No Poses a threat to life or bodily function? How? (Chest pain, [place], [place], pneumonia, PE, COPD, DKA, ARF, appy, cholecystitis, CVA, Diverticulitis, Homicidal, Suicidal, threat to staff... and all critical care pts) @ -No - Lab Data Result diagrams: 09/25/24 07:03 09/26/24 07:03 Lab Results 09/24/24 09/24/24 09/24/24 Range/Units 11:01 11:01 11:01 WBC 5.3 (3.8-10.6) k/uL RBC 4.67 (4.30-5.90) m/uL Hgb 15.6 (13.0-17.5) gm/dL Hct 45.0 (39.0-53.0) % MCV 96.2 (80.0-100.0) fL MCH 33.3 (25.0-35.0) pg MCHC 34.6 (31.0-37.0) g/dL RDW 13.0 (11.5-15.5) % Plt Count 344 (150-450) k/uL MPV 7.5 Neutrophils % 79 % Lymphocytes % 14 % Monocytes % 3 % Eosinophils % 2 % Basophils % 1 % Neutrophils # 4.2 (1.3-7.7) k/uL Lymphocytes # 0.7 L (1.0-4.8) k/uL Monocytes # 0.2 (0-1.0) k/uL Eosinophils # 0.1 (0-0.7) k/uL Basophils # 0.1 (0-0.2) k/uL PT 11.7 (10.0-12.5) sec INR 1.1 (<1.2) APTT 20.3 L (22.0-30.0) sec Sodium 132 L (137-145) mmol/L Potassium 3.8 (3.5-5.1) mmol/L Chloride 97 L (98-107) mmol/L Carbon Dioxide 10 L (22-30) mmol/L Anion Gap 25 mmol/L BUN 8 L (9-20) mg/dL Creatinine 1.23 (0.66-1.25) mg/dL Est GFR (CKD-EPI)AfAm 71 (>60 ml/min/1.73 sqM) Est GFR (CKD-EPI)NonAf 62 (>60 ml/min/1.73 sqM) Glucose 194 H (74-99) mg/dL POC Glucose (mg/dL) (70-110) mg/dL POC Glu Repair Technician ID Lactic Ac Sepsis Rflx Plasma Lactic Acid Chau (0.7-2.0) mmol/L Calcium 8.9 (8.4-10.2) mg/dL Magnesium (1.6-2.3) mg/dL Total Bilirubin 2.3 H (0.2-1.3) mg/dL AST 104 H (17-59) U/L ALT 68 H (4-49) U/L Alkaline Phosphatase 75 (38-126) U/L Ammonia (<30) umol/L Troponin I (0.000-0.034) ng/mL Total Protein 7.5 (6.3-8.2) g/dL Albumin 4.8 (3.5-5.0) g/dL Triglycerides (0.00-149.00) mg/dL Cholesterol (0.00-200.00) mg/dL LDL Cholesterol, Calc (0.0-131.0) mg/dL VLDL Cholesterol, Calc (5.00-40.00) mg/dL HDL Cholesterol (40.00-60.00) mg/dL Cholesterol/HDL Ratio Ratio Urine Color Urine Appearance (Clear) Urine pH (5.0-8.0) Ur Specific [place] (1.001-1.035) Urine Protein (Negative) Urine Glucose (UA) (Negative) Urine Ketones (Negative) Urine Blood (Negative) Urine Nitrite (Negative) Urine Bilirubin (Negative) Urine Urobilinogen (<2.0) mg/dL Ur Leukocyte Esterase (Negative) Urine RBC (0-5) /hpf Urine WBC (0-5) /hpf Hyaline Casts (0-2) /lpf Urine Mucus (None) /hpf Urine Opiates Screen (NotDetected) Ur Oxycodone Screen (NotDetected) Urine Methadone Screen (NotDetected) Ur Barbiturates Screen (NotDetected) U Tricyclic Antidepress (NotDetected) Ur Phencyclidine Scrn (NotDetected) Ur Amphetamines Screen (NotDetected) U Methamphetamines Scrn (NotDetected) U Benzodiazepines Scrn (NotDetected) Urine Cocaine Screen (NotDetected) U Marijuana (THC) Screen (NotDetected) Serum Alcohol <10 mg/dL 09/24/24 09/24/24 09/24/24 Range/Units 11:01 11:01 11:31 WBC (3.8-10.6) k/uL RBC (4.30-5.90) m/uL Hgb (13.0-17.5) gm/dL Hct (39.0-53.0) % MCV (80.0-100.0) fL MCH (25.0-35.0) pg MCHC (31.0-37.0) g/dL RDW (11.5-15.5) % Plt Count (150-450) k/uL MPV Neutrophils % % Lymphocytes % % Monocytes % % Eosinophils % % Basophils % % Neutrophils # (1.3-7.7) k/uL Lymphocytes # (1.0-4.8) k/uL Monocytes # (0-1.0) k/uL Eosinophils # (0-0.7) k/uL Basophils # (0-0.2) k/uL PT (10.0-12.5) sec INR (<1.2) APTT (22.0-30.0) sec Sodium (137-145) mmol/L Potassium (3.5-5.1) mmol/L Chloride (98-107) mmol/L Carbon Dioxide (22-30) mmol/L Anion Gap mmol/L BUN (9-20) mg/dL Creatinine (0.66-1.25) mg/dL Est GFR (CKD-EPI)AfAm (>60 ml/min/1.73 sqM) Est GFR (CKD-EPI)NonAf (>60 ml/min/1.73 sqM) Glucose (74-99) mg/dL POC Glucose (mg/dL) (70-110) mg/dL POC Glu Repair Technician ID Lactic Ac Sepsis Rflx Y Plasma Lactic Acid Chau 13.9 H* (0.7-2.0) mmol/L Calcium (8.4-10.2) mg/dL Magnesium (1.6-2.3) mg/dL Total Bilirubin (0.2-1.3) mg/dL AST (17-59) U/L ALT (4-49) U/L Alkaline Phosphatase (38-126) U/L Ammonia 103 H (<30) umol/L Troponin I <0.012 (0.000-0.034) ng/mL Total Protein (6.3-8.2) g/dL Albumin (3.5-5.0) g/dL Triglycerides (0.00-149.00) mg/dL Cholesterol (0.00-200.00) mg/dL LDL Cholesterol, Calc (0.0-131.0) mg/dL VLDL Cholesterol, Calc (5.00-40.00) mg/dL HDL Cholesterol (40.00-60.00) mg/dL Cholesterol/HDL Ratio Ratio Urine Color Urine Appearance (Clear) Urine pH (5.0-8.0) Ur Specific [place] (1.001-1.035) Urine Protein (Negative) Urine Glucose (UA) (Negative) Urine Ketones (Negative) Urine Blood (Negative) Urine Nitrite (Negative) Urine Bilirubin (Negative) Urine Urobilinogen (<2.0) mg/dL Ur Leukocyte Esterase (Negative) Urine RBC (0-5) /hpf Urine WBC (0-5) /hpf Hyaline Casts (0-2) /lpf Urine Mucus (None) /hpf Urine Opiates Screen (NotDetected) Ur Oxycodone Screen (NotDetected) Urine Methadone Screen (NotDetected) Ur Barbiturates Screen (NotDetected) U Tricyclic Antidepress (NotDetected) Ur Phencyclidine Scrn (NotDetected) Ur Amphetamines Screen (NotDetected) U Methamphetamines Scrn (NotDetected) U Benzodiazepines Scrn (NotDetected) Urine Cocaine Screen (NotDetected) U Marijuana (THC) Screen (NotDetected) Serum Alcohol mg/dL 09/24/24 09/24/24 09/24/24 Range/Units 13:52 14:07 15:41 WBC (3.8-10.6) k/uL RBC (4.30-5.90) m/uL Hgb (13.0-17.5) gm/dL Hct (39.0-53.0) % MCV (80.0-100.0) fL MCH (25.0-35.0) pg MCHC (31.0-37.0) g/dL RDW (11.5-15.5) % Plt Count (150-450) k/uL MPV Neutrophils % % Lymphocytes % % Monocytes % % Eosinophils % % Basophils % % Neutrophils # (1.3-7.7) k/uL Lymphocytes # (1.0-4.8) k/uL Monocytes # (0-1.0) k/uL Eosinophils # (0-0.7) k/uL Basophils # (0-0.2) k/uL PT (10.0-12.5) sec INR (<1.2) APTT (22.0-30.0) sec Sodium (137-145) mmol/L Potassium (3.5-5.1) mmol/L Chloride (98-107) mmol/L Carbon Dioxide (22-30) mmol/L Anion Gap mmol/L BUN (9-20) mg/dL Creatinine (0.66-1.25) mg/dL Est GFR (CKD-EPI)AfAm (>60 ml/min/1.73 sqM) Est GFR (CKD-EPI)NonAf (>60 ml/min/1.73 sqM) Glucose (74-99) mg/dL POC Glucose (mg/dL) (70-110) mg/dL POC Glu Repair Technician ID Lactic Ac Sepsis Rflx Plasma Lactic Acid Chau 1.8 (0.7-2.0) mmol/L Calcium (8.4-10.2) mg/dL Magnesium 2.1 (1.6-2.3) mg/dL Total Bilirubin (0.2-1.3) mg/dL AST (17-59) U/L ALT (4-49) U/L Alkaline Phosphatase (38-126) U/L Ammonia (<30) umol/L Troponin I (0.000-0.034) ng/mL Total Protein (6.3-8.2) g/dL Albumin (3.5-5.0) g/dL Triglycerides (0.00-149.00) mg/dL Cholesterol (0.00-200.00) mg/dL LDL Cholesterol, Calc (0.0-131.0) mg/dL VLDL Cholesterol, Calc (5.00-40.00) mg/dL HDL Cholesterol (40.00-60.00) mg/dL Cholesterol/HDL Ratio Ratio Urine Color Urine Appearance (Clear) Urine pH (5.0-8.0) Ur Specific [place] (1.001-1.035) Urine Protein (Negative) Urine Glucose (UA) (Negative) Urine Ketones (Negative) Urine Blood (Negative) Urine Nitrite (Negative) Urine Bilirubin (Negative) Urine Urobilinogen (<2.0) mg/dL Ur Leukocyte Esterase (Negative) Urine RBC (0-5) /hpf Urine WBC (0-5) /hpf Hyaline Casts (0-2) /lpf Urine Mucus (None) /hpf Urine Opiates Screen Not Detected (NotDetected) Ur Oxycodone Screen Not Detected (NotDetected) Urine Methadone Screen Not Detected (NotDetected) Ur Barbiturates Screen Not Detected (NotDetected) U Tricyclic Antidepress Not Detected (NotDetected) Ur Phencyclidine Scrn Not Detected (NotDetected) Ur Amphetamines Screen Not Detected (NotDetected) U Methamphetamines Scrn Not Detected (NotDetected) U Benzodiazepines Scrn Not Detected (NotDetected) Urine Cocaine Screen Not Detected (NotDetected) U Marijuana (THC) Screen Not Detected (NotDetected) Serum Alcohol mg/dL 09/24/24 09/25/24 09/25/24 Range/Units 15:41 00:33 01:28 WBC (3.8-10.6) k/uL RBC (4.30-5.90) m/uL Hgb (13.0-17.5) gm/dL Hct (39.0-53.0) % MCV (80.0-100.0) fL MCH (25.0-35.0) pg MCHC (31.0-37.0) g/dL RDW (11.5-15.5) % Plt Count (150-450) k/uL MPV Neutrophils % % Lymphocytes % % Monocytes % % Eosinophils % % Basophils % % Neutrophils # (1.3-7.7) k/uL Lymphocytes # (1.0-4.8) k/uL Monocytes # (0-1.0) k/uL Eosinophils # (0-0.7) k/uL Basophils # (0-0.2) k/uL PT (10.0-12.5) sec INR (<1.2) APTT (22.0-30.0) sec Sodium (137-145) mmol/L Potassium (3.5-5.1) mmol/L Chloride (98-107) mmol/L Carbon Dioxide (22-30) mmol/L Anion Gap mmol/L BUN (9-20) mg/dL Creatinine (0.66-1.25) mg/dL Est GFR (CKD-EPI)AfAm (>60 ml/min/1.73 sqM) Est GFR (CKD-EPI)NonAf (>60 ml/min/1.73 sqM) Glucose (74-99) mg/dL POC Glucose (mg/dL) 100 114 H (70-110) mg/dL POC Glu Repair Technician ID GELY Carey Lactic Ac Sepsis Rflx Plasma Lactic Acid Chau (0.7-2.0) mmol/L Calcium (8.4-10.2) mg/dL Magnesium (1.6-2.3) mg/dL Total Bilirubin (0.2-1.3) mg/dL AST (17-59) U/L ALT (4-49) U/L Alkaline Phosphatase (38-126) U/L Ammonia (<30) umol/L Troponin I (0.000-0.034) ng/mL Total Protein (6.3-8.2) g/dL Albumin (3.5-5.0) g/dL Triglycerides (0.00-149.00) mg/dL Cholesterol (0.00-200.00) mg/dL LDL Cholesterol, Calc (0.0-131.0) mg/dL VLDL Cholesterol, Calc (5.00-40.00) mg/dL HDL Cholesterol (40.00-60.00) mg/dL Cholesterol/HDL Ratio Ratio Urine Color Light Yellow Urine Appearance Clear (Clear) Urine pH 6.0 (5.0-8.0) Ur Specific [place] 1.009 (1.001-1.035) Urine Protein 1+ H (Negative) Urine Glucose (UA) Negative (Negative) Urine Ketones Negative (Negative) Urine Blood Negative (Negative) Urine Nitrite Negative (Negative) Urine Bilirubin Negative (Negative) Urine Urobilinogen <2.0 (<2.0) mg/dL Ur Leukocyte Esterase Negative (Negative) Urine RBC <1 (0-5) /hpf Urine WBC 5 (0-5) /hpf Hyaline Casts 21 H (0-2) /lpf Urine Mucus Rare H (None) /hpf Urine Opiates Screen (NotDetected) Ur Oxycodone Screen (NotDetected) Urine Methadone Screen (NotDetected) Ur Barbiturates Screen (NotDetected) U Tricyclic Antidepress (NotDetected) Ur Phencyclidine Scrn (NotDetected) Ur Amphetamines Screen (NotDetected) U Methamphetamines Scrn (NotDetected) U Benzodiazepines Scrn (NotDetected) Urine Cocaine Screen (NotDetected) U Marijuana (THC) Screen (NotDetected) Serum Alcohol mg/dL 09/25/24 09/25/24 09/25/24 Range/Units 07:03 07:03 07:03 WBC 7.4 (3.8-10.6) k/uL RBC 4.39 (4.30-5.90) m/uL Hgb 14.3 (13.0-17.5) gm/dL Hct 43.5 (39.0-53.0) % MCV 99.1 (80.0-100.0) fL MCH 32.5 (25.0-35.0) pg MCHC 32.8 (31.0-37.0) g/dL RDW 13.2 (11.5-15.5) % Plt Count 258 (150-450) k/uL MPV 7.3 Neutrophils % 74 % Lymphocytes % 17 % Monocytes % 5 % Eosinophils % 1 % Basophils % 1 % Neutrophils # 5.5 (1.3-7.7) k/uL Lymphocytes # 1.2 (1.0-4.8) k/uL Monocytes # 0.4 (0-1.0) k/uL Eosinophils # 0.1 (0-0.7) k/uL Basophils # 0.1 (0-0.2) k/uL PT (10.0-12.5) sec INR (<1.2) APTT (22.0-30.0) sec Sodium 135 L (137-145) mmol/L Potassium 3.7 (3.5-5.1) mmol/L Chloride 107 (98-107) mmol/L Carbon Dioxide 18 L (22-30) mmol/L Anion Gap 10 mmol/L BUN 10 (9-20) mg/dL Creatinine 0.82 (0.66-1.25) mg/dL Est GFR (CKD-EPI)AfAm >90 (>60 ml/min/1.73 sqM) Est GFR (CKD-EPI)NonAf >90 (>60 ml/min/1.73 sqM) Glucose 113 H (74-99) mg/dL POC Glucose (mg/dL) (70-110) mg/dL POC Glu Repair Technician ID Lactic Ac Sepsis Rflx Plasma Lactic Acid Chau (0.7-2.0) mmol/L Calcium 8.5 (8.4-10.2) mg/dL Magnesium (1.6-2.3) mg/dL Total Bilirubin 2.1 H (0.2-1.3) mg/dL AST 83 H (17-59) U/L ALT 63 H (4-49) U/L Alkaline Phosphatase 69 (38-126) U/L Ammonia (<30) umol/L Troponin I (0.000-0.034) ng/mL Total Protein 7.1 (6.3-8.2) g/dL Albumin 4.4 (3.5-5.0) g/dL Triglycerides 287.00 H (0.00-149.00) mg/dL Cholesterol 189.00 (0.00-200.00) mg/dL LDL Cholesterol, Calc 90.7 (0.0-131.0) mg/dL VLDL Cholesterol, Calc 57.40 H (5.00-40.00) mg/dL HDL Cholesterol 40.90 (40.00-60.00) mg/dL Cholesterol/HDL Ratio 4.62 Ratio Urine Color Urine Appearance (Clear) Urine pH (5.0-8.0) Ur Specific [place] (1.001-1.035) Urine Protein (Negative) Urine Glucose (UA) (Negative) Urine Ketones (Negative) Urine Blood (Negative) Urine Nitrite (Negative) Urine Bilirubin (Negative) Urine Urobilinogen (<2.0) mg/dL Ur Leukocyte Esterase (Negative) Urine RBC (0-5) /hpf Urine WBC (0-5) /hpf Hyaline Casts (0-2) /lpf Urine Mucus (None) /hpf Urine Opiates Screen (NotDetected) Ur Oxycodone Screen (NotDetected) Urine Methadone Screen (NotDetected) Ur Barbiturates Screen (NotDetected) U Tricyclic Antidepress (NotDetected) Ur Phencyclidine Scrn (NotDetected) Ur Amphetamines Screen (NotDetected) U Methamphetamines Scrn (NotDetected) U Benzodiazepines Scrn (NotDetected) Urine Cocaine Screen (NotDetected) U Marijuana (THC) Screen (NotDetected) Serum Alcohol mg/dL 09/25/24 Range/Units 07:23 WBC (3.8-10.6) k/uL RBC (4.30-5.90) m/uL Hgb (13.0-17.5) gm/dL Hct (39.0-53.0) % MCV (80.0-100.0) fL MCH (25.0-35.0) pg MCHC (31.0-37.0) g/dL RDW (11.5-15.5) % Plt Count (150-450) k/uL MPV Neutrophils % % Lymphocytes % % Monocytes % % Eosinophils % % Basophils % % Neutrophils # (1.3-7.7) k/uL Lymphocytes # (1.0-4.8) k/uL Monocytes # (0-1.0) k/uL Eosinophils # (0-0.7) k/uL Basophils # (0-0.2) k/uL PT (10.0-12.5) sec INR (<1.2) APTT (22.0-30.0) sec Sodium (137-145) mmol/L Potassium (3.5-5.1) mmol/L Chloride (98-107) mmol/L Carbon Dioxide (22-30) mmol/L Anion Gap mmol/L BUN (9-20) mg/dL Creatinine (0.66-1.25) mg/dL Est GFR (CKD-EPI)AfAm (>60 ml/min/1.73 sqM) Est GFR (CKD-EPI)NonAf (>60 ml/min/1.73 sqM) Glucose (74-99) mg/dL POC Glucose (mg/dL) (70-110) mg/dL POC Glu Repair Technician ID Lactic Ac Sepsis Rflx Plasma Lactic Acid Chau (0.7-2.0) mmol/L Calcium (8.4-10.2) mg/dL Magnesium (1.6-2.3) mg/dL Total Bilirubin (0.2-1.3) mg/dL AST (17-59) U/L ALT (4-49) U/L Alkaline Phosphatase (38-126) U/L Ammonia 9 (<30) umol/L Troponin I (0.000-0.034) ng/mL Total Protein (6.3-8.2) g/dL Albumin (3.5-5.0) g/dL Triglycerides (0.00-149.00) mg/dL Cholesterol (0.00-200.00) mg/dL LDL Cholesterol, Calc (0.0-131.0) mg/dL VLDL Cholesterol, Calc (5.00-40.00) mg/dL HDL Cholesterol (40.00-60.00) mg/dL Cholesterol/HDL Ratio Ratio Urine Color Urine Appearance (Clear) Urine pH (5.0-8.0) Ur Specific [place] (1.001-1.035) Urine Protein (Negative) Urine Glucose (UA) (Negative) Urine Ketones (Negative) Urine Blood (Negative) Urine Nitrite (Negative) Urine Bilirubin (Negative) Urine Urobilinogen (<2.0) mg/dL Ur Leukocyte Esterase (Negative) Urine RBC (0-5) /hpf Urine WBC (0-5) /hpf Hyaline Casts (0-2) /lpf Urine Mucus (None) /hpf Urine Opiates Screen (NotDetected) Ur Oxycodone Screen (NotDetected) Urine Methadone Screen (NotDetected) Ur Barbiturates Screen (NotDetected) U Tricyclic Antidepress (NotDetected) Ur Phencyclidine Scrn (NotDetected) Ur Amphetamines Screen (NotDetected) U Methamphetamines Scrn (NotDetected) U Benzodiazepines Scrn (NotDetected) Urine Cocaine Screen (NotDetected) U Marijuana (THC) Screen (NotDetected) Serum Alcohol mg/dL Disposition Clinical Impression: Seizure, Alcohol abuse, Fall, Abnormal CT scan, head, Lactic acidosis Disposition: ADMITTED IP TO THIS [facility] Condition: Stable Is patient prescribed a controlled substance at d/c from ED?: No Time of Disposition: 13:27 Decision to Admit Reason: Admit from EC Decision Date: 09/24/24 Decision Time: 13:27
[2024-09-24] MEDS: SODIUM CHLORIDE 0.9% 1,000 ML IV SCH (13:48)
--- NOTE | 2024-09-24 13:55 | P.HPIM ---
History of Present Illness 64-year-old male was brought in after his episode of seizure. Patient does drink half a pint to 1 pint of hard liquor every day. Patient admits to drinking alcohol today morning. His serum alcohol level was less than 10 patient had tonic-clonic seizure-like activity followed by loss of consciousness postictal state with elevated lactic acid of 13.9. Patient denied any history of seizures but had alcohol withdrawal seizures in the past. Serum sodium is low at 132. Patient is presently alert oriented x 3 only complaint is his back pain patient has a chronic back pain. Patient is willing to quit alcohol REVIEW OF SYSTEMS: All other systems are negative except those mentioned in the HPI PHYSICAL EXAMINATION: GENERAL: The patient is alert and oriented x3, not in any acute distress. Well developed, well nourished. Obese HEENT: Pupils are round and equally reacting to light. EOMI. No scleral icterus. No conjunctival pallor. Normocephalic, atraumatic. No pharyngeal erythema. No thyromegaly. CARDIOVASCULAR: S1 and S2 present. No murmurs, rubs, or gallops. PULMONARY: Chest is clear to auscultation, no wheezing or crackles. ABDOMEN: Soft, nontender, nondistended, normoactive bowel sounds. No palpable organomegaly. MUSCULOSKELETAL: No joint swelling or deformity. EXTREMITIES: No cyanosis, clubbing, or pedal edema. NEUROLOGICAL: Gross neurological examination did not reveal any focal deficits. SKIN: No rashes. Assessment and plan -Alcohol withdrawal seizures: Patient will be on Ativan CIWA protocol will add Librium as well patient is willing to quit alcohol patient will be on thiamine multivitamin supplementation. Patient also had a CT of the head which showed artifact versus questionable ischemia in the frontal lobe because of which neurology was consulted. Patient does have nonspecific white matter changes and chronic small small vessel ischemic changes. Patient will be started on aspirin and lipid panel will be obtained -Hypovolemic hyponatremia continue with IV fluids -Lactic acidosis secondary to seizure -Mild acute renal failure prerenal azotemia expected increase IV fluids -Hyperammonemia patient does not have any history of cirrhosis patient may have alcoholic hepatitis, hepatic encephalopathy patient will be started on lactulose -Acute alcoholic hepatitis expected to improve with cessation of alcohol -Alcohol abuse: Counseling was provided social work will be consulted DVT prophylaxis: Past Medical History Past Medical History: Unable to Obtain Additional Past Medical History / Comment(s): gout, past skull fracture (fell off bridge), tingling at times bilateral hands History of Any Multi-Drug Resistant Organisms: None Reported Past Surgical History: Unable to Obtain Additional Past Surgical History / Comment(s): L foot plate/screws, rhinoplasty Past Anesthesia/Blood Transfusion Reactions: No Reported Reaction Past Psychological History: No Psychological Hx Reported Past Alcohol Use History: Abuse, Daily, Heavy Past Drug Use History: Marijuana, Unable to Obtain - Past Family History Mother Family Medical History: Cancer Additional Family Medical History / Comment(s): Pt cannot recall type of cancer. Father Additional Family Medical History / Comment(s): ETOH Medications and Allergies Home Medications Medication Instructions Recorded Confirmed Type No Known Home Medications 09/24/24 09/24/24 History Allergies Allergy/AdvReac Type Severity Reaction Status Date / Time No Known Allergies Allergy Verified 09/24/24 12:23 Physical Exam Vitals: Vital Signs Temp Pulse Resp BP Pulse Ox 09/24/24 11:22 102 H 18 128/90 98 09/24/24 09:54 98.2 F 128 H 20 172/115 94 L Intake and Output 09/23/24 09/24/24 09/24/24 22:59 06:59 14:59 Other: Weight 90.718 kg Results CBC & Chem 7: 09/24/24 11:01 09/24/24 11:01 Labs: Abnormal Lab Results - Last 24 Hours (Table) 09/24/24 09/24/24 09/24/24 Range/Units 11:01 11:01 11:01 Lymphocytes # 0.7 L (1.0-4.8) k/uL APTT 20.3 L (22.0-30.0) sec Sodium 132 L (137-145) mmol/L Chloride 97 L (98-107) mmol/L Carbon Dioxide 10 L (22-30) mmol/L BUN 8 L (9-20) mg/dL Glucose 194 H (74-99) mg/dL Plasma Lactic Acid Chau (0.7-2.0) mmol/L Total Bilirubin 2.3 H (0.2-1.3) mg/dL AST 104 H (17-59) U/L ALT 68 H (4-49) U/L Ammonia (<30) umol/L 09/24/24 Range/Units 11:01 Lymphocytes # (1.0-4.8) k/uL APTT (22.0-30.0) sec Sodium (137-145) mmol/L Chloride (98-107) mmol/L Carbon Dioxide (22-30) mmol/L BUN (9-20) mg/dL Glucose (74-99) mg/dL Plasma Lactic Acid Chau 13.9 H* (0.7-2.0) mmol/L Total Bilirubin (0.2-1.3) mg/dL AST (17-59) U/L ALT (4-49) U/L Ammonia 103 H (<30) umol/L
[2024-09-24] MEDS: ENOXAPARIN 40 MG/0.4 ML SYRINGE SQ SCH (14:34)
[2024-09-24] MEDS: FAMOTIDINE 20 MG TAB PO SCH (14:34)
[2024-09-24 16:06] LABS: Appearance,Urine Clear (Clear); Bilirubin,Urine Negative (Negative); Blood,Urine Negative (Negative); Color,Urine Light Yellow; Glucose,Urine (UA) Negative (Negative); Hyaline Casts,Urine 21 /lpf (0-2); Ketones,Urine Negative (Negative); Leukocyte Esterase,Urine Negative (Negative); Mucus,Urine Rare /hpf; Nitrite,Urine Negative (Negative); Protein,Urine 1+ (Negative); RBC,Urine <1 /hpf (0-5); Specific Gravity,Urine 1.009 (1.001-1.035); Urobilinogen,Urine <2.0 mg/dL (<2.0); WBC,Urine 5 /hpf (0-5)
[2024-09-24 16:13] LABS: Amphetamine Screen,Urine Not Detected (NotDetected); Barbiturate Screen,Urine Not Detected (NotDetected); Benzodiazepines Screen,Urine Not Detected (NotDetected); Cocaine Screen,Urine Not Detected (NotDetected); Methadone Screen, Urine Not Detected (NotDetected); Opiate Screen,Urine Not Detected (NotDetected); Oxycodone Screen, Urine Not Detected (NotDetected); Phencyclidine Screen,Urine Not Detected (NotDetected); Tricyclic Antidepressant,Urine Not Detected (NotDetected); Urn Cannabinoid Scrn Not Detected (NotDetected)
[2024-09-24] MEDS: LACTULOSE 20 GM/30 ML CUP PO SCH (20:13)
[2024-09-25 00:34] LABS: Glucose,Whole Blood 100 mg/dL (70-110)
[2024-09-25 01:29] LABS: Glucose,Whole Blood 114 mg/dL (70-110)
[2024-09-25] MEDS: ACETAMINOPHEN TAB 325 MG TAB PO PRN (04:28)
[2024-09-25 07:39] LABS: Basophils # (A) 0.1 k/uL (0-0.2); Basophils % (A) 1 %; Eosinophils # (A) 0.1 k/uL (0-0.7); Eosinophils % (A) 1 %; HCT 43.5 % (39.0-53.0); HGB 14.3 gm/dL (13.0-17.5); Lymphocytes # (A) 1.2 k/uL (1.0-4.8); Lymphocytes % (A) 17 %; MCH 32.5 pg (25.0-35.0); MCHC 32.8 g/dL (31.0-37.0); MCV 99.1 fL (80.0-100.0); Mean Platelet Volume 7.3; Monocytes # (A) 0.4 k/uL (0-1.0); Monocytes % (A) 5 %; Neutrophils # (A) 5.5 k/uL (1.3-7.7); Neutrophils % (A) 74 %; Platelet Count 258 k/uL (150-450); RBC 4.39 m/uL (4.30-5.90); RDW 13.2 % (11.5-15.5); WBC 7.4 k/uL (3.8-10.6)
[2024-09-25 08:05] LABS: Anion Gap 10 mmol/L; Carbon Dioxide 18 mmol/L (22-30); Chloride 107 mmol/L (98-107); Glucose 113 mg/dL (74-99); Potassium 3.7 mmol/L (3.5-5.1); Sodium 135 mmol/L (137-145)
[2024-09-25 08:06] LABS: ALT 63 U/L (4-49); AST 83 U/L (17-59); African American GFR (CKD) >90 (>60 ml/min/1.73 sqM); Albumin 4.4 g/dL (3.5-5.0); Alkaline Phosphatase 69 U/L (38-126); Blood Urea Nitrogen 10 mg/dL (9-20); Calcium 8.5 mg/dL (8.4-10.2); Non-African American GFR(CKD) >90 (>60 ml/min/1.73 sqM); Total Bilirubin 2.1 mg/dL (0.2-1.3); Total Protein 7.1 g/dL (6.3-8.2)
[2024-09-25] MEDS: ASPIRIN 81 MG PO SCH (09:05)
--- NOTE | 2024-09-25 11:20 | P.CNNES ---
History of Present Illness Consult date: 09/25/24 Requesting physician: Monica Mathews Reason for Consult: abnl ct, seizure, suspect alcohol withdrawal History of Present Illness: This is a tele-visit. This is a 64-year-old gentleman with history of seizure on 02/2024, medication noncompliance, significant alcohol use as well as tobacco use who presents to the emergency department because of episode of confusion. Patient states that this past Monday he was not feeling well felt off. He states that he drinks significant alcohol use he drinks whiskey and he drinks until he is knocked out. He drinks almost on a daily basis. He states that yesterday he felt he is doing okay he went to the store and he got a drink and he took 1 sip, felt his legs were wobbly and felt off around 930 and fell backward but denies any loss of consciousness. He denies he denies any urinary or bowel incontinence. Patient feels back to baseline. Patient was seen by me in February 2024 in our facility and he had a new onset seizure and he had the workup and the EEG was normal. He was placed on Keppra 500 mg twice daily. Patient stated that he took it for he thinks a month or 2 but never followed up with a neurologist and continue to drink. He also has not seen his primary care physician and possibly 3 years. He smokes cigarettes. As stated earlier I have seen the patient in February 2024. Please refer to my notes for further details. Some of the workup during this hospital visit consisted of: Plasma lactic acid vein is 13.9 AST of 104 ALT of 68 Ammonia level is 103 I reviewed the rest of the lab workup. Urine drug screen is nondetected and serum alcohol is less than 10 CT of the head is reported as questionable ischemia versus artifact within the right frontal lobe. Further evaluation with MRI is recommended. I personally reviewed the CT and I agree with the CT interpretation. Review of Systems As per HPI. Past Medical History Past Medical History: Unable to Obtain Additional Past Medical History / Comment(s): gout, past skull fracture (fell off bridge), tingling at times bilateral hands History of Any Multi-Drug Resistant Organisms: None Reported Past Surgical History: Unable to Obtain Additional Past Surgical History / Comment(s): L foot plate/screws, rhinoplasty Past Anesthesia/Blood Transfusion Reactions: No Reported Reaction Past Psychological History: No Psychological Hx Reported Past Alcohol Use History: Abuse, Daily, Heavy Past Drug Use History: Marijuana, Unable to Obtain - Past Family History Mother Family Medical History: Cancer Additional Family Medical History / Comment(s): Pt cannot recall type of cancer. Father Additional Family Medical History / Comment(s): ETOH Medications and Allergies Home Medications Medication Instructions Recorded Confirmed Type Aspirin 81 mg PO DAILY #30 tab 09/25/24 Rx Famotidine [Pepcid] 20 mg PO DAILY #30 tab 09/25/24 Rx Multivitamins, Thera [Multivitamin 1 each PO DAILY@1200 #30 tab 09/25/24 Rx (formulary)] Thiamine [Vitamin B-1] 100 mg PO DAILY #30 tab 09/25/24 Rx levETIRAcetam [Keppra] 750 mg PO Q12HR #60 tab 09/25/24 Rx Allergies Allergy/AdvReac Type Severity Reaction Status Date / Time No Known Allergies Allergy Verified 09/24/24 12:23 Physical Examination - Vital Signs Vital Signs: Vital Signs Pulse Resp BP Pulse Ox 09/25/24 06:21 85 16 137/92 96 09/25/24 03:35 86 18 155/95 96 09/25/24 03:00 80 18 151/109 94 L 09/25/24 02:00 92 18 152/120 09/24/24 22:00 102 H 18 162/88 09/24/24 20:23 96 18 160/120 98 09/24/24 18:00 88 18 146/110 97 09/24/24 15:41 96 18 128/90 98 09/24/24 11:22 102 H 18 128/90 98 Televisit Examination. Assisted by Kanwal Villegas. GENERAL: The patient is lying in bed and is not in acute distress. NEUROLOGICAL: Higher mental function: The patient is awake, alert, oriented to self, place and time. Patient is following commands. No aphasia. Cranial nerves: The pupils are round, equal and reactive to light and accommodation. Visual marcum are full to confrontation throughout. Extraocular movement is intact no nystagmus is noted. Facial sensation is normal to touch throughout. The facial strength is normal throughout. Tongue is midline and moved [id number] without any difficulty. No dysarthria is noted. Shoulder shrug is normal bilaterally. Motor: The strength is 5 over 5 throughout. Cerebellum: Has some limiation of the right upper extremity because of pain but otherwise normal finger to nose bilaterally. Sensation: Sensation is normal to touch throughout. Reflexes (right/left): 2+ Plantars are mute bilaterally. Results - Laboratory Findings CBC and BMP: 09/25/24 07:03 09/25/24 07:03 Abnormal Lab Findings: Abnormal Labs 09/24/24 09/24/24 09/24/24 11:01 11:01 11:01 Lymphocytes # 0.7 L APTT 20.3 L Sodium 132 L Chloride 97 L Carbon Dioxide 10 L BUN 8 L Glucose 194 H POC Glucose (mg/dL) Plasma Lactic Acid Chau Total Bilirubin 2.3 H AST 104 H ALT 68 H Ammonia Urine Protein Hyaline Casts Urine Mucus 09/24/24 09/24/24 09/25/24 11:01 15:41 01:28 Lymphocytes # APTT Sodium Chloride Carbon Dioxide BUN Glucose POC Glucose (mg/dL) 114 H Plasma Lactic Acid Chau 13.9 H* Total Bilirubin AST ALT Ammonia 103 H Urine Protein 1+ H Hyaline Casts 21 H Urine Mucus Rare H 09/25/24 07:03 Lymphocytes # APTT Sodium 135 L Chloride Carbon Dioxide 18 L BUN Glucose 113 H POC Glucose (mg/dL) Plasma Lactic Acid Chau Total Bilirubin 2.1 H AST 83 H ALT 63 H Ammonia Urine Protein Hyaline Casts Urine Mucus Assessment and Plan Assessment: This is a 64-year-old gentleman with history of new onset seizure 105 2023 and it was felt due to alcohol withdrawal who is not compliant taking Keppra, significant alcohol use, tobacco use who presents because of confusion and unsteady gait and fell backward. His plasma lactic acid vein was elevated. Alcohol level was less than 10. Breakthrough seizure likely due to alcohol withdrawal and medication noncompl iance Questionable abnormal CT over the right frontal concern for stroke versus artifact Elevated ammonia and this could be due to seizure History of new onset seizure on 02/2024 and he was placed on Keppra but will is not compliant taking medication Significant alcohol use and states that he drinks heavy alcohol/whiskey "until gets knocked out" Tobacco use Medication noncompliance Plan: I started the patient on Keppra 750 mg twice daily Ordered routine EEG Ordered MRI of the brain I started the patient on thiamine 100 mg daily Seizure precautions seizure pads Per [facility] because of the seizure, to avoid driving for 6 months until the last episode, avoid heights, avoid swimming unassisted or using heavy machinery. Patient was counseled on alcohol cessation and tobacco cessation Patient was counseled on medication compliance. Will defer the rest of the medical management to primary and other specialist Upon discharge recommend the patient to follow-up with a neurologist as an outpatient within 2 weeks The plan discussed with the patient as well as the primary team nurse practitioner. Time with Patient: Greater than 30
[2024-09-25] MEDS: SODIUM CHLORIDE 0.9% 1,000 ML IV SCH (11:51)
[2024-09-25] MEDS: MULTIVITAMINS, THERA 1 EACH TAB PO SCH (11:51)
[2024-09-25] MEDS: THIAMINE 100 MG TAB PO SCH (16:44)
[2024-09-25] MEDS: LORazepam 2 MG/ML INJ IV PRN (16:44)
[2024-09-25] MEDS: LOSARTAN 25 MG TAB PO SCH ×2 (16:44→21:47)
[2024-09-25 17:05] LABS: Chol/HDL Ratio 4.62 Ratio
[2024-09-25 17:06] LABS: LDL Cholesterol,Calculated 90.7 mg/dL (0.0-131.0)
--- NOTE | 2024-09-25 20:46 | P.PN ---
Subjective Progress Note Date: 09/25/24 64-year-old male was brought in after his episode of seizure. Patient does drink half a pint to 1 pint of hard liquor every day. Patient admits to drinking alcohol today morning. His serum alcohol level was less than 10 patient had tonic-clonic seizure-like activity followed by loss of consciousness postictal state with elevated lactic acid of 13.9. Patient denied any history of seizures but had alcohol withdrawal seizures in the past. Serum sodium is low at 132. Patient is presently alert oriented x 3 only complaint is his back pain patient has a chronic back pain. Patient is willing to quit alcohol 09/25/2024 Patient is evaluated today in follow up in the ER currently pending a bed on the medical floor. He has not had any symptoms of alcohol withdrawal overnight and has not require any ativan as of yet today. He is awake alert and oriented. Was started on lactulose 20 mg BID for the elevated ammonia and reports having 2 loose BMs so far and repeat ammonia level is 9. Neurology consultation pending with concern for ischemia noted on brain CT as questionable. MRI unable to be completed until tomorrow. Blood pressure elevated at 161/119. Panel revealing triglycerides of 287 cholesterol 189, LDL 57.0, LDL 90.7. Bilirubin of 2.1 AST of 83 ALT of 63. Review of Systems Constitutional: Denied any fatigue denied any fever. Cardio vascular: denied any chest pain, palpitations Gastrointestinal: denied any nausea, vomiting, diarrhea Pulmonary: Denied any shortness of breath cough Neurologic denied any new focal deficits All inpatient medications were reviewed and appropriate changes in these medications as dictated in the interval history and assessment and plan. PHYSICAL EXAMINATION: GENERAL: The patient is alert and oriented x3, not in any acute distress. Well developed, well nourished. Obese HEENT: Pupils are round and equally reacting to light. EOMI. No scleral icterus. No conjunctival pallor. Normocephalic, atraumatic. No pharyngeal erythema. No thyromegaly. CARDIOVASCULAR: S1 and S2 present. No murmurs, rubs, or gallops. PULMONARY: Chest is clear to auscultation, no wheezing or crackles. ABDOMEN: Soft, nontender, nondistended, normoactive bowel sounds. No palpable organomegaly. MUSCULOSKELETAL: No joint swelling or deformity. EXTREMITIES: No cyanosis, clubbing, or pedal edema. NEUROLOGICAL: Gross neurological examination did not reveal any focal deficits. SKIN: No rashes. Assessment and plan -Alcohol withdrawal seizures: Patient will be on Ativan CIWA protocol will add Librium as well patient is willing to quit alcohol patient will be on thiamine multivitamin supplementation. -CT of the head which showed artifact versus questionable ischemia in the frontal lobe because of which neurology was consulted. Patient does have nonspecific white matter changes and chronic small small vessel ischemic changes. -Hypovolemic hyponatremia continue with IV fluids -Lactic acidosis secondary to seizure lactic acid has normalized -Mild acute renal failure prerenal azotemia, improved with IV hydration renal function has now normalized -Hyperammonemia patient does not have any history of cirrhosis patient may have alcoholic hepatitis, hepatic encephalopathy patient will be started on lactulose ammonia level is now down to 9. -Acute alcoholic hepatitis expected to improve with cessation of alcohol -Alcohol abuse: Counseling was provided social work will be consulted DVT prophylaxis: Lovenox GI prophylaxis Pepcid Full Code Plan Continue lactulose for another 24 hours and can discontinue tomorrow as ammonia level has improved Pending brain MRI which cannot be completed until tomorrow Pending EEG Patient has been started on oral keppra BID which will be continued. Has been on keppra in the past but was noncompliant states he ran out of refills on all his home medications and has yet to follow up with his PCP in the office for refills. Continue ativan CIWA protocol and monitor for any further seizure like activity Neurology has been consulted D/C in the next 24 hours. Repeat CMP in the AM. The impression and plan of care has been dictated by Virginia Barron, Nurse Practitioner as directed. Dr. Madhu MD I have performed a history and physical examination and medical decision making of this patient, discussed the same with the dictator, and agree with the dictators assessment and plan as written, documented as a scribe. Based on total visit time, I have performed more than 50% of this visit. Objective - Vital Signs Vital signs: Vital Signs Temp 99.4 F 09/25/24 19:52 Pulse 89 09/25/24 19:52 Resp 18 09/25/24 19:52 BP 162/111 09/25/24 19:52 Pulse Ox 95 09/25/24 19:52 FiO2 Intake & Output 09/25/24 09/25/24 09/26/24 06:59 18:59 06:59 Weight 90.718 kg - Labs CBC & Chem 7: 09/25/24 07:03 09/25/24 07:03 Labs: Abnormal Lab Results - Last 24 Hours (Table) 09/25/24 09/25/24 09/25/24 Range/Units 01:28 07:03 07:03 Sodium 135 L (137-145) mmol/L Carbon Dioxide 18 L (22-30) mmol/L Glucose 113 H (74-99) mg/dL POC Glucose (mg/dL) 114 H (70-110) mg/dL Total Bilirubin 2.1 H (0.2-1.3) mg/dL AST 83 H (17-59) U/L ALT 63 H (4-49) U/L Triglycerides 287.00 H (0.00-149.00) mg/dL VLDL Cholesterol, Calc 57.40 H (5.00-40.00) mg/dL Assessment and Plan Time with Patient: Less than 30
--- NOTE | 2024-09-26 00:32 | EEG ---
ELECTROENCEPHALOGRAM REPORT CLINICAL HISTORY: This is a 64-year-old gentleman with history of seizure, alcohol use, who presented to the emergency department because of a fall and confusion. The video EEG is obtained to evaluate for seizure epileptiform activity. RELEVANT MEDICATION: Keppra. EEG TYPE: This is a routine 21-channel EEG with video using the 10/20 electrode placement system. DESCRIPTION: Wakefulness is only obtained. During awake state, the posterior-dominant rhythm consists of [id number] voltage of 8.5 to 9 hertz activity that is well modulated, well sustained. There was no physiological stage 2 sleep architecture. There is mild to moderate left temporal artifact. Interictal and ictal appears to be sharply contoured activity over the left temporal region, predominantly over the T5. Otherwise, there is no clear epileptiform discharge or seizure on the EEG. ACTIVATION PROCEDURE: Photic stimulation did not evoke posterior driving response. There is no abnormality during the photic stimulation. Hyperventilation is not performed. CLINICAL INTERPRETATION: This is an abnormal routine EEG. The background is normal. There appears to be sharply contoured activity over the left temporal predominant over T5 lead which can cause cortical irritability. No clear epileptiform discharges or seizure on the EEG. Clinical correlation is recommended. MMODL / IJN: [id number] /
[2024-09-26] MEDS: LOSARTAN 25 MG TAB PO STA (00:43)
[2024-09-26 03:42] VITALS: RESP 16
[2024-09-26 07:48] LABS: ALT 45 U/L (4-49); AST 49 U/L (17-59); African American GFR (CKD) >90 (>60 ml/min/1.73 sqM); Albumin 4.1 g/dL (3.5-5.0); Alkaline Phosphatase 62 U/L (38-126); Anion Gap 8 mmol/L; Blood Urea Nitrogen 10 mg/dL (9-20); Calcium 8.8 mg/dL (8.4-10.2); Carbon Dioxide 23 mmol/L (22-30); Chloride 106 mmol/L (98-107); Glucose 105 mg/dL (74-99); Non-African American GFR(CKD) >90 (>60 ml/min/1.73 sqM); Potassium 3.4 mmol/L (3.5-5.1); Sodium 137 mmol/L (137-145); Total Bilirubin 1.5 mg/dL (0.2-1.3); Total Protein 6.7 g/dL (6.3-8.2)
[2024-09-26] MEDS: amLODIPine 5 MG TAB PO SCH (08:12)
[2024-09-26 08:19] VITALS: TEMP 98.5
--- NOTE | 2024-09-26 11:33 | MR ---
EXAMINATION TYPE: MR brain wo con DATE OF EXAM: 09/26/2024 11:16 AM COMPARISON: 03/06/2024. CLINICAL INDICATION: Male, 64 years old with history of questionable ischemia in the frontal lobe alt ered mental status TECHNIQUE: Multi planar, multi sequence imaging was performed through the brain including: T1, T2, In version recovery, Diffusion weighted imaging, and gradient echo imaging. No gadolinium was given. FINDINGS: Mild cerebral atrophy with proportional dilation of ventricular system. Scattered foci of high T2 s ignal intensity are seen within the periventricular white matter. Midline structures show no abnormal ity. Diffusion-weighted imaging shows no evidence of restricted diffusion. The susceptibility weighte d images do not reveal any evidence for micro-hemorrhage. Right frontal lobe susceptibility blooming artifact is seen in multiple areas are similar to prior The bone marrow signal is within normal limit s. Paranasal sinuses and mastoid air cells: No significant paranasal sinus disease. Visualized orbits: Orbital contents are intact. IMPRESSION: Area on prior CT is felt to represent artifact. 1. No evidence of intracranial mass or acute/subacute infarct. 2. Nonspecific white matter changes, likely secondary to small vessel ischemic disease. 3. Right frontal lobe foci of blooming artifact compatible with hemosiderin deposition possibly from prior injuries. [facility], , 09/26/2024 11:31 AM
[2024-09-26 11:58] VITALS: BP 173/109; PULSE 89
--- NOTE | 2024-09-26 14:10 | P.PN ---
Subjective Progress Note Date: 09/26/24 I am following up with the patient's and patient feels back to baseline. No further episodes of confusion seizure-like activity falls. He feels back to baseline. He stated that he did have a severe head injury in the past when he was may be 16 years old and was in a comatose state. Objective - Vital Signs Vital signs: Vital Signs Temp 98.5 F 09/26/24 08:00 Pulse 89 09/26/24 11:57 Resp 16 09/26/24 11:57 BP 173/109 09/26/24 11:57 Pulse Ox 98 09/26/24 11:57 FiO2 Intake & Output 09/25/24 09/26/24 09/26/24 18:59 06:59 18:59 Intake Total 118 Balance 118 Weight 90.718 kg 94.2 kg Intake: Oral 118 Other: Voiding Method Toilet Toilet # Voids 1 1 - Exam GENERAL: The patient is sitting on side of bed and is not in acute distress. NEUROLOGICAL: Higher mental function: The patient is awake, alert, oriented to self, place and time. Patient is following commands. No aphasia and no neglect. Cranial nerves: The pupils are round, equal and reactive to light and accommodation. Visual marcum are full to confrontation throughout. Extraocular movement is intact no nystagmus is noted. Facial sensation is normal to touch throughout. The facial strength is normal throughout. Hearing is normal bilaterally to hand rub. Tongue is midline and moved [id number] without any difficulty. No dysarthria is noted. Shoulder shrug is normal bilaterally. Motor: The strength is 5 over 5 throughout. Normal tone and bulk. Cerebellum: Normal finger to nose bilaterally. Sensation: Sensation is normal to touch throughout. Some of the workup during this hospital visit consisted of: Plasma lactic acid vein is 13.9 AST of 104 ALT of 68 Ammonia level is 103 I reviewed the rest of the lab workup. Urine drug screen is nondetected and serum alcohol is less than 10 CT of the head is reported as questionable ischemia versus artifact within the right frontal lobe. Further evaluation with MRI is recommended. I personally reviewed the CT and I agree with the CT interpretation. Routine EEG is abnormal. The background is normal. There appears to be sharply contoured activity over the left temporal predominantly over T5 lead which can cause cortical irritability. No clear epileptiform discharge or seizure on the EEG. MRI of the brain is reported as area on prior CT felt represent artifact. No evidence of intracranial mass or acute/subacute infarct. Nonspecific white matter changes, likely secondary to small vessel ischemic disease. Right frontal lobe foci of blooming artifact compatible with hemosiderin deposition possibly from prior injury. - Labs CBC & Chem 7: 09/25/24 07:03 09/26/24 07:03 Labs: Abnormal Lab Results - Last 24 Hours (Table) 09/25/24 09/26/24 Range/Units 07:03 07:03 Potassium 3.4 L (3.5-5.1) mmol/L Glucose 105 H (74-99) mg/dL Total Bilirubin 1.5 H (0.2-1.3) mg/dL Triglycerides 287.00 H (0.00-149.00) mg/dL VLDL Cholesterol, Calc 57.40 H (5.00-40.00) mg/dL Assessment and Plan Assessment: This is a 64-year-old gentleman with history of new onset seizure 105 2023 and it was felt due to alcohol withdrawal who is not compliant taking Keppra, s ignificant alcohol use, tobacco use who presents because of confusion and unsteady gait and fell backward. His plasma lactic acid vein was elevated. Alcohol level was less than 10. Breakthrough seizure likely due to alcohol withdrawal and medication noncompliance Questionable abnormal CT over the right frontal concern for stroke versus artifact Elevated ammonia and this could be due to seizure History of new onset seizure on 02/2024 and he was placed on Keppra but will is not compliant taking medication Significant alcohol use and states that he drinks heavy alcohol/whiskey "until gets knocked out" History of traumatic brain injury at the age of [age] years old and patient stated he he was in a comatose state Tobacco use Medication noncompliance Plan: Continue Keppra 750 mg twice daily Continue thiamine 100 mg daily Seizure precautions seizure pads Per [facility] because of the seizure, to avoid driving for 6 months until the last episode, avoid heights, avoid swimming unassisted or using heavy machinery. Patient was counseled on alcohol cessation and tobacco cessation Patient was counseled on medication compliance. Will defer the rest of the medical management to primary and other specialist Upon discharge recommend the patient to follow-up with a neurologist as an outpatient within 2 weeks The plan discussed with the patient and his nurse. There is no further neurological work-up. Time with Patient: Less than 30
--- NOTE | 2024-09-27 13:11 | P.DS ---
Providers Date of admission: 09/25/24 09:08 Expected date of discharge: 09/26/24 Attending physician: Gerardo Leung Consults: 09/24/24 13:27 Consult Physician Urgent Consulting Provider: Declan Abdul Consult Reason/Comments: abn ct brain, seizure, suspected etoh withdrawal Do you want consulting provider notified?: Yes [facility] Course: Final diagnosis -Alcohol withdrawal seizures with acute alcohol intoxication and early delirium tremens -CT of the head which showed artifact versus questionable ischemia in the frontal lobe because of which neurology was consulted. Patient does have nonspecific white matter changes and chronic small small vessel ischemic changes. MRI was negative -Hypovolemic hyponatremia, improved with fluids -Lactic acidosis secondary to seizure, lactic acid has normalized -Mild acute renal failure prerenal azotemia, improved with IV hydration renal function has now normalized -Hyperammonemia patient does not have any history of cirrhosis patient may have alcoholic hepatitis, hepatic encephalopathy, improved -Acute alcoholic hepatitis expected to improve with cessation of alcohol -Alcohol abuse: Counseling was provided social work will be consulted DVT prophylaxis: Lovenox GI prophylaxis Pepcid Full Code Discharge disposition Patient is being discharged in a stable condition with guarded prognosis to home. Patient will follow-up with Dr. Eddie Gonzalez in the outpatient setting upon discharge. Patient is to continue with current medications and outpatient follow-up with neurology as scheduled. Recommend complete alcohol cessation. Strongly recommend inpatient alcohol rehab. Resources provided on discharge. Total time taken is greater than 35 minutes. Hospital course This is a 64-year-old male who was recently admitted with alcohol withdrawal and seizures being closely monitored. Patient also with acute alcohol intoxication placed on CIWA protocol also evaluated by neurology underwent MRI with no acute process noted. Patient improved with gentle hydration and continued on CIWA protocol. Patient is not actively withdrawing and will be discharged home today. Patient reports to feeling well and would like to go home. Discussed with the patient about alcohol cessation and strongly recommend inpatient alcohol rehab. Resources provided on discharge. Patient instructed to follow- up with neurology along with primary care provider on discharge. Please refer to other consultation notes for further HPI. Currently no reports of chest pain, shortness of breath, or palpitations. Patient is afebrile. No reports of nausea or vomiting and patient is tolerating diet. Patient will be discharged home today. High risk for readmissions given patient's continued ongoing alcohol abuse. Physical exam: Gen: This is a 64-year-old male who is awake, alert and oriented x 3, well- developed, appears elderly, obese HEENT: Head is atraumatic, normocephalic. Pupils equal, round. Sclerae is anicteric. NECK: Supple. No JVD. No lymphadenopathy. No thyromegaly. LUNGS: Clear to auscultation. No wheezes or rhonchi. No intercostal retractions. HEART: Regular rate and rhythm. No murmur. ABDOMEN: Soft. Bowel sounds are present. No masses. No tenderness. EXTREMITIES: No pedal edema. No calf tenderness. NEUROLOGICAL: Patient is awake, alert and oriented x3. Cranial nerves 2 through 12 are grossly intact. Please refer to medication reconciliation sheet for a list of medications. The impression and plan of care has been dictated by Gaby Vega, Nurse Practitioner as directed. Dr. Madhu MD I have performed a history and examination and MDM of this patient, discussed the same with the dictator, and agree with the dictator's assessment and plan as written ,documented as a scribe. Based on total visit time, I have performed more than 50% of the visit. Patient Condition at Discharge: Stable Plan - Discharge Summary Discharge Rx Participant: No New Discharge Prescriptions: New Aspirin 81 mg PO DAILY #30 tab Multivitamins, Thera [Multivitamin (formulary)] 1 each PO DAILY@1200 #30 tab Losartan [Cozaar] 25 mg PO BID #60 tab amLODIPine [Norvasc] 5 mg PO DAILY #30 tab Acetaminophen Tab [Tylenol] 650 mg PO Q6HR PRN tab PRN Reason: Mild Pain Or Fever > 100.5 levETIRAcetam [Keppra] 750 mg PO Q12HR #60 tab Famotidine [Pepcid] 20 mg PO DAILY #30 tab Thiamine [Vitamin B-1] 100 mg PO DAILY #30 tab Discharge Medication List Aspirin 81 mg PO DAILY #30 tab 09/25/24 [Rx] Famotidine [Pepcid] 20 mg PO DAILY #30 tab 09/25/24 [Rx] Multivitamins, Thera [Multivitamin (formulary)] 1 each PO DAILY@1200 #30 tab 09/25/24 [Rx] Thiamine [Vitamin B-1] 100 mg PO DAILY #30 tab 09/25/24 [Rx] levETIRAcetam [Keppra] 750 mg PO Q12HR #60 tab 09/25/24 [Rx] Acetaminophen Tab [Tylenol] 650 mg PO Q6HR PRN tab 09/26/24 [Rx] Losartan [Cozaar] 25 mg PO BID #60 tab 09/26/24 [Rx] amLODIPine [Norvasc] 5 mg PO DAILY #30 tab 09/26/24 [Rx] Follow up Appointment(s)/Referral(s): Prosper Coy MD [REFERRING] - 1 Week (Neurology will call with an appt time.) Iveth Goode MD [Primary Care Provider] - 1-2 days Ambulatory/Diagnostic Orders: Basic Metabolic Panel [LAB.AMB] Time Frame: 3 Days, Location: None Selected Comprehensive Metabolic Panel [LAB.AMB] Location: None Selected Magnesium [LAB.AMB] Location: None Selected Activity/Diet/Wound Care/Special Instructions: [place] law no driving for 6 months or until seizure free. Continue the oral keppra twice a day Follow with a neurologist on discharge Recommend to quit alcohol. Community resources have been provided. Discharge/Stand Alone Forms: AA Meetings [address] - [facility], AA Meetings [address], Community Resources, In Substance Abuse Facilities Discharge Disposition: HOME SELF-CARE
== END 2024-09-26 13:35 | disposition home or self-care (01) | DRG 101 ==
LOC: EC 09:44 → 3SCARD 13:29 → OBSVTOIN 09-25 09:08 → 3SCARD 09-25 12:14
PROVIDERS: ADMIT Internal Medicine; ATTEND Internal Medicine
PROC: 4A00X4Z Measurement of Central Nervous Electrical Activity, External Approach (ICD-10-PCS; principal; 2024-09-25)
PROC: HZ2ZZZZ Detoxification Services for Substance Abuse Treatment (ICD-10-PCS; 2024-09-25)
DX: R56.9 Unspecified convulsions (principal); E87.1 Hypo-osmolality and hyponatremia; E87.20 Acidosis, unspecified; F10.231 Alcohol dependence with withdrawal delirium; N17.9 Acute kidney failure, unspecified; E86.1 Hypovolemia; F10.229 Alcohol dependence with intoxication, unspecified; F17.210 Nicotine dependence, cigarettes, uncomplicated; G89.29 Other chronic pain; M54.9 Dorsalgia, unspecified; K70.10 Alcoholic hepatitis without ascites; W19.XXXA Unspecified fall, initial encounter; Z79.82 Long term (current) use of aspirin; Z79.899 Other long term (current) drug therapy; Z87.820 Personal history of traumatic brain injury; Z87.828 Personal history of other (healed) physical injury and trauma; Z91.148 Patient's other noncompliance with medication regimen for other reason; Z71.41 Alcohol abuse counseling and surveillance of alcoholic; M10.9 Gout, unspecified; Z87.81 Personal history of (healed) traumatic fracture
CPT/HCPCS: 36415; 70450; 70551; 71046; 80053; 80061; 80306; 80320; 81001; 82140; 83605; 83735; 84484; 85025; 85610; 85730; 93005; 95816; 96361; 96372; 96374; 99285